=== PATIENT | female | born 1950 | race Caucasian/White ===

== ENCOUNTER → 2018-01-26 10:02 | Outpatient (CLI) | payer MEDICARE, SELFPAY ==
[2018-01-26 10:52] LABS: Add Manual Diff / Slide Review NO; Basophils Percent Auto 0.8 % (0-2); Eosinophils Percent Auto 4.3 % (2-4); Hematocrit 42.7 % (36-46); Hemoglobin 14.3 g/dL (12.0-16.0); Lymphocytes Percent Auto 53.9 % (25-40); Mean Corpuscular HGB Conc 33.5 % (30-36); Mean Corpuscular Hemoglobin 32.5 PG (26-34); Monocytes Percent Auto 6.5 % (3-14); Neutrophils Absolute Auto 1800 /uL (3000-5900); Neutrophils Percent Auto 34.5 % (50-75); Platelet Count 288 X10^3/uL (150-400); Red Cell Distribution Width 13.2 % (11.6-14.8); White Blood Cell Count 5.2 X10^3/uL (4.5-11.0)
[2018-01-26 11:15] LABS: Alanine Aminotransferase 38 IU/L (9-52); Albumin 4.8 g/dL (3.5-5.0); Alkaline Phosphatase 64 U/L (38-126); Aspartate Aminotransferase 23 IU/L (14-36); BUN Creatinine Ratio 23.3 (6-22); Bilirubin Total 0.7 mg/dL (0.2-1.3); Blood Urea Nitrogen 14 mg/dL (7-17); Calcium 9.9 mg/dL (8.4-10.2); Carbon Dioxide 28 mmol/L (22-32); Chloride 102 mmol/L (98-107); Cholesterol 264 mg/dL (140-199); Estimated Glomerular Filt Rate > 60.0 mL/min (>60); Globulin 2.4 g/dL (1.7-4.1); Glucose 97 mg/dL (80-110); HDL Cholesterol 95 mg/dL (40-60); HEMOLYSIS < 15 (0-50); LDL Cholesterol Calculated 146 mg/dL (<100); Potassium 4.9 mmol/L (3.4-5.1); Sodium 141 mmol/L (137-145); Total Protein 7.2 g/dL (6.3-8.2); Triglycerides 115 mg/dL (35-150)
[2018-01-26 11:46] LABS: Thyroid Stimulating Hormone 0.56 uIU/mL (0.47-4.68)
== END ==
PROVIDERS: PCP Internal Medicine; Visit Provider Internal Medicine
DX: E78.5 Hyperlipidemia, unspecified (principal); M81.0 Age-related osteoporosis without current pathological fracture; Z87.19 Personal history of other diseases of the digestive system
CPT/HCPCS: 36415; 80053; 80061; 84443; 85025

== ENCOUNTER → 2018-02-20 09:38 | Outpatient (CLI) | payer MEDICARE, SELFPAY | PROVIDERS: PCP Internal Medicine; Visit Provider Internal Medicine | DX: M81.0 Age-related osteoporosis without current pathological fracture (principal); Z78.0 Asymptomatic menopausal state; E78.5 Hyperlipidemia, unspecified; Z87.19 Personal history of other diseases of the digestive system; Z82.62 Family history of osteoporosis; Z87.891 Personal history of nicotine dependence | CPT/HCPCS: 77080 ==

== ENCOUNTER → 2019-10-14 13:35 | Outpatient (CLI) | payer MEDICARE, OTHER, SELFPAY | PROVIDERS: PCP Internal Medicine; Referring Provider Internal Medicine; Visit Provider Internal Medicine | DX: Z13.820 Encounter for screening for osteoporosis (principal); M85.851 Other specified disorders of bone density and structure, right thigh; Z78.0 Asymptomatic menopausal state; Z87.891 Personal history of nicotine dependence; Z82.62 Family history of osteoporosis | CPT/HCPCS: 77080 ==

== ENCOUNTER → 2019-10-18 16:38 | Outpatient (CLI) | payer MEDICARE, OTHER, SELFPAY ==
--- NOTE | 2019-10-18 16:42 | DI.MG.S_ITS ---
BILATERAL DIGITAL SCREENING MAMMOGRAM 3D/2D WITH CAD: 10/18/2019 CLINICAL: Routine screening. Comparison is made to exams dated: 06/02/2017 mammogram, 04/22/2016 mammogram, 09/28/2015 mammogram, and 03/30/2015 mammogram - [facility]. The tissue of both breasts is heterogeneously dense. This may lower the sensitivity of mammography. Current study was also evaluated with a Computer Aided Detection (CAD) system. No significant masses, calcifications, or other findings are seen in either breast. There has been no significant interval change. IMPRESSION: NEGATIVE There is no mammographic evidence of malignancy. A 1 year screening mammogram is recommended. This exam was interpreted at Station ID: [id number]. NOTE: For mammograms, a report in lay terms will be sent to the patient. Approximately 15% of breast malignancies will not be visualized mammographically. In the management of a palpable breast mass, a negative mammogram must not discourage biopsy of a clinically suspicious lesion. Electronically Signed By: Traci dumont/fan:10/19/2019 08:38:42 copy to: Deanne Romero letter sent: Normal Exam ACR BI-RADS Category 1: Negative 3341F
== END ==
PROVIDERS: PCP Internal Medicine; Referring Provider Family Medicine; Visit Provider Internal Medicine
DX: Z12.31 Encounter for screening mammogram for malignant neoplasm of breast (principal)
CPT/HCPCS: 77063; 77067

== ENCOUNTER → 2020-10-19 15:16 | Outpatient (CLI) | payer MEDICARE, OTHER, SELFPAY ==
--- NOTE | 2020-10-19 | DI.MG.S_ITS ---
BILATERAL DIGITAL SCREENING MAMMOGRAM 3D/2D WITH CAD: 10/19/2020 CLINICAL: Routine screening. Comparison is made to exams dated: 10/18/2019 mammogram - [facility], 06/02/2017 mammogram, and 04/22/2016 mammogram - [facility]. The tissue of both breasts is extremely dense, which lowers the sensitivity of mammography. Current study was also evaluated with a Computer Aided Detection (CAD) system. There is an irregular equal density asymmetry with an indistinct margin in the right breast at 11 o'clock posterior depth. No other significant masses, calcifications, or other findings are seen in either breast. IMPRESSION: INCOMPLETE: NEEDS ADDITIONAL IMAGING EVALUATION The irregular equal density asymmetry in the right breast is indeterminate. Mediolateral, spot magnification, and exaggerated CC views as well as additional views with possible ultrasound are recommended. This exam was interpreted at Station ID: [id number]. NOTE: For mammograms, a report in lay terms will be sent to the patient. Approximately 15% of breast malignancies will not be visualized mammographically. In the management of a palpable breast mass, a negative mammogram must not discourage biopsy of a clinically suspicious lesion. Electronically Signed By: Len martin/fan:10/19/2020 15:49:29 copy to: Deanne Romero letter sent: Additional Imaging Needed ACR BI-RADS Category 0: Incomplete 3340F
== END ==
PROVIDERS: PCP Internal Medicine; Referring Provider Internal Medicine; Visit Provider Internal Medicine
DX: Z12.31 Encounter for screening mammogram for malignant neoplasm of breast (principal)
CPT/HCPCS: 77063; 77067

== ENCOUNTER → 2020-11-10 08:39 | Outpatient (CLI) | payer MEDICARE, OTHER, SELFPAY ==
--- NOTE | 2020-11-10 | DI.MG.S_ITS ---
UNILATERAL RIGHT DIGITAL DIAGNOSTIC MAMMOGRAM 3D/2D WITH ADDITIONAL VIEWS: 11/10/2020 CLINICAL: Additional evaluation requested from prior study. Comparison is made to exams dated: 10/19/2020 mammogram, 10/18/2019 mammogram - [facility], and 06/02/2017 mammogram - [facility]. The tissue of right breast is extremely dense, which lowers the sensitivity of mammography. The irregular equal density asymmetry with an indistinct margin in the right axillary tail is no longer seen and most likely is fibroglandular tissue. No other significant masses or calcifications are seen in the breast. There has been no significant interval change. IMPRESSION: BENIGN There is no mammographic evidence of malignancy. Return to annual mammogram screening schedule is recommended. This exam was interpreted at Station ID: [id number]. NOTE: For mammograms, a report in lay terms will be sent to the patient. Approximately 15% of breast malignancies will not be visualized mammographically. In the management of a palpable breast mass, a negative mammogram must not discourage biopsy of a clinically suspicious lesion. Electronically Signed By: Blanco Hamm M.D., jr/fan:11/13/2020 14:46:38 copy to: Deanne Romero letter sent: Normal Exam ACR BI-RADS Category 2: Benign Finding(s) 3342F
== END ==
PROVIDERS: PCP Internal Medicine; Referring Provider Internal Medicine; Visit Provider Internal Medicine
DX: R92.8 Other abnormal and inconclusive findings on diagnostic imaging of breast (principal)
CPT/HCPCS: 77065; G0279

== ENCOUNTER → 2021-08-16 08:40 | Outpatient (CLI) | payer MEDICARE, OTHER, SELFPAY ==
--- NOTE | 2021-08-16 | DI.MRI.S_ITS ---
PROCEDURE: MR STROKE Pre- and post-contrast brain MRI, non-contrast brain MR angiogram, pre- and postcontrast neck MR angiogram INDICATIONS: Memory loss TECHNIQUE: Brain: Noncontrast axial T1 spin echo, axial T2 fast spin echo, sagittal and axial FLAIR, coronal T2 fast spin echo, axial gradient echo, axial diffusion and ADC through the brain. After the administration of contrast, axial 3D VIBE of the cranial vasculature and brain. Brain MRA: Non-contrast 3-D time of flight MR angiogram, with multiple qlqqgov-viughvhyw-wgvlqsucwp (MIP) reformats performed. Neck MRA: Axial and sagittal TruFISP through the neck. Coronal dynamic MR angiogram during administration of contrast in the arterial and venous phases, with 3-dimenstional muboviv-dyihewzbx-yiucncamcm (MIP) reformats constructed from subtraction images. COMPARISON: None. FINDINGS: Image quality: Excellent. BRAIN: CSF spaces: Ventricles are normal in size and shape. Basal cisterns are patent. No extra-axial fluid collections. Brain: No intracranial bleeds or mass effects. Castro-white matter interface is normal. Diffusion weighted images show no acute ischemic insults. Brainstem appears normal. Normal intravascular flow voids are present. No abnormal intracranial enhancement. Skull and face: Calvarial marrow signal is normal. Orbits appear normal. Sinuses: Sinuses and mastoids are clear. BRAIN MR ANGIOGRAM: Anterior circulation: Intracranial internal carotid arteries are normal in size and enhancement. The flow within the paired anterior cerebral arteries is normal and symmetric. The flow within the middle cerebral arteries is normal and symmetric. The anterior communicating artery is seen. No stenoses, occlusions, or aneurysms. Posterior circulation: Right vertebral artery dominance. Diminutive left vertebral artery predominantly terminates in the posterior inferior cerebellar artery with a small hypoplastic contribution to the normal basilar artery. 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 The P2 segment is supplied by a widely patent posterior communicating artery. Remainder of the distal vasculature unremarkable. No stenoses, occlusions, or aneurysms. NECK MR ANGIOGRAM: Carotids: Great vessels demonstrate a conventional anatomy as they arise from the aortic arch. The origins of the common carotid arteries appear patent. The calibers and courses of both common carotid arteries are normal. The bifurcation regions appear normal bilaterally. The internal carotid arteries demonstrate normal course and caliber. Posterior circulation: The origins of the vertebral arteries appear patent. More superior portions of both vertebral arteries demonstrate normal course and caliber, and join to form a normal appearing basilar artery. Right vertebral artery dominance Miscellaneous: Subclavian arteries appear patent. Pre-contrast images through the neck show no soft tissue abnormalities. IMPRESSION: 1. Unremarkable MRI brain without intracranial hemorrhage, infarct or mass lesion. 2. Normal MR angiogram of the brain without large vessel occlusion, aneurysm or vascular malformation 3. Unremarkable MR angiogram of the neck. No significant stenosis Approved by: Marco De La Torre M.D. on 08/16/2021 at 11:20
== END ==
PROVIDERS: Family Provider Family Medicine; PCP Internal Medicine; Referring Provider Internal Medicine; Visit Provider Internal Medicine
DX: R41.3 Other amnesia (principal)
CPT/HCPCS: 70548; 70553; A9579

== ENCOUNTER 2021-08-29 11:15 | Outpatient (RCR) | payer MEDICARE, OTHER, SELFPAY ==
--- NOTE | 2021-07-25 11:58 | PT.OIE ---
Current Diagnoses Other female genital prolapse (07/25/21) Unspecified urinary incontinence (07/25/21) Past Medical History (Last Updated 01/25/18 @ 22:09 by Janie Guerra) Chicken pox Foot fracture Measles Mumps Osteoarthritis (~1999) Osteopenia Osteoporosis Visit Care Team Role Provider Type EULALIO Viramontes Primary Care Provider Advanced Aerospace Project Manager Specialty: [facility] Practice Address: [address] [place] [address], [facility] Email: [email or web address] Chris Romero MD Family Provider Physician Specialty: [facility] Practice Address: [address] [place] [address], [id number] Email: [email or web address] Jenny Dominguez MD Attending Provider Physician Referring Provider Specialty: FIRE PREVENTION OFFICER Address: [address] [place] [address], [facility] Email: [email or web address] Physical Therapy Initial Evaluation PT-OP-A Visit Information Start: 07/17/21 14:02 Freq: Status: Active Protocol: Document 07/25/21 08:15 AMB (Rec: 07/25/21 09:09 AMB [id number]) Out-Patient Physical Therapy Visit Information Visit Information Visit Type Treatment Note Visit Start Time 08:15 Visit Stop Time 09:00 Total Visit Minutes 45 Visit Number 1 PT-OP-B Current Condition Start: 07/17/21 14:02 Freq: Status: Active Protocol: Document 07/25/21 08:15 AMB (Rec: 07/25/21 09:09 AMB [id number]) Current Condition History of Current Condition Onset Date 2 months ago Current Complaints Prolapse, urgency, L History of Current Condition Prolapse, urgency worst over the past 2 months. L hip injury 6 years ago skiing. Groin continues to feel weak. 1 vaginal delivery denies extended pushing. Numbness in anterior left thigh. Denies regular contipation, coughing, more aware of lifting now. Personal Factors Other Personal Factors That May Effect L hip/groin injury- chronic Therapy/Recovery PT-OP-C Subjective Start: 07/17/21 14:02 Freq: Status: Active Protocol: Document 07/25/21 08:15 AMB (Rec: 07/25/21 11:58 AMB [id number]) Patient Questionnaires Pelvic Pain and Urgency/Frequency Patient Symptom Scale Pelvic Pain Score 1 PT-OP-I Pelvic Floor Start: 07/17/21 14:02 Freq: Status: Active Protocol: Document 07/25/21 08:15 AMB (Rec: 07/25/21 11:35 AMB [id number]) Pelvic Floor Assessment Urine Pelvic Floor Surgery No Urinary Symptoms Prolapse Leakage Cause Urge Voiding Frequency 8/day Nocturia 0 Urine Pad Type Panty Liner Pelvic Clock Pelvic Clock 12-3 Atrophy,Tightness Pelvic Clock 3-6 Atrophy,Tightness Pelvic Clock 6-9 Atrophy,Tightness Pelvic Clock 9-12 Atrophy,Tightness Prolapse Cystocele Grade 2 Perineal Descent Resting Absent Bearing Present Contraction Ability Voluntary Contraction Moderate Voluntary Relaxation Moderate Manual Muscle Testing Left 3 Manual Muscle Testing Right 3 Manual Muscle Testing Anterior 3 Manual Muscle Testing Posterior 3 Muscle Endurance (Seconds) 7 Number of Quick Contractions In 10 5 Seconds Comments Pelvic Floor Comments Tightness throughout pelvic floor, did not observe more weakness or tightness on the left. PT-OP-Q Treatments Start: 07/17/21 14:02 Freq: Status: Active Protocol: Document 07/25/21 08:15 AMB (Rec: 07/25/21 11:35 AMB [id number]) Therapeutic Exercises Supine Exercises 1 Supine Exercise Name quick flicks and long holds Self-Care/Home Management Treatment Education Other Education urge suppression PT-OP-T Assessment and Plan Start: 07/17/21 14:02 Freq: Status: Active Protocol: Document 07/25/21 08:15 AMB (Rec: 07/25/21 11:58 AMB [id number]) Physical Therapy Assessment Rehab Potential Rehabilitation Potential Good Evaluation Complexity Number of Personal Factors/Comorbidities 1-2 Number of Body Systems Impaired 1-2 Clinical Presentation at Evaluation Stable Impairments Impairments Activity Tolerance,Functional Activities,Strength Goals Prolapse Short Term Goal (STG) Radha will lift 10 pounds from to floor to chest height without a feeling of prolapse. STG Duration 4 weeks Two Impairment Incontinence Fpc Goal (LTG) Radha will use urge reduction techniques to avoid urge incontinence when walking in her backdoor. LTG Duration 8 weeks One Impairment Pelvic floor strength Short Term Goal (STG) Radha will contract her pelvic floor for 10 seconds. STG Duration 4 weeks Supervisor Vegetable Farming Goal (LTG) Radha will contract her pelvic floor while moving from sit to stand. LTG Duration 8 weeks Assessment Summary Assessment Radha attends physical therapy with new onset prolapse symptoms. She is aware of the symptoms with lifting and also after bowel movement, but denies straining . She does also endorse urge urinary incontinence. Pt evaluation did show moderate pelvic floor strength, but Radha would benefit from strengthening to improve the length of her hold. She will also need to improve her strength against gravity so that she can contract her pelvic floor while moving from sit to stand and lifting. She will also benefit from PT for instruction in urge incontinence symptoms. Physical Therapy Plan Frequency and Duration Frequency of Treatment 1x/Week Duration of Treatment 8 weeks Plan of Care Start Date 07/25/21 Plan of Care End Date 09/23/21 Therapeutic Interventions Therapeutic Interventions Home Exercise Program,Manual Therapy,Neuromuscular Re- education,Self-Care/Home Management,Therapeutic Activities,Therapeutic Exercises Modalities Biofeedback,Cold Pack/Ice Massage,Electric Stimulation Next Visit Focus/Plan Next Note Type Treatment Note Next Visit Plan biofeedback, work into sitting /standing, check scheduling
--- NOTE | 2021-07-25 11:59 | PT.OPPOC ---
Physical, Occupational & Speech Therapy At [facility] Current Diagnoses Other female genital prolapse (07/25/21) Unspecified urinary incontinence (07/25/21) Visit Care Team Role Provider Type EULALIO Viramontes Primary Care Provider Advanced Retail Operations Manager Specialty: [facility] Practice Address: [address] [place] [address], [address] Email: [email or web address] Chris Romero MD Family Provider Physician Specialty: [facility] Practice Address: [address] [place] [address], [id number] Email: [email or web address] Jenny Dominguez MD Attending Provider Physician Referring Provider Specialty: FINANCIAL RESERVE CLERK Address: [address] [place] [address], [facility] Email: [email or web address] Plan Of Care PT-OP-T Assessment and Plan Start: 07/17/21 14:02 Freq: Status: Active Protocol: Document 07/25/21 08:15 AMB (Rec: 07/25/21 11:58 AMB [id number]) Physical Therapy Assessment Rehab Potential Rehabilitation Potential Good Evaluation Complexity Number of Personal Factors/Comorbidities 1-2 Number of Body Systems Impaired 1-2 Clinical Presentation at Evaluation Stable Impairments Impairments Activity Tolerance,Functional Activities,Strength Goals Prolapse Short Term Goal (STG) Radha will lift 10 pounds from to floor to chest height without a feeling of prolapse. STG Duration 4 weeks Two Impairment Incontinence Head Wrestling Coach Goal (LTG) Radha will use urge reduction techniques to avoid urge incontinence when walking in her backdoor. LTG Duration 8 weeks One Impairment Pelvic floor strength Short Term Goal (STG) Radha will contract her pelvic floor for 10 seconds. STG Duration 4 weeks Head Wrestling Coach Goal (LTG) Radha will contract her pelvic floor while moving from sit to stand. LTG Duration 8 weeks Assessment Summary Assessment Radha attends physical therapy with new onset prolapse symptoms. She is aware of the symptoms with lifting and also after bowel movement, but denies straining . She does also endorse urge urinary incontinence. Pt evaluation did show moderate pelvic floor strength, but Radha would benefit from strengthening to improve the length of her hold. She will also need to improve her strength against gravity so that she can contract her pelvic floor while moving from sit to stand and lifting. She will also benefit from PT for instruction in urge incontinence symptoms. Physical Therapy Plan Frequency and Duration Frequency of Treatment 1x/Week Duration of Treatment 8 weeks Plan of Care Start Date 07/25/21 Plan of Care End Date 09/23/21 Therapeutic Interventions Therapeutic Interventions Home Exercise Program,Manual Therapy,Neuromuscular Re- education,Self-Care/Home Management,Therapeutic Activities,Therapeutic Exercises Modalities Biofeedback,Cold Pack/Ice Massage,Electric Stimulation Next Visit Focus/Plan Next Note Type Treatment Note Next Visit Plan biofeedback, work into sitting /standing, check scheduling Plan of Care Dates Plan of Care Start Date 07/25/21 Plan of Care End Date 09/23/21 Electronically Signed by: Beverley Santillan, PT 07/25/21 [id number] If you are in agreement with this Plan of Care, please return a signed and dated copy. I have reviewed this Plan of Care and certify that the skilled therapy services above are required to meet the patient?s needs. Physician Signature Date Printed Name and Credentials Clinical Instructor Signature Printed Name and Credentials
--- NOTE | 2021-07-31 09:41 | PT.OTN ---
Current Diagnoses Other female genital prolapse (07/31/21) Unspecified urinary incontinence (07/31/21) Physical Therapy Treatment Note PT-OP-A Visit Information Start: 07/17/21 14:02 Freq: Status: Active Protocol: Document 07/31/21 08:26 AMB (Rec: 07/31/21 09:12 AMB [id number]) Out-Patient Physical Therapy Visit Information Visit Information Visit Type Treatment Note Visit Start Time 08:15 Visit Stop Time 09:00 Total Visit Minutes 45 Visit Number 2 PT-OP-B Current Condition Start: 07/17/21 14:02 Freq: Status: Active Protocol: Document 07/25/21 08:15 AMB (Rec: 07/25/21 09:09 AMB [id number]) Current Condition History of Current Condition Onset Date 2 months ago Current Complaints Prolapse, urgency, L History of Current Condition Prolapse, urgency worst over the past 2 months. L hip injury 6 years ago skiing. Groin continues to feel weak. 1 vaginal delivery denies extended pushing. Numbness in anterior left thigh. Denies regular contipation, coughing, more aware of lifting now. Personal Factors Other Personal Factors That May Effect L hip/groin injury- chronic Therapy/Recovery PT-OP-C Subjective Start: 07/17/21 14:02 Freq: Status: Active Protocol: Document 07/31/21 08:26 AMB (Rec: 07/31/21 09:12 AMB [id number]) OP-PT Subjective Patient Comments Patient Comments Has been working on voiding less frequently. This is going well. Can continue to feel prolapse with gardening. PT-OP-I Pelvic Floor Start: 07/17/21 14:02 Freq: Status: Active Protocol: Document 07/25/21 08:15 AMB (Rec: 07/25/21 11:35 AMB [id number]) Pelvic Floor Assessment Urine Pelvic Floor Surgery No Urinary Symptoms Prolapse Leakage Cause Urge Voiding Frequency 8/day Nocturia 0 Urine Pad Type Panty Liner Pelvic Clock Pelvic Clock 12-3 Atrophy,Tightness Pelvic Clock 3-6 Atrophy,Tightness Pelvic Clock 6-9 Atrophy,Tightness Pelvic Clock 9-12 Atrophy,Tightness Prolapse Cystocele Grade 2 Perineal Descent Resting Absent Bearing Present Contraction Ability Voluntary Contraction Moderate Voluntary Relaxation Moderate Manual Muscle Testing Left 3 Manual Muscle Testing Right 3 Manual Muscle Testing Anterior 3 Manual Muscle Testing Posterior 3 Muscle Endurance (Seconds) 7 Number of Quick Contractions In 10 5 Seconds Comments Pelvic Floor Comments Tightness throughout pelvic floor, did not observe more weakness or tightness on the left. PT-OP-Q Treatments Start: 07/17/21 14:02 Freq: Status: Active Protocol: Document 07/31/21 08:15 AMB (Rec: 07/31/21 09:31 AMB [id number]) Therapeutic Exercises Supine Exercises 1 Supine Exercise Name quick flicks and long holds Comments wiht legs elevated Sitting Exercises roll in roll out Reps/Minutes 10x2 Comments #3 band Standing Exercises quick flicks/long holds Comments with WBOS vs NBOS vs stride stance PT-OP-T Assessment and Plan Start: 07/17/21 14:02 Freq: Status: Active Protocol: Document 07/31/21 08:26 AMB (Rec: 07/31/21 09:12 AMB [id number]) Physical Therapy Assessment Assessment Summary Assessment Radha tolerated pelvic floor exercises well. Started instruction in lifting mechanics to avoid over pressure on pelvic floor, a lot of cueing for breath. Also instructed in posterior pelvic tilt/legs up posture. Physical Therapy Plan Next Visit Focus/Plan Next Note Type Treatment Note Next Visit Plan biofeedback, work into standing,
--- NOTE | 2021-08-07 09:18 | PT.OTN ---
Current Diagnoses Other female genital prolapse (08/07/21) Unspecified urinary incontinence (08/07/21) Physical Therapy Treatment Note PT-OP-A Visit Information Start: 07/17/21 14:02 Freq: Status: Active Protocol: Document 08/07/21 08:19 AMB (Rec: 08/07/21 09:18 AMB [id number]) Out-Patient Physical Therapy Visit Information Visit Information Visit Type Treatment Note Visit Start Time 08:15 Visit Stop Time 09:00 Total Visit Minutes 45 Visit Number 3 PT-OP-B Current Condition Start: 07/17/21 14:02 Freq: Status: Active Protocol: Document 07/25/21 08:15 AMB (Rec: 07/25/21 09:09 AMB [id number]) Current Condition History of Current Condition Onset Date 2 months ago Current Complaints Prolapse, urgency, L History of Current Condition Prolapse, urgency worst over the past 2 months. L hip injury 6 years ago skiing. Groin continues to feel weak. 1 vaginal delivery denies extended pushing. Numbness in anterior left thigh. Denies regular contipation, coughing, more aware of lifting now. Personal Factors Other Personal Factors That May Effect L hip/groin injury- chronic Therapy/Recovery PT-OP-C Subjective Start: 07/17/21 14:02 Freq: Status: Active Protocol: Document 08/07/21 08:19 AMB (Rec: 08/07/21 09:18 AMB [id number]) OP-PT Subjective Patient Comments Patient Comments Pt reports she is continuing to go less frequently, she can still feel prolapse with lifting. PT-OP-I Pelvic Floor Start: 07/17/21 14:02 Freq: Status: Active Protocol: Document 07/25/21 08:15 AMB (Rec: 07/25/21 11:35 AMB [id number]) Pelvic Floor Assessment Urine Pelvic Floor Surgery No Urinary Symptoms Prolapse Leakage Cause Urge Voiding Frequency 8/day Nocturia 0 Urine Pad Type Panty Liner Pelvic Clock Pelvic Clock 12-3 Atrophy,Tightness Pelvic Clock 3-6 Atrophy,Tightness Pelvic Clock 6-9 Atrophy,Tightness Pelvic Clock 9-12 Atrophy,Tightness Prolapse Cystocele Grade 2 Perineal Descent Resting Absent Bearing Present Contraction Ability Voluntary Contraction Moderate Voluntary Relaxation Moderate Manual Muscle Testing Left 3 Manual Muscle Testing Right 3 Manual Muscle Testing Anterior 3 Manual Muscle Testing Posterior 3 Muscle Endurance (Seconds) 7 Number of Quick Contractions In 10 5 Seconds Comments Pelvic Floor Comments Tightness throughout pelvic floor, did not observe more weakness or tightness on the left. PT-OP-Q Treatments Start: 07/17/21 14:02 Freq: Status: Active Protocol: Document 08/07/21 08:19 AMB (Rec: 08/07/21 09:18 AMB [id number]) Therapeutic Exercises Supine Exercises hip flexor stretch Reps/Minutes 30x2 butterfly Reps/Minutes 30x2 1 Supine Exercise Name quick flicks and long holds Comments wiht legs elevated Sitting Exercises roll in roll out Reps/Minutes 10x2 Comments #3 band Standing Exercises quick flicks/long holds Comments with WBOS vs NBOS vs stride stance PT-OP-T Assessment and Plan Start: 07/17/21 14:02 Freq: Status: Active Protocol: Document 08/07/21 08:19 AMB (Rec: 08/07/21 09:18 AMB [id number]) Physical Therapy Assessment Goals Prolapse Short Term Goal (STG) Radha will lift 10 pounds from to floor to chest height without a feeling of prolapse. STG Duration 4 weeks Two Impairment Incontinence Usp Goal (LTG) Radha will use urge reduction techniques to avoid urge incontinence when walking in her backdoor. LTG Duration 8 weeks One Impairment Pelvic floor strength Short Term Goal (STG) Radha will contract her pelvic floor for 10 seconds. STG Duration 4 weeks Usp Goal (LTG) Radha will contract her pelvic floor while moving from sit to stand. LTG Duration 8 weeks Assessment Summary Assessment Radha is concerned about the tightness in her left pelvis Gave butterfly and hip flexor stretch as HEP. Reviewed lifting mechanics/body mechanics to reduce strain on pelvic floor with lifting. Physical Therapy Plan Next Visit Focus/Plan Next Note Type Treatment Note Next Visit Plan biofeedback, work into standing,
--- NOTE | 2021-08-23 12:09 | PT.OTN ---
Current Diagnoses Other female genital prolapse (08/23/21) Unspecified urinary incontinence (08/23/21) Physical Therapy Treatment Note PT-OP-A Visit Information Start: 07/17/21 14:02 Freq: Status: Active Protocol: Document 08/23/21 08:18 AMB (Rec: 08/23/21 09:05 AMB [id number]) Out-Patient Physical Therapy Visit Information Visit Information Visit Type Treatment Note Visit Start Time 08:15 Visit Stop Time 09:00 Total Visit Minutes 45 Visit Number 4 PT-OP-B Current Condition Start: 07/17/21 14:02 Freq: Status: Active Protocol: Document 07/25/21 08:15 AMB (Rec: 07/25/21 09:09 AMB [id number]) Current Condition History of Current Condition Onset Date 2 months ago Current Complaints Prolapse, urgency, L History of Current Condition Prolapse, urgency worst over the past 2 months. L hip injury 6 years ago skiing. Groin continues to feel weak. 1 vaginal delivery denies extended pushing. Numbness in anterior left thigh. Denies regular contipation, coughing, more aware of lifting now. Personal Factors Other Personal Factors That May Effect L hip/groin injury- chronic Therapy/Recovery PT-OP-C Subjective Start: 07/17/21 14:02 Freq: Status: Active Protocol: Document 08/23/21 08:18 AMB (Rec: 08/23/21 09:05 AMB [id number]) OP-PT Subjective Patient Comments Patient Comments Pt is more aware of the prolapse and trying to avoid it. PT-OP-I Pelvic Floor Start: 07/17/21 14:02 Freq: Status: Active Protocol: Document 07/25/21 08:15 AMB (Rec: 07/25/21 11:35 AMB [id number]) Pelvic Floor Assessment Urine Pelvic Floor Surgery No Urinary Symptoms Prolapse Leakage Cause Urge Voiding Frequency 8/day Nocturia 0 Urine Pad Type Panty Liner Pelvic Clock Pelvic Clock 12-3 Atrophy,Tightness Pelvic Clock 3-6 Atrophy,Tightness Pelvic Clock 6-9 Atrophy,Tightness Pelvic Clock 9-12 Atrophy,Tightness Prolapse Cystocele Grade 2 Perineal Descent Resting Absent Bearing Present Contraction Ability Voluntary Contraction Moderate Voluntary Relaxation Moderate Manual Muscle Testing Left 3 Manual Muscle Testing Right 3 Manual Muscle Testing Anterior 3 Manual Muscle Testing Posterior 3 Muscle Endurance (Seconds) 7 Number of Quick Contractions In 10 5 Seconds Comments Pelvic Floor Comments Tightness throughout pelvic floor, did not observe more weakness or tightness on the left. PT-OP-Q Treatments Start: 07/17/21 14:02 Freq: Status: Active Protocol: Document 08/23/21 08:18 AMB (Rec: 08/23/21 09:05 AMB [id number]) Therapeutic Exercises Supine Exercises 2 Supine Exercise Name supine march Reps/Minutes 2x10 Comments with PF 1 Supine Exercise Name quick flicks and long holds Comments wiht legs elevated Standing Exercises 1 Standing Exercise Name sit to stand Reps/Minutes 10 Comments long holds PT-OP-T Assessment and Plan Start: 07/17/21 14:02 Freq: Status: Active Protocol: Document 08/23/21 08:18 AMB (Rec: 08/23/21 09:05 AMB [id number]) Physical Therapy Assessment Goals Prolapse Short Term Goal (STG) Radha will lift 10 pounds from to floor to chest height without a feeling of prolapse. STG Duration 4 weeks Two Impairment Incontinence Section Leader And Machine Setter Goal (LTG) Radha will use urge reduction techniques to avoid urge incontinence when walking in her backdoor. LTG Duration 8 weeks One Impairment Pelvic floor strength Short Term Goal (STG) Radha will contract her pelvic floor for 10 seconds. STG Duration 4 weeks Halfway Goal (LTG) Radha will contract her pelvic floor while moving from sit to stand. LTG Duration 8 weeks Assessment Summary Assessment Radha needed cues today to avoid breath holding. She has been having a difficult time finding time to do her exercises, so time was spent today with finding ways to contract pelvic floor with every day activities (washing hands, brushing teeth, sit to stand). Justa did express concern about return to intercourse, but encouraged he rthat prolapse should not contraindicate that, would want to lubricate extensively. Physical Therapy Plan Next Visit Focus/Plan Next Note Type Treatment Note Next Visit Plan biofeedback, work into standing,
--- NOTE | 2021-08-29 15:46 | PT.OTN ---
Current Diagnoses Other female genital prolapse (08/29/21) Unspecified urinary incontinence (08/29/21) Physical Therapy Treatment Note PT-OP-A Visit Information Start: 07/17/21 14:02 Freq: Status: Active Protocol: Document 08/29/21 11:18 AMB (Rec: 08/29/21 12:02 AMB [id number]) Out-Patient Physical Therapy Visit Information Visit Information Visit Type Treatment Note Visit Start Time 11:15 Visit Stop Time 12:00 Total Visit Minutes 45 Visit Number 5 PT-OP-B Current Condition Start: 07/17/21 14:02 Freq: Status: Active Protocol: Document 07/25/21 08:15 AMB (Rec: 07/25/21 09:09 AMB [id number]) Current Condition History of Current Condition Onset Date 2 months ago Current Complaints Prolapse, urgency, L History of Current Condition Prolapse, urgency worst over the past 2 months. L hip injury 6 years ago skiing. Groin continues to feel weak. 1 vaginal delivery denies extended pushing. Numbness in anterior left thigh. Denies regular contipation, coughing, more aware of lifting now. Personal Factors Other Personal Factors That May Effect L hip/groin injury- chronic Therapy/Recovery PT-OP-C Subjective Start: 07/17/21 14:02 Freq: Status: Active Protocol: Document 08/29/21 11:18 AMB (Rec: 08/29/21 12:02 AMB [id number]) OP-PT Subjective Patient Comments Patient Comments Pt has been able to get into a pattern of doing her exercises, hasn't felt any situation where she has been feeling any prolapse PT-OP-I Pelvic Floor Start: 07/17/21 14:02 Freq: Status: Active Protocol: Document 07/25/21 08:15 AMB (Rec: 07/25/21 11:35 AMB [id number]) Pelvic Floor Assessment Urine Pelvic Floor Surgery No Urinary Symptoms Prolapse Leakage Cause Urge Voiding Frequency 8/day Nocturia 0 Urine Pad Type Panty Liner Pelvic Clock Pelvic Clock 12-3 Atrophy,Tightness Pelvic Clock 3-6 Atrophy,Tightness Pelvic Clock 6-9 Atrophy,Tightness Pelvic Clock 9-12 Atrophy,Tightness Prolapse Cystocele Grade 2 Perineal Descent Resting Absent Bearing Present Contraction Ability Voluntary Contraction Moderate Voluntary Relaxation Moderate Manual Muscle Testing Left 3 Manual Muscle Testing Right 3 Manual Muscle Testing Anterior 3 Manual Muscle Testing Posterior 3 Muscle Endurance (Seconds) 7 Number of Quick Contractions In 10 5 Seconds Comments Pelvic Floor Comments Tightness throughout pelvic floor, did not observe more weakness or tightness on the left. PT-OP-Q Treatments Start: 07/17/21 14:02 Freq: Status: Active Protocol: Document 08/29/21 12:56 AMB (Rec: 08/29/21 12:57 AMB [id number]) Therapeutic Exercises Standing Exercises lateral lunges Reps/Minutes 10 Comments with pelvic floor contract fwd lunges Reps/Minutes 10 Comments with pelvic floor contract 1 Standing Exercise Name sit to stand Reps/Minutes 10 Comments long holds quick flicks/long holds Comments with WBOS vs NBOS vs stride stance PT-OP-T Assessment and Plan Start: 07/17/21 14:02 Freq: Status: Active Protocol: Document 08/29/21 11:18 AMB (Rec: 08/29/21 12:02 AMB [id number]) Physical Therapy Assessment Goals Prolapse Short Term Goal (STG) Radha will lift 10 pounds from to floor to chest height without a feeling of prolapse. STG Duration MET Two Impairment Incontinence Repairer Veneer Sheet Goal (LTG) Radha will use urge reduction techniques to avoid urge incontinence when walking in her backdoor. LTG Duration 8 weeks One Impairment Pelvic floor strength Short Term Goal (STG) Radha will contract her pelvic floor for 10 seconds. STG Duration MET Assisted Goal (LTG) Radha will contract her pelvic floor while moving from sit to stand. LTG Duration MET Assessment Summary Assessment Yancy is doing well. She has been careful with her lifting. She is wondering if she needs more PT, as she hasn 't been having sx the last week. Will reassess over the next month, and ok to cancel if feeling well in a month at next scheduled appointmnet. If still having prolapse sx at that time, would recommend continued PT. Physical Therapy Plan Next Visit Focus/Plan Next Note Type Treatment Note Next Visit Plan progress standing with movement
--- NOTE | 2021-10-11 16:02 | PT.OPDS ---
Current Diagnoses Other female genital prolapse (08/29/21) Unspecified urinary incontinence (08/29/21) Visit Care Team Role Provider Type EULALIO Viramontes Primary Care Provider Advanced Agricultural Sciences Professor Specialty: Family Practice Address: [address] [place] [address], [id number] Email: [email or web address] Chris Romero MD Family Provider Physician Specialty: Family Practice Address: [address] [place] [address], [facility] Email: [email or web address] Jenny Dominguez MD Attending Provider Physician Referring Provider Specialty: COLLECTION ADMINISTRATOR Address: [address] [place] [address], [id number] Email: [email or web address] Visit Number Visit Number 5 Discharge Summary PT-OP-B Current Condition Start: 07/17/21 14:02 Freq: Status: Active Protocol: Document 07/25/21 08:15 AMB (Rec: 07/25/21 09:09 AMB [id number]) Current Condition History of Current Condition Onset Date 2 months ago Current Complaints Prolapse, urgency, L History of Current Condition Prolapse, urgency worst over the past 2 months. L hip injury 6 years ago skiing. Groin continues to feel weak. 1 vaginal delivery denies extended pushing. Numbness in anterior left thigh. Denies regular contipation, coughing, more aware of lifting now. Personal Factors Other Personal Factors That May Effect L hip/groin injury- chronic Therapy/Recovery PT-OP-C Subjective Start: 07/17/21 14:02 Freq: Status: Active Protocol: Document 08/29/21 11:18 AMB (Rec: 08/29/21 12:02 AMB [id number]) OP-PT Subjective Patient Comments Patient Comments Pt has been able to get into a pattern of doing her exercises, hasn't felt any situation where she has been feeling any prolapse PT-OP-I Pelvic Floor Start: 07/17/21 14:02 Freq: Status: Active Protocol: Document 07/25/21 08:15 AMB (Rec: 07/25/21 11:35 AMB [id number]) Pelvic Floor Assessment Urine Pelvic Floor Surgery No Urinary Symptoms Prolapse Leakage Cause Urge Voiding Frequency 8/day Nocturia 0 Urine Pad Type Panty Liner Pelvic Clock Pelvic Clock 12-3 Atrophy,Tightness Pelvic Clock 3-6 Atrophy,Tightness Pelvic Clock 6-9 Atrophy,Tightness Pelvic Clock 9-12 Atrophy,Tightness Prolapse Cystocele Grade 2 Perineal Descent Resting Absent Bearing Present Contraction Ability Voluntary Contraction Moderate Voluntary Relaxation Moderate Manual Muscle Testing Left 3 Manual Muscle Testing Right 3 Manual Muscle Testing Anterior 3 Manual Muscle Testing Posterior 3 Muscle Endurance (Seconds) 7 Number of Quick Contractions In 10 5 Seconds Comments Pelvic Floor Comments Tightness throughout pelvic floor, did not observe more weakness or tightness on the left. PT-OP-T Assessment and Plan Start: 07/17/21 14:02 Freq: Status: Active Protocol: Document 10/11/21 15:57 AMB (Rec: 10/11/21 16:02 AMB [id number]) Physical Therapy Assessment Goals Prolapse Short Term Goal (STG) Radha will lift 10 pounds from to floor to chest height without a feeling of prolapse. STG Duration MET Two Impairment Incontinence Fci Goal (LTG) Radha will use urge reduction techniques to avoid urge incontinence when walking in her backdoor. LTG Duration 8 weeks One Impairment Pelvic floor strength Short Term Goal (STG) Radha will contract her pelvic floor for 10 seconds. STG Duration MET Fci Goal (LTG) Radha will contract her pelvic floor while moving from sit to stand. LTG Duration MET Assessment Summary Assessment At her last visit Yancy was doing well. She has been careful with her lifting. She had not been having symptoms for hte past week, we put her on hold for a month, but she has not contacted the clinic in that time, so she is discharged at this time. Physical Therapy Plan Discharge Physical Therapy Discharge Reasons Goals Met
== END 2021-10-15 14:38 ==
LOC: PHYS 11:15
PROVIDERS: Family Provider Family Medicine; PCP Internal Medicine; Referring Provider Specialist; Visit Provider Specialist
DX: R32 Unspecified urinary incontinence (principal); N81.89 Other female genital prolapse
CPT/HCPCS: 97110; 97161

== ENCOUNTER → 2021-10-22 14:31 | Outpatient (CLI) | payer MEDICARE, OTHER, SELFPAY ==
--- NOTE | 2021-10-22 14:33 | DI.MG.S_ITS ---
BILATERAL DIGITAL SCREENING MAMMOGRAM 3D/2D WITH CAD: 10/22/2021 CLINICAL: Routine screening. Comparison is made to exams dated: 10/19/2020 mammogram, 10/18/2019 mammogram - [facility], and 06/02/2017 mammogram - [facility]. The tissue of both breasts is extremely dense, which lowers the sensitivity of mammography. Current study was also evaluated with a Computer Aided Detection (CAD) system. No significant masses, calcifications, or other findings are seen in either breast. There has been no significant interval change. IMPRESSION: NEGATIVE There is no mammographic evidence of malignancy. A 1 year screening mammogram is recommended. Based on the Tyrer Cuzick model (a risk assessment model) the patient's lifetime risk is 8.7% and her 10 year risk is 6.5%. According to the ACR, ACS, and NCCN guidelines, an annual breast MRI exam along with mammogram is recommended if the patient's lifetime risk is 20% or greater. This exam was interpreted at Station ID: [id number]. NOTE: For mammograms, a report in lay terms will be sent to the patient. Approximately 15% of breast malignancies will not be visualized mammographically. In the management of a palpable breast mass, a negative mammogram must not discourage biopsy of a clinically suspicious lesion. Electronically Signed By: Blanco Hamm M.D., jr/fan:10/22/2021 16:03:29 copy to: Deanne Romero letter sent: Normal Exam ACR BI-RADS Category 1: Negative [id number]
== END ==
PROVIDERS: Family Provider Family Medicine; PCP Internal Medicine; Referring Provider Internal Medicine; Visit Provider Internal Medicine
DX: Z12.31 Encounter for screening mammogram for malignant neoplasm of breast (principal); Z13.820 Encounter for screening for osteoporosis; Z78.0 Asymptomatic menopausal state; M85.851 Other specified disorders of bone density and structure, right thigh; M85.852 Other specified disorders of bone density and structure, left thigh; Z92.23 Personal history of estrogen therapy
CPT/HCPCS: 77063; 77067; 77080

== ENCOUNTER → 2022-03-06 07:20 | Outpatient (CLI) | payer MEDICARE, OTHER, SELFPAY ==
--- NOTE | 2022-03-06 | DI.US.S_ITS ---
PROCEDURE: US EXTREMITY NONVASC LOWER LT INDICATIONS: MASS ON LEFT BUTTOCKS TECHNIQUE: Real-time scanning was performed of the left buttocks region , with image documentation. COMPARISON: None. FINDINGS: Grayscale and color Doppler images of the left buttocks region were acquired at the palpable area of concern. There is a heterogeneously hypoechoic shadowing mass measuring 1.3 x 0.9 x 1.4 cm. It is noted in the deep subcutaneous soft tissues, just superficial to the underlying musculature. No definite extension into the muscle identified. There is internal vascularity. Thin echogenic rim may represent peripheral calcifications. IMPRESSION: There is a 1.3 x 0.9 x 1.4 cm heterogeneously hypoechoic vascular mass correlating with palpable mass in the left buttocks region. Findings are nonspecific and may include both benign and malignant etiologies. Consider further evaluation with excisional biopsy versus percutaneous biopsy. Dictated by: Edgard Russell M.D. on 03/06/2022 at 10:21 Approved by: Edgard Russell M.D. on 03/06/2022 at 10:24
== END ==
PROVIDERS: Family Provider Internal Medicine; PCP Internal Medicine; Referring Provider Internal Medicine; Visit Provider Internal Medicine
DX: R22.2 Localized swelling, mass and lump, trunk
CPT/HCPCS: 76882

== ENCOUNTER → 2022-05-13 12:52 | Outpatient (CLI) | payer OTHER, SELFPAY ==
--- NOTE | 2022-05-13 | DI.RAD.S_ITS ---
PROCEDURE: XR HIP W PEL IF DONE LT 2V INDICATIONS: LEFT HIP PAIN TECHNIQUE: AP pelvis with lateral view(s) of the left hip(s). COMPARISON: [facility], CT, ABDOMEN/PELVIS WITH CONTRAST, 05/20/2015, 19:38. FINDINGS: Bones: No acute fractures or dislocations. Pelvic ring appears intact. Severe joint space narrowing of the left hip with articular surface deformity and spurring and subchondral sclerosis and cystic change. Findings are significantly worsened compared to the 2016 CT. Soft tissues: The visualized bowel gas pattern is normal. No suspicious soft tissue calcifications. IMPRESSION: Severe degenerative changes of the left hip. Dictated by: Alex Stoddard M.D. on 05/13/2022 at 14:21 Approved by: Alex Stoddard M.D. on 05/13/2022 at 14:24
== END ==
PROVIDERS: Family Provider Internal Medicine; PCP Internal Medicine; Referring Provider Internal Medicine; Visit Provider Internal Medicine
DX: M25.552 Pain in left hip
CPT/HCPCS: 73502

== ENCOUNTER → 2022-06-10 13:37 | Outpatient (CLI) | payer OTHER, SELFPAY | PROVIDERS: Family Provider Internal Medicine; PCP Internal Medicine; Referring Provider Orthopaedic Surgery; Visit Provider Orthopaedic Surgery | DX: Z01.818 Encounter for other preprocedural examination (principal) | CPT/HCPCS: 93005; 93010 ==

== ENCOUNTER 2022-07-08 09:45 | Outpatient (RCR) | payer OTHER, SELFPAY ==
--- NOTE | 2022-04-19 17:11 | PT.OIE ---
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) Pain in right hip (04/19/22) Weakness (04/19/22) Past Medical History (Last Updated 04/09/22 @ 14:12 by Natalie Harvey MD) Chicken pox Foot fracture Measles Mumps Osteoarthritis (~1999) Osteopenia Osteoporosis Subcutaneous mass of left lower extremity Visit Care Team Role Provider Type EULALIO Viramontes Attending Provider Advanced Baseball Club Manager Family Provider Primary Care Provider Referring Provider Specialty: Family Practice Address: [address] [place] [address], [facility] Email: [email or web address] Physical Therapy Initial Evaluation PT-OP-A Visit Information Start: 04/19/22 16:44 Freq: Status: Active Protocol: Document 04/19/22 09:00 DCW (Rec: 04/19/22 17:09 DCW [id number]) Out-Patient Physical Therapy Visit Information Visit Information Visit Type Treatment Note Visit Start Time 09:00 Visit Stop Time 10:30 Total Visit Minutes 45 Visit Number 1 Number of TIRE FABRIC IMPREGNATING RANGE TENDER Visits 0 Evaluation Information Evaluation Date 04/19/22 PT-OP-B Current Condition Start: 04/19/22 16:44 Freq: Status: Active Protocol: Document 04/19/22 09:00 DCW (Rec: 04/19/22 17:09 DCW [id number]) Current Condition History of Current Condition Onset Date One year history Current Complaints Left hip weakness, numbness History of Current Condition Pt is a 71 year old female presenting with a one year history of insidious onset of left hip weakness and numbness . Pt reports she just work up , and it felt really weird. Numbness largely in anterior thigh. Describes weakness with adduction and flexion activities. Was receiving acupuncture to help with these complaints, when male impersonator noticed a small mass on her posterior left hip . 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 Approximately two weeks ago, pt had mass removed. Pt reports she has received pathology report, unable to remember what it says, and report does not appear to be present in the [facility] system. Unclear at this time if mass was causing her subjective complaints, but pt does feel there has been some slight improvement with her numbness over the past two weeks. Continues to feel weakness with ascending/ descending stairs, as well as trying to get up and start moving quickly. Left thigh appears to have some mild, yet visible, atrophy vs right thigh. Does note that at one point, maybe about a year ago, she was skiing, and her left leg got away from her, and ended up in a pretty severe hip abduction stretch, pt unsure if this had any effect on her current symptoms. Treatment Goals Patient/Caregiver Goals Improve weakness and sensory disturbances PT-OP-C Subjective Start: 04/19/22 16:44 Freq: Status: Active Protocol: Document 04/19/22 09:00 DCW (Rec: 04/19/22 17:09 DCW [id number]) OP-PT Subjective Patient Comments Patient Comments They removed that lump, I don 't know if it made a difference, I think it might be a little better. PT-OP-F Manual Assessment Start: 04/19/22 16:44 Freq: Status: Active Protocol: Document 04/19/22 09:00 DCW (Rec: 04/19/22 17:09 DCW [id number]) Manual Assessments Joint Mobility Assessment Joint Mobility Assessment Pt reports sensation of sharp pinching in anterior hip with passive hip flexion and horizontal adduction with therapist providing over- pressure. PT-OP-J Posture/Palpation/Skin Start: 04/19/22 17:09 Freq: Status: Active Protocol: Document 04/19/22 09:00 DCW (Rec: 04/19/22 17:11 DCW [id number]) Skin Assessment Circumference Measurement Left thigh Location 15 cm superior to patella Measurement (Centimeters) 39.1 Comments R=40.8 cm PT-OP-L Special Tests Start: 04/19/22 16:44 Freq: Status: Active Protocol: Document 04/19/22 09:00 DCW (Rec: 04/19/22 17:09 DCW [id number]) Special Tests Hip Special Tests Scour Test Test Results Negative Piriformis Test Results Pinching in anterior left hip JOAN Test Results Pt very resistant, unable to allow therapist to position PT-OP-M Strength Start: 04/19/22 16:44 Freq: Status: Active Protocol: Document 04/19/22 09:00 DCW (Rec: 04/19/22 17:09 DCW [id number]) Hip Strength Hip Manual Muscle Testing Right Flexion (L2) 4+ Good+ Extension (S1) 4+ Good+ Abduction 4+ Good+ Adduction 4+ Good+ External Rotation 4+ Good+ Internal Rotation 4+ Good+ Left Flexion (L2) 4- Good- Extension (S1) 4+ Good+ Abduction 4+ Good+ Adduction 4- Good- External Rotation 4+ Good+ Internal Rotation 4+ Good+ PT-OP-Q Treatments Start: 04/19/22 16:44 Freq: Status: Active Protocol: Document 04/19/22 09:00 DCW (Rec: 04/19/22 17:09 [facility] [id number]) Therapeutic Exercises Supine Exercises Hip flexor stretch Supine Exercise Name Leg off table Side left Bridging Supine Exercise Name Bridging /c Adductor squeeze Standing Exercises Hip flexor stretch Standing Exercise Name Half-lunge hip flexor stretch Other Exercises Step-ups Other Exercise Name Step-ups Side left Equipment Used 6 step Manual Therapy Treatment Joint Mobilizations Acetabular Joint L hip /c strap - short axis Direction Lateral Grade III Body Position Hooklying PT-OP-T Assessment and Plan Start: 04/19/22 16:44 Freq: Status: Active Protocol: Document 04/19/22 09:00 DCW (Rec: 04/19/22 17:09 [facility] [id number]) Physical Therapy Assessment Rehab Potential Rehabilitation Potential Good Evaluation Complexity Number of Personal Factors/Comorbidities 1-2 Number of Body Systems Impaired 1-2 Clinical Presentation at Evaluation Stable Impairments Impairments Activity Tolerance,Functional Activities,Functional Mobility ,Pain,ROM,Strength Goals Two Impairment Anterior hip pinching with hip horizontal adduction Board Design Engineer Goal (LTG) Pt to demonstrate proper left piriformis stretch without any anterior hip pinching or sharp pain LTG Duration 06/17/22 One Impairment Pt does not have an appropriate home exercise program Short Term Goal (STG) Pt to be independent and compliant with an appropriate HEP STG Duration 05/20/22 Assessment Summary Assessment Pt presents with noticeable weakness and muscle atrophy along left thigh, as well as reports of decreased sensation . Unclear if there has been much exchange trouble shooter last two weeks following removal of mass from posterior left hip. Pt displaying signs/symptoms of capsular tightness in left hip, and responded almost immediately to capsular stretching with improved hip mobility and completely resolved pain/pinching during hip horizontal adduction. Pt very motivated for compliance with HEP, especially with results of capsular stretching . Pt will likely benefit from skilled therapy focusing on left hip mobility, joint mobilizations, LE strengthening, and flexibility training. Physical Therapy Plan Frequency and Duration Frequency of Treatment 1-2x/week Plan of Care Start Date 04/19/22 Plan of Care End Date 06/17/22 Therapeutic Interventions Therapeutic Interventions Gait Training,Joint Mobilizations,Manual Therapy, Neuromuscular Re-education, Patient/Caregiver Education, Self-Care/Home Management,Soft Tissue Mobilization, Therapeutic Activities, Therapeutic Exercises Modalities Cold Pack/Ice Massage,Hot Packs Next Visit Focus/Plan Next Note Type Treatment Note Next Visit Plan Joint mobilizations, capsular stretching, LE strengthening
--- NOTE | 2022-04-19 17:12 | PT.OPPOC ---
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) Pain in right hip (04/19/22) Weakness (04/19/22) Visit Care Team Role Provider Type EULALIO Viramontes Attending Provider Advanced Mailroom Personnel Family Provider Primary Care Provider Referring Provider Specialty: Family Practice Address: [address] [place] [address], [facility] [place] Email: Plan Of Care PT-OP-T Assessment and Plan Start: 04/19/22 16:44 Freq: Status: Active Protocol: Document 04/19/22 09:00 DCW (Rec: 04/19/22 17:09 DCW [id number]) Physical Therapy Assessment Rehab Potential Rehabilitation Potential Good Evaluation Complexity Number of Personal Factors/Comorbidities 1-2 Number of Body Systems Impaired 1-2 Clinical Presentation at Evaluation Stable Impairments Impairments Activity Tolerance,Functional Activities,Functional Mobility ,Pain,ROM,Strength Goals Two Impairment Anterior hip pinching with hip horizontal adduction Senior Living Goal (LTG) Pt to demonstrate proper left piriformis stretch without any anterior hip pinching or sharp pain LTG Duration 06/17/22 One Impairment Pt does not have an appropriate home exercise program Short Term Goal (STG) Pt to be independent and compliant with an appropriate HEP STG Duration 05/20/22 Assessment Summary Assessment Pt presents with noticeable weakness and muscle atrophy along left thigh, as well as reports of decreased sensation . 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 Pt displaying signs/symptoms of capsular tightness in left hip, and responded almost immediately to capsular stretching with improved hip mobility and completely resolved pain/pinching during hip horizontal adduction. Pt very motivated for compliance with HEP, especially with results of capsular stretching . Pt will likely benefit from skilled therapy focusing on left hip mobility, joint mobilizations, LE strengthening, and flexibility training. Physical Therapy Plan Frequency and Duration Frequency of Treatment 1-2x/week Plan of Care Start Date 04/19/22 Plan of Care End Date 06/17/22 Therapeutic Interventions Therapeutic Interventions Gait Training,Joint Mobilizations,Manual Therapy, Neuromuscular Re-education, Patient/Caregiver Education, Self-Care/Home Management,Soft Tissue Mobilization, Therapeutic Activities, Therapeutic Exercises Modalities Cold Pack/Ice Massage,Hot Packs Next Visit Focus/Plan Next Note Type Treatment Note Next Visit Plan Joint mobilizations, capsular stretching, LE strengthening Plan of Care Dates Plan of Care Start Date 04/19/22 Plan of Care End Date 06/17/22 Electronically Signed by: Feliz Barlow, PT 04/19/22 8801 If you are in agreement with this Plan of Care, please return a signed and dated copy. I have reviewed this Plan of Care and certify that the skilled therapy services above are required to meet the patient?s needs. Physician Signature Date Printed Name and Credentials Clinical Instructor Signature Printed Name and Credentials
--- NOTE | 2022-04-23 11:18 | PT.OTN ---
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 (04/23/22) Pain in right hip (04/23/22) Weakness (04/23/22) Physical Therapy Treatment Note PT-OP-A Visit Information Start: 04/19/22 16:44 Freq: Status: Active Protocol: Document 04/23/22 10:30 DCW (Rec: 04/23/22 11:18 DCW [id number]) Out-Patient Physical Therapy Visit Information Visit Information Visit Type Treatment Note Visit Start Time 10:30 Visit Stop Time 11:15 Total Visit Minutes 45 Visit Number 2 Number of MARKETING CONSULTANT Visits 0 Evaluation Information Evaluation Date 04/19/22 PT-OP-B Current Condition Start: 04/19/22 16:44 Freq: Status: Active Protocol: Document 04/19/22 09:00 DCW (Rec: 04/19/22 17:09 DCW [id number]) Current Condition History of Current Condition Onset Date One year history Current Complaints Left hip weakness, numbness History of Current Condition Pt is a 71 year old female presenting with a one year history of insidious onset of left hip weakness and numbness . Pt reports she just work up , and it felt really weird. Numbness largely in anterior thigh. Describes weakness with adduction and flexion activities. Was receiving acupuncture to help with these complaints, when manufacturing production technician noticed a small mass on her posterior left hip . 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 Approximately two weeks ago, pt had mass removed. Pt reports she has received pathology report, unable to remember what it says, and report does not appear to be present in the IH system. Unclear at this time if mass was causing her subjective complaints, but pt does feel there has been some slight improvement with her numbness over the past two weeks. Continues to feel weakness with ascending/ descending stairs, as well as trying to get up and start moving quickly. Left thigh appears to have some mild, yet visible, atrophy vs right thigh. Does note that at one point, maybe about a year ago, she was skiing, and her left leg got away from her, and ended up in a pretty severe hip abduction stretch, pt unsure if this had any effect on her current symptoms. Treatment Goals Patient/Caregiver Goals Improve weakness and sensory disturbances PT-OP-C Subjective Start: 04/19/22 16:44 Freq: Status: Active Protocol: Document 04/23/22 10:30 DCW (Rec: 04/23/22 11:18 DCW [id number]) OP-PT Subjective Patient Comments Patient Comments Sometimes I think it's better . It felt good after I was here last week. But I'll be walking along think it feels good, and then all of a sudden , it will just hurt. PT-OP-F Manual Assessment Start: 04/19/22 16:44 Freq: Status: Active Protocol: Document 04/19/22 09:00 DCW (Rec: 04/19/22 17:09 DCW [id number]) Manual Assessments Joint Mobility Assessment Joint Mobility Assessment Pt reports sensation of sharp pinching in anterior hip with passive hip flexion and horizontal adduction with therapist providing over- pressure. PT-OP-J Posture/Palpation/Skin Start: 04/19/22 17:09 Freq: Status: Active Protocol: Document 04/19/22 09:00 DCW (Rec: 04/19/22 17:11 DCW [id number]) Skin Assessment Circumference Measurement Left thigh Location 15 cm superior to patella Measurement (Centimeters) 39.1 Comments R=40.8 cm PT-OP-L Special Tests Start: 04/19/22 16:44 Freq: Status: Active Protocol: Document 04/19/22 09:00 DCW (Rec: 04/19/22 17:09 DCW [id number]) Special Tests Hip Special Tests Scour Test Test Results Negative Piriformis Test Results Pinching in anterior left hip JOAN Test Results Pt very resistant, unable to allow therapist to position PT-OP-M Strength Start: 04/19/22 16:44 Freq: Status: Active Protocol: Document 04/19/22 09:00 DCW (Rec: 04/19/22 17:09 DCW [id number]) Hip Strength Hip Manual Muscle Testing Right Flexion (L2) 4+ Good+ Extension (S1) 4+ Good+ Abduction 4+ Good+ Adduction 4+ Good+ External Rotation 4+ Good+ Internal Rotation 4+ Good+ Left Flexion (L2) 4- Good- Extension (S1) 4+ Good+ Abduction 4+ Good+ Adduction 4- Good- External Rotation 4+ Good+ Internal Rotation 4+ Good+ PT-OP-Q Treatments Start: 04/19/22 16:44 Freq: Status: Active Protocol: Document 04/23/22 10:30 DCW (Rec: 04/23/22 11:18 DCW [id number]) Gym Equipment Shuttle Recovery Unilateral Squats Resistance 37# Shuttle Recovery Platform Stable Bilateral Squats Resistance 62# Shuttle Recovery Platform Stable Therapeutic Exercises Sidelying Exercises Reverse Clamshell Sidelying Exercise Name Reverse Clamshell Side left Clamshell Sidelying Exercise Name Clamshell Side left Psoas Stretch Sidelying Exercise Name Maunal hip flexor stretch - hip into extension Standing Exercises Extension Standing Exercise Name Hip Extension Side bilateral Resistance Red Abduction Standing Exercise Name Hip Abduction Side bilateral Resistance Red Other Exercises Step-ups Other Exercise Name Step-ups/downs Side left Equipment Used 6 step Manual Therapy Treatment Joint Mobilizations Acetabular Joint L hip /c strap - short axis Direction Lateral Grade III Body Position Hooklying PT-OP-T Assessment and Plan Start: 04/19/22 16:44 Freq: Status: Active Protocol: Document 04/23/22 10:30 DCW (Rec: 04/23/22 11:18 DCW [id number]) Physical Therapy Assessment Impairments Impairments Activity Tolerance,Functional Activities,Functional Mobility ,Pain,ROM,Strength Goals Two Impairment Anterior hip pinching with hip horizontal adduction Senior Care Goal (LTG) Pt to demonstrate proper left piriformis stretch without any anterior hip pinching or sharp pain LTG Duration 06/17/22 One Impairment Pt does not have an appropriate home exercise program Short Term Goal (STG) Pt to be independent and compliant with an appropriate HEP STG Duration 05/20/22 Assessment Summary Assessment Pt tolerated treatment very well, happy to discover that she was able to perform all the strengthening exercises today without increased hip pain. Pt to continue HEP to work on strengthening and stretching. Physical Therapy Plan Frequency and Duration Frequency of Treatment 1-2x/week Plan of Care Start Date 04/19/22 Plan of Care End Date 06/17/22 Therapeutic Interventions Therapeutic Interventions Gait Training,Joint Mobilizations,Manual Therapy, Neuromuscular Re-education, Patient/Caregiver Education, Self-Care/Home Management,Soft Tissue Mobilization, Therapeutic Activities, Therapeutic Exercises Modalities Cold Pack/Ice Massage,Hot Packs Next Visit Focus/Plan Next Note Type Treatment Note Next Visit Plan Joint mobilizations, capsular stretching, LE strengthening
--- NOTE | 2022-04-26 11:18 | PT.OTN ---
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 (04/26/22) Pain in right hip (04/26/22) Weakness (04/26/22) Physical Therapy Treatment Note PT-OP-A Visit Information Start: 04/19/22 16:44 Freq: Status: Active Protocol: Document 04/26/22 10:30 DCW (Rec: 04/26/22 11:18 DCW [id number]) Out-Patient Physical Therapy Visit Information Visit Information Visit Type Treatment Note Visit Start Time 10:30 Visit Stop Time 11:15 Total Visit Minutes 45 Visit Number 3 Number of CORPORATE STAFF ACCOUNTANT Visits 0 Evaluation Information Evaluation Date 04/19/22 PT-OP-B Current Condition Start: 04/19/22 16:44 Freq: Status: Active Protocol: Document 04/19/22 09:00 DCW (Rec: 04/19/22 17:09 DCW [id number]) Current Condition History of Current Condition Onset Date One year history Current Complaints Left hip weakness, numbness History of Current Condition Pt is a 71 year old female presenting with a one year history of insidious onset of left hip weakness and numbness . Pt reports she just work up , and it felt really weird. Numbness largely in anterior thigh. Describes weakness with adduction and flexion activities. Was receiving acupuncture to help with these complaints, when cell attendant helper noticed a small mass on her posterior left hip . 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 Approximately two weeks ago, pt had mass removed. Pt reports she has received pathology report, unable to remember what it says, and report does not appear to be present in the IH system. Unclear at this time if mass was causing her subjective complaints, but pt does feel there has been some slight improvement with her numbness over the past two weeks. Continues to feel weakness with ascending/ descending stairs, as well as trying to get up and start moving quickly. Left thigh appears to have some mild, yet visible, atrophy vs right thigh. Does note that at one point, maybe about a year ago, she was skiing, and her left leg got away from her, and ended up in a pretty severe hip abduction stretch, pt unsure if this had any effect on her current symptoms. Treatment Goals Patient/Caregiver Goals Improve weakness and sensory disturbances PT-OP-C Subjective Start: 04/19/22 16:44 Freq: Status: Active Protocol: Document 04/26/22 10:30 DCW (Rec: 04/26/22 11:18 DCW [id number]) OP-PT Subjective Patient Comments Patient Comments I think this is working, I'm feeling better. PT-OP-F Manual Assessment Start: 04/19/22 16:44 Freq: Status: Active Protocol: Document 04/19/22 09:00 DCW (Rec: 04/19/22 17:09 DCW [id number]) Manual Assessments Joint Mobility Assessment Joint Mobility Assessment Pt reports sensation of sharp pinching in anterior hip with passive hip flexion and horizontal adduction with therapist providing over- pressure. PT-OP-J Posture/Palpation/Skin Start: 04/19/22 17:09 Freq: Status: Active Protocol: Document 04/19/22 09:00 DCW (Rec: 04/19/22 17:11 DCW [id number]) Skin Assessment Circumference Measurement Left thigh Location 15 cm superior to patella Measurement (Centimeters) 39.1 Comments R=40.8 cm PT-OP-L Special Tests Start: 04/19/22 16:44 Freq: Status: Active Protocol: Document 04/19/22 09:00 DCW (Rec: 04/19/22 17:09 DCW [id number]) Special Tests Hip Special Tests Scour Test Test Results Negative Piriformis Test Results Pinching in anterior left hip JOAN Test Results Pt very resistant, unable to allow therapist to position PT-OP-M Strength Start: 04/19/22 16:44 Freq: Status: Active Protocol: Document 04/19/22 09:00 DCW (Rec: 04/19/22 17:09 DCW [id number]) Hip Strength Hip Manual Muscle Testing Right Flexion (L2) 4+ Good+ Extension (S1) 4+ Good+ Abduction 4+ Good+ Adduction 4+ Good+ External Rotation 4+ Good+ Internal Rotation 4+ Good+ Left Flexion (L2) 4- Good- Extension (S1) 4+ Good+ Abduction 4+ Good+ Adduction 4- Good- External Rotation 4+ Good+ Internal Rotation 4+ Good+ PT-OP-Q Treatments Start: 04/19/22 16:44 Freq: Status: Active Protocol: Document 04/26/22 10:30 DCW (Rec: 04/26/22 11:18 DCW [id number]) Gym Equipment Shuttle Recovery Unilateral Squats Resistance 37# (1 new band) Shuttle Recovery Platform Stable Bilateral Squats Resistance 62# (2 new bands) Shuttle Recovery Platform Stable Therapeutic Exercises Supine Exercises Hip flexor stretch Supine Exercise Name Leg off table Side left Standing Exercises Extension Standing Exercise Name Hip Extension Side bilateral Resistance Red Abduction Standing Exercise Name Hip Abduction Side bilateral Resistance Red Other Exercises BOSU Lunge Other Exercise Name BOSU Lunge Side bilateral Step-ups Other Exercise Name Step-ups/downs Side left Equipment Used 6 step Manual Therapy Treatment Joint Mobilizations Acetabular Joint L hip /c strap - short axis Direction Lateral Grade III Body Position Hooklying PT-OP-T Assessment and Plan Start: 04/19/22 16:44 Freq: Status: Active Protocol: Document 04/26/22 10:30 DCW (Rec: 04/26/22 11:18 DCW [id number]) Physical Therapy Assessment Impairments Impairments Activity Tolerance,Functional Activities,Functional Mobility ,Pain,ROM,Strength Goals Two Impairment Anterior hip pinching with hip horizontal adduction Advisor Advocate Angel Co Founder Goal (LTG) Pt to demonstrate proper left piriformis stretch without any anterior hip pinching or sharp pain LTG Duration 06/17/22 One Impairment Pt does not have an appropriate home exercise program Short Term Goal (STG) Pt to be independent and compliant with an appropriate HEP STG Duration 05/20/22 Assessment Summary Assessment Pt progressing well, reports improvement of decreased sensation in thigh, no longer experiencing pinching sensation in area of anterior hip capsule. Physical Therapy Plan Frequency and Duration Frequency of Treatment 1-2x/week Plan of Care Start Date 04/19/22 Plan of Care End Date 06/17/22 Therapeutic Interventions Therapeutic Interventions Gait Training,Joint Mobilizations,Manual Therapy, Neuromuscular Re-education, Patient/Caregiver Education, Self-Care/Home Management,Soft Tissue Mobilization, Therapeutic Activities, Therapeutic Exercises Modalities Cold Pack/Ice Massage,Hot Packs Next Visit Focus/Plan Next Note Type Treatment Note Next Visit Plan Joint mobilizations, capsular stretching, LE strengthening
--- NOTE | 2022-04-30 10:33 | PT.OTN ---
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 (04/30/22) Pain in right hip (04/30/22) Weakness (04/30/22) Physical Therapy Treatment Note PT-OP-A Visit Information Start: 04/19/22 16:44 Freq: Status: Active Protocol: Document 04/30/22 09:45 DCW (Rec: 04/30/22 10:33 DCW [id number]) Out-Patient Physical Therapy Visit Information Visit Information Visit Type Treatment Note Visit Start Time 09:45 Visit Stop Time 10:30 Total Visit Minutes 45 Visit Number 4 Number of AND TAXI INSTRUCTOR BUS TROLLEY Visits 0 Evaluation Information Evaluation Date 04/19/22 PT-OP-B Current Condition Start: 04/19/22 16:44 Freq: Status: Active Protocol: Document 04/19/22 09:00 DCW (Rec: 04/19/22 17:09 DCW [id number]) Current Condition History of Current Condition Onset Date One year history Current Complaints Left hip weakness, numbness History of Current Condition Pt is a 71 year old female presenting with a one year history of insidious onset of left hip weakness and numbness . Pt reports she just work up , and it felt really weird. Numbness largely in anterior thigh. Describes weakness with adduction and flexion activities. Was receiving acupuncture to help with these complaints, when security delivery specialist noticed a small mass on her posterior left hip . 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 Approximately two weeks ago, pt had mass removed. Pt reports she has received pathology report, unable to remember what it says, and report does not appear to be present in the IH system. Unclear at this time if mass was causing her subjective complaints, but pt does feel there has been some slight improvement with her numbness over the past two weeks. Continues to feel weakness with ascending/ descending stairs, as well as trying to get up and start moving quickly. Left thigh appears to have some mild, yet visible, atrophy vs right thigh. Does note that at one point, maybe about a year ago, she was skiing, and her left leg got away from her, and ended up in a pretty severe hip abduction stretch, pt unsure if this had any effect on her current symptoms. Treatment Goals Patient/Caregiver Goals Improve weakness and sensory disturbances PT-OP-C Subjective Start: 04/19/22 16:44 Freq: Status: Active Protocol: Document 04/30/22 09:45 DCW (Rec: 04/30/22 10:33 DCW [id number]) OP-PT Subjective Patient Comments Patient Comments It's feeling pretty good this morning. PT-OP-F Manual Assessment Start: 04/19/22 16:44 Freq: Status: Active Protocol: Document 04/19/22 09:00 DCW (Rec: 04/19/22 17:09 DCW [id number]) Manual Assessments Joint Mobility Assessment Joint Mobility Assessment Pt reports sensation of sharp pinching in anterior hip with passive hip flexion and horizontal adduction with therapist providing over- pressure. PT-OP-J Posture/Palpation/Skin Start: 04/19/22 17:09 Freq: Status: Active Protocol: Document 04/19/22 09:00 DCW (Rec: 04/19/22 17:11 DCW [id number]) Skin Assessment Circumference Measurement Left thigh Location 15 cm superior to patella Measurement (Centimeters) 39.1 Comments R=40.8 cm PT-OP-L Special Tests Start: 04/19/22 16:44 Freq: Status: Active Protocol: Document 04/19/22 09:00 DCW (Rec: 04/19/22 17:09 DCW [id number]) Special Tests Hip Special Tests Scour Test Test Results Negative Piriformis Test Results Pinching in anterior left hip JOAN Test Results Pt very resistant, unable to allow therapist to position PT-OP-M Strength Start: 04/19/22 16:44 Freq: Status: Active Protocol: Document 04/19/22 09:00 DCW (Rec: 04/19/22 17:09 DCW [id number]) Hip Strength Hip Manual Muscle Testing Right Flexion (L2) 4+ Good+ Extension (S1) 4+ Good+ Abduction 4+ Good+ Adduction 4+ Good+ External Rotation 4+ Good+ Internal Rotation 4+ Good+ Left Flexion (L2) 4- Good- Extension (S1) 4+ Good+ Abduction 4+ Good+ Adduction 4- Good- External Rotation 4+ Good+ Internal Rotation 4+ Good+ PT-OP-Q Treatments Start: 04/19/22 16:44 Freq: Status: Active Protocol: Document 04/30/22 09:45 DCW (Rec: 04/30/22 10:33 DCW [id number]) Gym Equipment Shuttle Recovery Unilateral Squats Resistance 37# (1 new band) Shuttle Recovery Platform Stable Bilateral Squats Resistance 75# (2 new bands) Shuttle Recovery Platform Stable Therapeutic Exercises Sidelying Exercises Psoas Stretch Sidelying Exercise Name Maunal hip flexor stretch - hip into extension Standing Exercises Extension Standing Exercise Name Hip Extension Side bilateral Resistance Red Abduction Standing Exercise Name Hip Abduction Side bilateral Resistance Red Other Exercises BOSU Lunge Other Exercise Name BOSU Lunge Side bilateral Step-ups Other Exercise Name Step-ups/downs Side left Equipment Used 6 step Manual Therapy Treatment Joint Mobilizations Acetabular Joint L hip /c strap - short axis Direction Lateral Grade III Body Position Hooklying PT-OP-T Assessment and Plan Start: 04/19/22 16:44 Freq: Status: Active Protocol: Document 04/30/22 09:45 DCW (Rec: 04/30/22 10:33 DCW [id number]) Physical Therapy Assessment Impairments Impairments Activity Tolerance,Functional Activities,Functional Mobility ,Pain,ROM,Strength Goals Two Impairment Anterior hip pinching with hip horizontal adduction Surveyor Mine Goal (LTG) Pt to demonstrate proper left piriformis stretch without any anterior hip pinching or sharp pain LTG Duration 06/17/22 One Impairment Pt does not have an appropriate home exercise program Short Term Goal (STG) Pt to be independent and compliant with an appropriate HEP STG Duration 05/20/22 Assessment Summary Assessment Pt continues to make good progress, responding well to capsular and hip flexor stretching. Still showing increased weakness and fatigability in left hip vs right, but lessened intensity and frequency of pain overall. Physical Therapy Plan Frequency and Duration Frequency of Treatment 1-2x/week Plan of Care Start Date 04/19/22 Plan of Care End Date 06/17/22 Therapeutic Interventions Therapeutic Interventions Gait Training,Joint Mobilizations,Manual Therapy, Neuromuscular Re-education, Patient/Caregiver Education, Self-Care/Home Management,Soft Tissue Mobilization, Therapeutic Activities, Therapeutic Exercises Modalities Cold Pack/Ice Massage,Hot Packs Next Visit Focus/Plan Next Note Type Treatment Note Next Visit Plan Joint mobilizations, capsular stretching, LE strengthening
--- NOTE | 2022-05-03 09:46 | PT.OTN ---
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 (05/03/22) Pain in right hip (05/03/22) Weakness (05/03/22) Physical Therapy Treatment Note PT-OP-A Visit Information Start: 04/19/22 16:44 Freq: Status: Active Protocol: Document 05/03/22 09:00 DCW (Rec: 05/03/22 09:46 DCW [id number]) Out-Patient Physical Therapy Visit Information Visit Information Visit Type Treatment Note Visit Start Time 09:00 Visit Stop Time 09:45 Total Visit Minutes 45 Visit Number 5 Number of SUPPLY CHAIN DIRECTOR Visits 0 Evaluation Information Evaluation Date 04/19/22 PT-OP-B Current Condition Start: 04/19/22 16:44 Freq: Status: Active Protocol: Document 04/19/22 09:00 DCW (Rec: 04/19/22 17:09 DCW [id number]) Current Condition History of Current Condition Onset Date One year history Current Complaints Left hip weakness, numbness History of Current Condition Pt is a 71 year old female presenting with a one year history of insidious onset of left hip weakness and numbness . Pt reports she just work up , and it felt really weird. Numbness largely in anterior thigh. Describes weakness with adduction and flexion activities. Was receiving acupuncture to help with these complaints, when employee relations specialist noticed a small mass on her posterior left hip . 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 Approximately two weeks ago, pt had mass removed. Pt reports she has received pathology report, unable to remember what it says, and report does not appear to be present in the IH system. Unclear at this time if mass was causing her subjective complaints, but pt does feel there has been some slight improvement with her numbness over the past two weeks. Continues to feel weakness with ascending/ descending stairs, as well as trying to get up and start moving quickly. Left thigh appears to have some mild, yet visible, atrophy vs right thigh. Does note that at one point, maybe about a year ago, she was skiing, and her left leg got away from her, and ended up in a pretty severe hip abduction stretch, pt unsure if this had any effect on her current symptoms. Treatment Goals Patient/Caregiver Goals Improve weakness and sensory disturbances PT-OP-C Subjective Start: 04/19/22 16:44 Freq: Status: Active Protocol: Document 05/03/22 09:00 DCW (Rec: 05/03/22 09:46 DCW [id number]) OP-PT Subjective Patient Comments Patient Comments I feel like it's improving. It will feel great, and then every now and then it bothers me a bit. PT-OP-F Manual Assessment Start: 04/19/22 16:44 Freq: Status: Active Protocol: Document 04/19/22 09:00 DCW (Rec: 04/19/22 17:09 DCW [id number]) Manual Assessments Joint Mobility Assessment Joint Mobility Assessment Pt reports sensation of sharp pinching in anterior hip with passive hip flexion and horizontal adduction with therapist providing over- pressure. PT-OP-J Posture/Palpation/Skin Start: 04/19/22 17:09 Freq: Status: Active Protocol: Document 04/19/22 09:00 DCW (Rec: 04/19/22 17:11 DCW [id number]) Skin Assessment Circumference Measurement Left thigh Location 15 cm superior to patella Measurement (Centimeters) 39.1 Comments R=40.8 cm PT-OP-L Special Tests Start: 04/19/22 16:44 Freq: Status: Active Protocol: Document 04/19/22 09:00 DCW (Rec: 04/19/22 17:09 DCW [id number]) Special Tests Hip Special Tests Scour Test Test Results Negative Piriformis Test Results Pinching in anterior left hip JOAN Test Results Pt very resistant, unable to allow therapist to position PT-OP-M Strength Start: 04/19/22 16:44 Freq: Status: Active Protocol: Document 04/19/22 09:00 DCW (Rec: 04/19/22 17:09 DCW [id number]) Hip Strength Hip Manual Muscle Testing Right Flexion (L2) 4+ Good+ Extension (S1) 4+ Good+ Abduction 4+ Good+ Adduction 4+ Good+ External Rotation 4+ Good+ Internal Rotation 4+ Good+ Left Flexion (L2) 4- Good- Extension (S1) 4+ Good+ Abduction 4+ Good+ Adduction 4- Good- External Rotation 4+ Good+ Internal Rotation 4+ Good+ PT-OP-Q Treatments Start: 04/19/22 16:44 Freq: Status: Active Protocol: Document 05/03/22 09:00 DCW (Rec: 05/03/22 09:46 DCW [id number]) Therapeutic Exercises Supine Exercises Piriformis Stretch Supine Exercise Name Knee to opposite shoulder Side left Hamstring Stretch Supine Exercise Name HS stretch Side left Sidelying Exercises Psoas Stretch Sidelying Exercise Name Maunal hip flexor stretch - hip into extension Standing Exercises Extension Standing Exercise Name Hip Extension Side bilateral Resistance Red Abduction Standing Exercise Name Hip Abduction Side bilateral Resistance Red Other Exercises BOSU Lunge Other Exercise Name BOSU Lunge Side bilateral Manual Therapy Treatment Joint Mobilizations Acetabular Joint L hip /c strap - short axis Direction Lateral Grade III Body Position Hooklying Neuro Re-Education Treatment Balance Activities Tandem Stance Details Tandem Stance SLS Details SLS Surface Blue Foam PT-OP-T Assessment and Plan Start: 04/19/22 16:44 Freq: Status: Active Protocol: Document 05/03/22 09:00 DCW (Rec: 05/03/22 09:46 DCW [id number]) Physical Therapy Assessment Impairments Impairments Activity Tolerance,Functional Activities,Functional Mobility ,Pain,ROM,Strength Goals Two Impairment Anterior hip pinching with hip horizontal adduction Gasoline Locomotive Crane Operator Goal (LTG) Pt to demonstrate proper left piriformis stretch without any anterior hip pinching or sharp pain LTG Duration 06/17/22 One Impairment Pt does not have an appropriate home exercise program Short Term Goal (STG) Pt to be independent and compliant with an appropriate HEP STG Duration 05/20/22 Assessment Summary Assessment Pt showing good progress so far, significant improvement in both frequency and severity of pain in left hip/leg. Struggled some with stability on new balance challenges. Physical Therapy Plan Frequency and Duration Frequency of Treatment 1-2x/week Plan of Care Start Date 04/19/22 Plan of Care End Date 06/17/22 Therapeutic Interventions Therapeutic Interventions Gait Training,Joint Mobilizations,Manual Therapy, Neuromuscular Re-education, Patient/Caregiver Education, Self-Care/Home Management,Soft Tissue Mobilization, Therapeutic Activities, Therapeutic Exercises Modalities Cold Pack/Ice Massage,Hot Packs Next Visit Focus/Plan Next Note Type Treatment Note Next Visit Plan Joint mobilizations, capsular stretching, LE strengthening
--- NOTE | 2022-05-07 10:30 | PT.OTN ---
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 (05/07/22) Pain in right hip (05/07/22) Weakness (05/07/22) Physical Therapy Treatment Note PT-OP-A Visit Information Start: 04/19/22 16:44 Freq: Status: Active Protocol: Document 05/07/22 09:48 DCW (Rec: 05/07/22 10:30 DCW [id number]) Out-Patient Physical Therapy Visit Information Visit Information Visit Type Treatment Note Visit Start Time 09:48 Visit Stop Time 10:30 Total Visit Minutes 43 Visit Number 6 Number of HEEL BREASTER Visits 0 Evaluation Information Evaluation Date 04/19/22 PT-OP-B Current Condition Start: 04/19/22 16:44 Freq: Status: Active Protocol: Document 04/19/22 09:00 DCW (Rec: 04/19/22 17:09 DCW [id number]) Current Condition History of Current Condition Onset Date One year history Current Complaints Left hip weakness, numbness History of Current Condition Pt is a 71 year old female presenting with a one year history of insidious onset of left hip weakness and numbness . Pt reports she just work up , and it felt really weird. Numbness largely in anterior thigh. Describes weakness with adduction and flexion activities. Was receiving acupuncture to help with these complaints, when correctional facility psychiatrist noticed a small mass on her posterior left hip . 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 Approximately two weeks ago, pt had mass removed. Pt reports she has received pathology report, unable to remember what it says, and report does not appear to be present in the IH system. Unclear at this time if mass was causing her subjective complaints, but pt does feel there has been some slight improvement with her numbness over the past two weeks. Continues to feel weakness with ascending/ descending stairs, as well as trying to get up and start moving quickly. Left thigh appears to have some mild, yet visible, atrophy vs right thigh. Does note that at one point, maybe about a year ago, she was skiing, and her left leg got away from her, and ended up in a pretty severe hip abduction stretch, pt unsure if this had any effect on her current symptoms. Treatment Goals Patient/Caregiver Goals Improve weakness and sensory disturbances PT-OP-C Subjective Start: 04/19/22 16:44 Freq: Status: Active Protocol: Document 05/07/22 09:48 DCW (Rec: 05/07/22 10:30 DCW [id number]) OP-PT Subjective Patient Comments Patient Comments It is feeling great today, but last night it was killing me. PT-OP-F Manual Assessment Start: 04/19/22 16:44 Freq: Status: Active Protocol: Document 04/19/22 09:00 DCW (Rec: 04/19/22 17:09 DCW [id number]) Manual Assessments Joint Mobility Assessment Joint Mobility Assessment Pt reports sensation of sharp pinching in anterior hip with passive hip flexion and horizontal adduction with therapist providing over- pressure. PT-OP-J Posture/Palpation/Skin Start: 04/19/22 17:09 Freq: Status: Active Protocol: Document 04/19/22 09:00 DCW (Rec: 04/19/22 17:11 DCW [id number]) Skin Assessment Circumference Measurement Left thigh Location 15 cm superior to patella Measurement (Centimeters) 39.1 Comments R=40.8 cm PT-OP-L Special Tests Start: 04/19/22 16:44 Freq: Status: Active Protocol: Document 04/19/22 09:00 DCW (Rec: 04/19/22 17:09 DCW [id number]) Special Tests Hip Special Tests Scour Test Test Results Negative Piriformis Test Results Pinching in anterior left hip JOAN Test Results Pt very resistant, unable to allow therapist to position PT-OP-M Strength Start: 04/19/22 16:44 Freq: Status: Active Protocol: Document 04/19/22 09:00 DCW (Rec: 04/19/22 17:09 DCW [id number]) Hip Strength Hip Manual Muscle Testing Right Flexion (L2) 4+ Good+ Extension (S1) 4+ Good+ Abduction 4+ Good+ Adduction 4+ Good+ External Rotation 4+ Good+ Internal Rotation 4+ Good+ Left Flexion (L2) 4- Good- Extension (S1) 4+ Good+ Abduction 4+ Good+ Adduction 4- Good- External Rotation 4+ Good+ Internal Rotation 4+ Good+ PT-OP-Q Treatments Start: 04/19/22 16:44 Freq: Status: Active Protocol: Document 05/07/22 09:48 DCW (Rec: 02/14/23 10:30 DCW [id number]) Gym Equipment Shuttle Recovery Unilateral Squats Resistance 37# (1 new band) Shuttle Recovery Platform Stable Therapeutic Exercises Supine Exercises Piriformis Stretch Supine Exercise Name Knee to opposite shoulder Side left Hamstring Stretch Supine Exercise Name HS stretch Side left Sidelying Exercises Psoas Stretch Sidelying Exercise Name Maunal hip flexor stretch - hip into extension Standing Exercises Extension Standing Exercise Name Hip Extension Side bilateral Resistance Red Abduction Standing Exercise Name Hip Abduction Side bilateral Resistance Red Other Exercises BOSU Lunge Other Exercise Name BOSU Lunge Side bilateral Manual Therapy Treatment Joint Mobilizations Acetabular Joint L hip /c strap - short axis Direction Lateral Grade III Body Position Hooklying Neuro Re-Education Treatment Balance Activities Tandem Stance Details Tandem Stance SLS Details SLS Surface Blue Foam PT-OP-T Assessment and Plan Start: 04/19/22 16:44 Freq: Status: Active Protocol: Document 05/07/22 09:48 DCW (Rec: 05/07/22 10:30 DCW [id number]) Physical Therapy Assessment Impairments Impairments Activity Tolerance,Functional Activities,Functional Mobility ,Pain,ROM,Strength Goals Two Impairment Anterior hip pinching with hip horizontal adduction Half-Way Goal (LTG) Pt to demonstrate proper left piriformis stretch without any anterior hip pinching or sharp pain LTG Duration 06/17/22 One Impairment Pt does not have an appropriate home exercise program Short Term Goal (STG) Pt to be independent and compliant with an appropriate HEP STG Duration 05/20/22 Assessment Summary Assessment Pt still experiencing occasional pain/discomfort in left hip, largely just feeling a general achiness, but overall showing very good progress with mobility and pain levels. Physical Therapy Plan Frequency and Duration Frequency of Treatment 1-2x/week Plan of Care Start Date 04/19/22 Plan of Care End Date 06/17/22 Therapeutic Interventions Therapeutic Interventions Gait Training,Joint Mobilizations,Manual Therapy, Neuromuscular Re-education, Patient/Caregiver Education, Self-Care/Home Management,Soft Tissue Mobilization, Therapeutic Activities, Therapeutic Exercises Modalities Cold Pack/Ice Massage,Hot Packs Next Visit Focus/Plan Next Note Type Treatment Note Next Visit Plan Joint mobilizations, capsular stretching, LE strengthening
--- NOTE | 2022-05-10 09:46 | PT.OTN ---
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 (05/10/22) Pain in right hip (05/10/22) Weakness (05/10/22) Physical Therapy Treatment Note PT-OP-A Visit Information Start: 04/19/22 16:44 Freq: Status: Active Protocol: Document 05/10/22 09:00 DCW (Rec: 05/10/22 09:46 DCW [id number]) Out-Patient Physical Therapy Visit Information Visit Information Visit Type Treatment Note Visit Start Time 09:00 Visit Stop Time 09:45 Total Visit Minutes 45 Visit Number 7 Number of DRILL GRINDER Visits 0 Evaluation Information Evaluation Date 04/19/22 PT-OP-B Current Condition Start: 04/19/22 16:44 Freq: Status: Active Protocol: Document 04/19/22 09:00 DCW (Rec: 04/19/22 17:09 DCW [id number]) Current Condition History of Current Condition Onset Date One year history Current Complaints Left hip weakness, numbness History of Current Condition Pt is a 71 year old female presenting with a one year history of insidious onset of left hip weakness and numbness . Pt reports she just work up , and it felt really weird. Numbness largely in anterior thigh. Describes weakness with adduction and flexion activities. Was receiving acupuncture to help with these complaints, when equip maint eng noticed a small mass on her posterior left hip . 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 Approximately two weeks ago, pt had mass removed. Pt reports she has received pathology report, unable to remember what it says, and report does not appear to be present in the IH system. Unclear at this time if mass was causing her subjective complaints, but pt does feel there has been some slight improvement with her numbness over the past two weeks. Continues to feel weakness with ascending/ descending stairs, as well as trying to get up and start moving quickly. Left thigh appears to have some mild, yet visible, atrophy vs right thigh. Does note that at one point, maybe about a year ago, she was skiing, and her left leg got away from her, and ended up in a pretty severe hip abduction stretch, pt unsure if this had any effect on her current symptoms. Treatment Goals Patient/Caregiver Goals Improve weakness and sensory disturbances PT-OP-C Subjective Start: 04/19/22 16:44 Freq: Status: Active Protocol: Document 05/10/22 09:00 DCW (Rec: 05/10/22 09:46 DCW [id number]) OP-PT Subjective Patient Comments Patient Comments I'm good today. I was not good on Friday. It was just weak and hurting. PT-OP-F Manual Assessment Start: 04/19/22 16:44 Freq: Status: Active Protocol: Document 04/19/22 09:00 DCW (Rec: 04/19/22 17:09 DCW [id number]) Manual Assessments Joint Mobility Assessment Joint Mobility Assessment Pt reports sensation of sharp pinching in anterior hip with passive hip flexion and horizontal adduction with therapist providing over- pressure. PT-OP-J Posture/Palpation/Skin Start: 04/19/22 17:09 Freq: Status: Active Protocol: Document 04/19/22 09:00 DCW (Rec: 04/19/22 17:11 DCW [id number]) Skin Assessment Circumference Measurement Left thigh Location 15 cm superior to patella Measurement (Centimeters) 39.1 Comments R=40.8 cm PT-OP-L Special Tests Start: 04/19/22 16:44 Freq: Status: Active Protocol: Document 04/19/22 09:00 DCW (Rec: 04/19/22 17:09 DCW [id number]) Special Tests Hip Special Tests Scour Test Test Results Negative Piriformis Test Results Pinching in anterior left hip JOAN Test Results Pt very resistant, unable to allow therapist to position PT-OP-M Strength Start: 04/19/22 16:44 Freq: Status: Active Protocol: Document 04/19/22 09:00 DCW (Rec: 04/19/22 17:09 DCW [id number]) Hip Strength Hip Manual Muscle Testing Right Flexion (L2) 4+ Good+ Extension (S1) 4+ Good+ Abduction 4+ Good+ Adduction 4+ Good+ External Rotation 4+ Good+ Internal Rotation 4+ Good+ Left Flexion (L2) 4- Good- Extension (S1) 4+ Good+ Abduction 4+ Good+ Adduction 4- Good- External Rotation 4+ Good+ Internal Rotation 4+ Good+ PT-OP-Q Treatments Start: 04/19/22 16:44 Freq: Status: Active Protocol: Document 05/10/22 09:00 DCW (Rec: 05/10/22 09:46 [facility] [id number]) Therapeutic Exercises Sidelying Exercises Psoas Stretch Sidelying Exercise Name Maunal hip flexor stretch - hip into extension Standing Exercises Extension Standing Exercise Name Hip Extension Side bilateral Resistance Red Abduction Standing Exercise Name Hip Abduction Side bilateral Resistance Red Other Exercises BOSU Lunge Other Exercise Name BOSU Lunge Side bilateral Manual Therapy Treatment Joint Mobilizations Acetabular Joint L hip /c strap - short axis Direction Lateral Grade III Body Position Hooklying Neuro Re-Education Treatment Balance Activities Tandem Stance Details Tandem Stance PT-OP-T Assessment and Plan Start: 04/19/22 16:44 Freq: Status: Active Protocol: Document 05/10/22 09:00 [facility] (Rec: 05/10/22 09:46 [facility] [id number]) Physical Therapy Assessment Impairments Impairments Activity Tolerance,Functional Activities,Functional Mobility ,Pain,ROM,Strength Goals Two Impairment Anterior hip pinching with hip horizontal adduction Penitentiary Goal (LTG) Pt to demonstrate proper left piriformis stretch without any anterior hip pinching or sharp pain LTG Duration 06/17/22 One Impairment Pt does not have an appropriate home exercise program Short Term Goal (STG) Pt to be independent and compliant with an appropriate HEP STG Duration 05/20/22 Assessment Summary Assessment Pt showing limited abduction passively, no noted pain associated with limited ROM, may benefit from imaging to get a better idea of internal structure of her hip. Otherwise showing good improvement with hip pain and functional mobility. Physical Therapy Plan Frequency and Duration Frequency of Treatment 1-2x/week Plan of Care Start Date 04/19/22 Plan of Care End Date 06/17/22 Therapeutic Interventions Therapeutic Interventions Gait Training,Joint Mobilizations,Manual Therapy, Neuromuscular Re-education, Patient/Caregiver Education, Self-Care/Home Management,Soft Tissue Mobilization, Therapeutic Activities, Therapeutic Exercises Modalities Cold Pack/Ice Massage,Hot Packs Next Visit Focus/Plan Next Note Type Treatment Note Next Visit Plan Joint mobilizations, capsular stretching, LE strengthening
--- NOTE | 2022-05-20 15:16 | PT.OTN ---
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 (05/20/22) Pain in right hip (05/20/22) Weakness (05/20/22) Physical Therapy Treatment Note PT-OP-A Visit Information Start: 04/19/22 16:44 Freq: Status: Active Protocol: Document 05/20/22 14:30 DCW (Rec: 05/20/22 15:16 DCW [id number]) Out-Patient Physical Therapy Visit Information Visit Information Visit Type Treatment Note Visit Start Time 14:30 Visit Stop Time 15:15 Total Visit Minutes 45 Visit Number 8 Number of FEED HOUSE SUPERVISOR Visits 0 Evaluation Information Evaluation Date 04/19/22 PT-OP-B Current Condition Start: 04/19/22 16:44 Freq: Status: Active Protocol: Document 04/19/22 09:00 DCW (Rec: 04/19/22 17:09 DCW [id number]) Current Condition History of Current Condition Onset Date One year history Current Complaints Left hip weakness, numbness History of Current Condition Pt is a 71 year old female presenting with a one year history of insidious onset of left hip weakness and numbness . Pt reports she just work up , and it felt really weird. Numbness largely in anterior thigh. Describes weakness with adduction and flexion activities. 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 Approximately two weeks ago, pt had mass removed. Pt reports she has received pathology report, unable to remember what it says, and report does not appear to be present in the IH system. Unclear at this time if mass was causing her subjective complaints, but pt does feel there has been some slight improvement with her numbness over the past two weeks. Continues to feel weakness with ascending/ descending stairs, as well as trying to get up and start moving quickly. Left thigh appears to have some mild, yet visible, atrophy vs right thigh. Does note that at one point, maybe about a year ago, she was skiing, and her left leg got away from her, and ended up in a pretty severe hip abduction stretch, pt unsure if this had any effect on her current symptoms. Treatment Goals Patient/Caregiver Goals Improve weakness and sensory disturbances PT-OP-C Subjective Start: 04/19/22 16:44 Freq: Status: Active Protocol: Document 05/20/22 14:30 DCW (Rec: 05/20/22 15:16 DCW [id number]) OP-PT Subjective Patient Comments Patient Comments I've been pretty good this week. Notes she had an x-ray last week, which shows severe degenerative changes in left hip PT-OP-F Manual Assessment Start: 04/19/22 16:44 Freq: Status: Active Protocol: Document 04/19/22 09:00 DCW (Rec: 04/19/22 17:09 DCW [id number]) Manual Assessments Joint Mobility Assessment Joint Mobility Assessment Pt reports sensation of sharp pinching in anterior hip with passive hip flexion and horizontal adduction with therapist providing over- pressure. PT-OP-J Posture/Palpation/Skin Start: 04/19/22 17:09 Freq: Status: Active Protocol: Document 04/19/22 09:00 DCW (Rec: 04/19/22 17:11 DCW [id number]) Skin Assessment Circumference Measurement Left thigh Location 15 cm superior to patella Measurement (Centimeters) 39.1 Comments R=40.8 cm PT-OP-L Special Tests Start: 04/19/22 16:44 Freq: Status: Active Protocol: Document 04/19/22 09:00 DCW (Rec: 04/19/22 17:09 DCW [id number]) Special Tests Hip Special Tests Scour Test Test Results Negative Piriformis Test Results Pinching in anterior left hip JOAN Test Results Pt very resistant, unable to allow therapist to position PT-OP-M Strength Start: 04/19/22 16:44 Freq: Status: Active Protocol: Document 04/19/22 09:00 DCW (Rec: 04/19/22 17:09 DCW [id number]) Hip Strength Hip Manual Muscle Testing Right Flexion (L2) 4+ Good+ Extension (S1) 4+ Good+ Abduction 4+ Good+ Adduction 4+ Good+ External Rotation 4+ Good+ Internal Rotation 4+ Good+ Left Flexion (L2) 4- Good- Extension (S1) 4+ Good+ Abduction 4+ Good+ Adduction 4- Good- External Rotation 4+ Good+ Internal Rotation 4+ Good+ PT-OP-Q Treatments Start: 04/19/22 16:44 Freq: Status: Active Protocol: Document 05/20/22 14:30 DCW (Rec: 05/20/22 15:16 DCW [id number]) Gym Equipment Shuttle Recovery Unilateral Squats Resistance 37# (1 new band) Shuttle Recovery Platform Stable Therapeutic Exercises Supine Exercises Piriformis Stretch Supine Exercise Name Knee to opposite shoulder Side left Hamstring Stretch Supine Exercise Name HS stretch Side left Sidelying Exercises Psoas Stretch Sidelying Exercise Name Maunal hip flexor stretch - hip into extension Standing Exercises Extension Standing Exercise Name Hip Extension Side bilateral Resistance Green Abduction Standing Exercise Name Hip Abduction Side bilateral Resistance Green Other Exercises BOSU Lunge Other Exercise Name BOSU Lunge Side bilateral Step-ups Other Exercise Name Step-ups/downs Side bilateral Equipment Used 6->8 step Manual Therapy Treatment Joint Mobilizations Acetabular Joint L hip /c strap - short axis Direction Lateral Grade III Body Position Hooklying Neuro Re-Education Treatment Balance Activities Tandem Stance Details Tandem Stance SLS Details SLS Surface Blue Foam PT-OP-T Assessment and Plan Start: 04/19/22 16:44 Freq: Status: Active Protocol: Document 05/20/22 14:30 DCW (Rec: 05/20/22 15:16 DCW [id number]) Physical Therapy Assessment Impairments Impairments Activity Tolerance,Functional Activities,Functional Mobility ,Pain,ROM,Strength Goals Two Impairment Anterior hip pinching with hip horizontal adduction Senior Care Goal (LTG) Pt to demonstrate proper left piriformis stretch without any anterior hip pinching or sharp pain LTG Duration 06/17/22 One Impairment Pt does not have an appropriate home exercise program Short Term Goal (STG) Pt to be independent and compliant with an appropriate HEP STG Duration 05/20/22 Assessment Summary Assessment Pt feeling much better overall , not experiencing much pain or discomfort with activity during today's session, although pt did note some increased right knee pain, however it was not limiting. Physical Therapy Plan Frequency and Duration Frequency of Treatment 1-2x/week Plan of Care Start Date 04/19/22 Plan of Care End Date 06/17/22 Therapeutic Interventions Therapeutic Interventions Gait Training,Joint Mobilizations,Manual Therapy, Neuromuscular Re-education, Patient/Caregiver Education, Self-Care/Home Management,Soft Tissue Mobilization, Therapeutic Activities, Therapeutic Exercises Modalities Cold Pack/Ice Massage,Hot Packs Next Visit Focus/Plan Next Note Type Treatment Note Next Visit Plan Joint mobilizations, capsular stretching, LE strengthening
--- NOTE | 2022-06-13 17:38 | PT.OTN ---
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 (06/13/22) Pain in right hip (06/13/22) Weakness (06/13/22) Physical Therapy Treatment Note PT-OP-A Visit Information Start: 04/19/22 16:44 Freq: Status: Active Protocol: Document 06/13/22 16:45 DCW (Rec: 06/13/22 17:38 DCW [id number]) Out-Patient Physical Therapy Visit Information Visit Information Visit Type Progress Note Visit Start Time 16:45 Visit Stop Time 17:30 Total Visit Minutes 45 Visit Number 9 Number of CUSTOMER QUALITY ENGINEER Visits 0 Evaluation Information Evaluation Date 04/19/22 PT-OP-B Current Condition Start: 04/19/22 16:44 Freq: Status: Active Protocol: Document 04/19/22 09:00 DCW (Rec: 04/19/22 17:09 DCW [id number]) Current Condition History of Current Condition Onset Date One year history Current Complaints Left hip weakness, numbness History of Current Condition Pt is a 71 year old female presenting with a one year history of insidious onset of left hip weakness and numbness . Pt reports she just work up , and it felt really weird. Numbness largely in anterior thigh. Describes weakness with adduction and flexion activities. 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 Approximately two weeks ago, pt had mass removed. Pt reports she has received pathology report, unable to remember what it says, and report does not appear to be present in the IH system. Unclear at this time if mass was causing her subjective complaints, but pt does feel there has been some slight improvement with her numbness over the past two weeks. Continues to feel weakness with ascending/ descending stairs, as well as trying to get up and start moving quickly. Left thigh appears to have some mild, yet visible, atrophy vs right thigh. Does note that at one point, maybe about a year ago, she was skiing, and her left leg got away from her, and ended up in a pretty severe hip abduction stretch, pt unsure if this had any effect on her current symptoms. Treatment Goals Patient/Caregiver Goals Improve weakness and sensory disturbances PT-OP-C Subjective Start: 04/19/22 16:44 Freq: Status: Active Protocol: Document 06/13/22 16:45 DCW (Rec: 06/13/22 17:38 DCW [id number]) OP-PT Subjective Patient Comments Patient Comments Pt comes in today reporting that she had an appointment with Dr Willard since her last visit here, and decided that she would benefit from a TOYA. PT-OP-F Manual Assessment Start: 04/19/22 16:44 Freq: Status: Active Protocol: Document 06/13/22 16:45 DCW (Rec: 06/13/22 17:24 DCW [id number]) Manual Assessments Joint Mobility Assessment Joint Mobility Assessment Pt reports dull tightness in anteriolateral hip with passive hip flexion with therapist providing over- pressure. PT-OP-J Posture/Palpation/Skin Start: 04/19/22 17:09 Freq: Status: Active Protocol: Document 04/19/22 09:00 DCW (Rec: 04/19/22 17:11 DCW [id number]) Skin Assessment Circumference Measurement Left thigh Location 15 cm superior to patella Measurement (Centimeters) 39.1 Comments R=40.8 cm PT-OP-L Special Tests Start: 04/19/22 16:44 Freq: Status: Active Protocol: Document 06/13/22 16:45 DCW (Rec: 06/13/22 17:24 DCW [id number]) Special Tests Hip Special Tests Traction Test Results Long-axis traction results in pain relief Straight Leg Raise Test Results Negative Piriformis Test Results Tightness in anterior hip JOAN Test Results Tightness in anterior hip PT-OP-M Strength Start: 04/19/22 16:44 Freq: Status: Active Protocol: Document 06/13/22 16:45 DCW (Rec: 06/13/22 17:24 DCW [id number]) Hip Strength Hip Manual Muscle Testing Right Flexion (L2) 4+ Good+ Extension (S1) 4+ Good+ Abduction 4+ Good+ Adduction 4+ Good+ External Rotation 4+ Good+ Internal Rotation 4+ Good+ Left Flexion (L2) 4- Good- Extension (S1) 4+ Good+ Abduction 4+ Good+ Adduction 4 Good External Rotation 4+ Good+ Internal Rotation 4+ Good+ PT-OP-Q Treatments Start: 04/19/22 16:44 Freq: Status: Active Protocol: Document 06/13/22 16:45 DCW (Rec: 06/13/22 17:38 DC [id number]) Manual Therapy Treatment Joint Mobilizations Acetabular Joint L hip /c strap - short axis Direction Lateral Grade III Body Position Hooklying Self-Care/Home Management Treatment Education Other Education Discussed pt's questions and concerns regarding TOYA, as well as likely therapy expectations. PT-OP-T Assessment and Plan Start: 04/19/22 16:44 Freq: Status: Active Protocol: Document 06/13/22 16:45 DCW (Rec: 06/13/22 17:38 DCW [id number]) Physical Therapy Assessment Impairments Impairments Activity Tolerance,Functional Activities,Functional Mobility ,Pain,ROM,Strength Goals Two Impairment Anterior hip pinching with hip horizontal adduction Mexican Food Maker Hand Goal (LTG) Pt to demonstrate proper left piriformis stretch without any anterior hip pinching or sharp pain LTG Duration 07/14/22 - Improving One Impairment Pt does not have an appropriate home exercise program Short Term Goal (STG) Pt to be independent and compliant with an appropriate HEP STG Duration Met Assessment Summary Assessment Pt is simultaneously improving in some areas and declining in others. overall mobility of hip limited by degenerative changes, however pt is experiencing much less sharp pain when walking and with hip flexion. Will benefit from continued therapy for improving hip strength and mobility, both for continued improvement following removal of mass from hip, and in preparation of potential TOYA. Physical Therapy Plan Frequency and Duration Frequency of Treatment 1-2x/week Plan of Care Start Date 06/13/22 Plan of Care End Date 07/14/22 Therapeutic Interventions Therapeutic Interventions Gait Training,Joint Mobilizations,Manual Therapy, Neuromuscular Re-education, Patient/Caregiver Education, Self-Care/Home Management,Soft Tissue Mobilization, Therapeutic Activities, Therapeutic Exercises Modalities Cold Pack/Ice Massage,Hot Packs Next Visit Focus/Plan Next Note Type Treatment Note Next Visit Plan Joint mobilizations, capsular stretching, LE strengthening
--- NOTE | 2022-06-13 17:40 | PT.OPPOC ---
Physical, Occupational & Speech Therapy At 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 (06/13/22) Pain in right hip (06/13/22) Weakness (06/13/22) Visit Care Team Role Provider Type EULALIO Viramontes Attending Provider Advanced Laser Specialist Family Provider Primary Care Provider Referring Provider Specialty: Family Practice Address: [address] [place] [address], [facility] [place], [facility] Email: [email or web address] Plan Of Care PT-OP-T Assessment and Plan Start: 04/19/22 16:44 Freq: Status: Active Protocol: Document 06/13/22 16:45 DCW (Rec: 06/13/22 17:38 DCW [id number]) Physical Therapy Assessment Impairments Impairments Activity Tolerance,Functional Activities,Functional Mobility ,Pain,ROM,Strength Goals Two Impairment Anterior hip pinching with hip horizontal adduction Photograph Mounter Goal (LTG) Pt to demonstrate proper left piriformis stretch without any anterior hip pinching or sharp pain LTG Duration 07/14/22 - Improving One Impairment Pt does not have an appropriate home exercise program Short Term Goal (STG) Pt to be independent and compliant with an appropriate HEP STG Duration Met Assessment Summary Assessment Pt is simultaneously improving in some areas and declining in others. overall mobility of hip limited by degenerative changes, however pt is experiencing much less sharp pain when walking and with hip flexion. Will benefit from continued therapy for improving hip strength and mobility, both for continued improvement following removal of mass from hip, and in preparation of potential TOYA. Physical Therapy Plan Frequency and Duration Frequency of Treatment 1-2x/week Plan of Care Start Date 06/13/22 Plan of Care End Date 07/14/22 Therapeutic Interventions Therapeutic Interventions Gait Training,Joint Mobilizations,Manual Therapy, Neuromuscular Re-education, Patient/Caregiver Education, Self-Care/Home Management,Soft Tissue Mobilization, Therapeutic Activities, Therapeutic Exercises Modalities Cold Pack/Ice Massage,Hot Packs Next Visit Focus/Plan Next Note Type Treatment Note Next Visit Plan Joint mobilizations, capsular stretching, LE strengthening Plan of Care Dates Plan of Care Start Date 06/13/22 Plan of Care End Date 07/14/22 Electronically Signed by: Feliz Barlow, PT 06/13/22 5524 If you are in agreement with this Plan of Care, please return a signed and dated copy. I have reviewed this Plan of Care and certify that the skilled therapy services above are required to meet the patient?s needs. Physician Signature Date Printed Name and Credentials Clinical Instructor Signature Printed Name and Credentials
--- NOTE | 2022-06-19 16:45 | PT.OTN ---
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 (06/19/22) Pain in right hip (06/19/22) Weakness (06/19/22) Physical Therapy Treatment Note PT-OP-A Visit Information Start: 04/19/22 16:44 Freq: Status: Active Protocol: Document 06/19/22 16:00 DCW (Rec: 06/19/22 16:45 DCW [id number]) Out-Patient Physical Therapy Visit Information Visit Information Visit Type Treatment Note Visit Start Time 16:00 Visit Stop Time 16:45 Total Visit Minutes 45 Visit Number 10 Number of INSURANCE CLAIM REPRESENTATIVE Visits 0 Evaluation Information Evaluation Date 04/19/22 PT-OP-B Current Condition Start: 04/19/22 16:44 Freq: Status: Active Protocol: Document 04/19/22 09:00 DCW (Rec: 04/19/22 17:09 DCW [id number]) Current Condition History of Current Condition Onset Date One year history Current Complaints Left hip weakness, numbness History of Current Condition Pt is a 71 year old female presenting with a one year history of insidious onset of left hip weakness and numbness . Pt reports she just work up , and it felt really weird. Numbness largely in anterior thigh. Describes weakness with adduction and flexion activities. 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 Approximately two weeks ago, pt had mass removed. Pt reports she has received pathology report, unable to remember what it says, and report does not appear to be present in the IH system. Unclear at this time if mass was causing her subjective complaints, but pt does feel there has been some slight improvement with her numbness over the past two weeks. Continues to feel weakness with ascending/ descending stairs, as well as trying to get up and start moving quickly. Left thigh appears to have some mild, yet visible, atrophy vs right thigh. Does note that at one point, maybe about a year ago, she was skiing, and her left leg got away from her, and ended up in a pretty severe hip abduction stretch, pt unsure if this had any effect on her current symptoms. Treatment Goals Patient/Caregiver Goals Improve weakness and sensory disturbances PT-OP-C Subjective Start: 04/19/22 16:44 Freq: Status: Active Protocol: Document 06/19/22 16:00 DCW (Rec: 06/19/22 16:45 DCW [id number]) OP-PT Subjective Patient Comments Patient Comments Pt reports she was gone for 4 days to [facility], and has felt fantastic since coming back, no pain to speak of at the moment. PT-OP-F Manual Assessment Start: 04/19/22 16:44 Freq: Status: Active Protocol: Document 06/13/22 16:45 DCW (Rec: 06/13/22 17:24 DCW [id number]) Manual Assessments Joint Mobility Assessment Joint Mobility Assessment Pt reports dull tightness in anteriolateral hip with passive hip flexion with therapist providing over- pressure. PT-OP-J Posture/Palpation/Skin Start: 04/19/22 17:09 Freq: Status: Active Protocol: Document 04/19/22 09:00 DCW (Rec: 04/19/22 17:11 DCW [id number]) Skin Assessment Circumference Measurement Left thigh Location 15 cm superior to patella Measurement (Centimeters) 39.1 Comments R=40.8 cm PT-OP-L Special Tests Start: 04/19/22 16:44 Freq: Status: Active Protocol: Document 06/13/22 16:45 DCW (Rec: 06/13/22 17:24 DCW [id number]) Special Tests Hip Special Tests Traction Test Results Long-axis traction results in pain relief Straight Leg Raise Test Results Negative Piriformis Test Results Tightness in anterior hip JOAN Test Results Tightness in anterior hip PT-OP-M Strength Start: 04/19/22 16:44 Freq: Status: Active Protocol: Document 06/13/22 16:45 DCW (Rec: 06/13/22 17:24 DCW [id number]) Hip Strength Hip Manual Muscle Testing Right Flexion (L2) 4+ Good+ Extension (S1) 4+ Good+ Abduction 4+ Good+ Adduction 4+ Good+ External Rotation 4+ Good+ Internal Rotation 4+ Good+ Left Flexion (L2) 4- Good- Extension (S1) 4+ Good+ Abduction 4+ Good+ Adduction 4 Good External Rotation 4+ Good+ Internal Rotation 4+ Good+ PT-OP-Q Treatments Start: 04/19/22 16:44 Freq: Status: Active Protocol: Document 06/19/22 16:00 DCW (Rec: 06/19/22 16:45 [facility] [id number]) Gym Equipment Shuttle Recovery Unilateral Squats Resistance 37# (1 new band) Shuttle Recovery Platform Stable Bilateral Squats Resistance 75# (2 new bands) Shuttle Recovery Platform Stable Therapeutic Exercises Supine Exercises Piriformis Stretch Supine Exercise Name Knee to opposite shoulder Side left Hamstring Stretch Supine Exercise Name HS stretch Side left Standing Exercises Calf stretch Standing Exercise Name Calf stretch Equipment Used DIDIER Extension Standing Exercise Name Hip Extension Side bilateral Resistance Blue Abduction Standing Exercise Name Hip Abduction Side bilateral Resistance Blue Other Exercises BOSU Lunge Other Exercise Name BOSU Lunge Side bilateral Step-ups Other Exercise Name Step-ups/downs Side bilateral Equipment Used 6->8 step Manual Therapy Treatment Joint Mobilizations Acetabular Joint L hip /c strap - short axis Direction Lateral Grade III Body Position Hooklying Neuro Re-Education Treatment Balance Activities Tilt board Details Lateral weight shift Tandem Stance Details Tandem Stance SLS Details SLS Surface Blue Foam PT-OP-T Assessment and Plan Start: 04/19/22 16:44 Freq: Status: Active Protocol: Document 06/19/22 16:00 DCW (Rec: 06/19/22 16:45 [facility] [id number]) Physical Therapy Assessment Impairments Impairments Activity Tolerance,Functional Activities,Functional Mobility ,Pain,ROM,Strength Goals Two Impairment Anterior hip pinching with hip horizontal adduction Financial Accountant Goal (LTG) Pt to demonstrate proper left piriformis stretch without any anterior hip pinching or sharp pain LTG Duration 07/14/22 - Improving One Impairment Pt does not have an appropriate home exercise program Short Term Goal (STG) Pt to be independent and compliant with an appropriate HEP STG Duration Met Assessment Summary Assessment Pt substantially better today than even last week when she was reassessed, feels like she is not having any pain or difficulty with her hip suddenly. Pt would like to cancel her appointment later this week, and return at her next scheduled visit next week . If pt continues to feel this good, may be at point of discharge. Physical Therapy Plan Frequency and Duration Frequency of Treatment 1-2x/week Plan of Care Start Date 06/13/22 Plan of Care End Date 07/14/22 Therapeutic Interventions Therapeutic Interventions Gait Training,Joint Mobilizations,Manual Therapy, Neuromuscular Re-education, Patient/Caregiver Education, Self-Care/Home Management,Soft Tissue Mobilization, Therapeutic Activities, Therapeutic Exercises Modalities Cold Pack/Ice Massage,Hot Packs Next Visit Focus/Plan Next Note Type Treatment Note Next Visit Plan Joint mobilizations, capsular stretching, LE strengthening
--- NOTE | 2022-06-25 11:57 | PT.OTN ---
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 (06/25/22) Pain in right hip (06/25/22) Weakness (06/25/22) Physical Therapy Treatment Note PT-OP-A Visit Information Start: 04/19/22 16:44 Freq: Status: Active Protocol: Document 06/25/22 11:15 DCW (Rec: 06/25/22 11:57 DCW [id number]) Out-Patient Physical Therapy Visit Information Visit Information Visit Type Treatment Note Visit Start Time 11:15 Visit Stop Time 12:00 Total Visit Minutes 45 Visit Number 11 Number of TRIAGE SPECIALIST Visits 0 Evaluation Information Evaluation Date 04/19/22 PT-OP-B Current Condition Start: 04/19/22 16:44 Freq: Status: Active Protocol: Document 04/19/22 09:00 DCW (Rec: 04/19/22 17:09 DCW [id number]) Current Condition History of Current Condition Onset Date One year history Current Complaints Left hip weakness, numbness History of Current Condition Pt is a 71 year old female presenting with a one year history of insidious onset of left hip weakness and numbness . Pt reports she just work up , and it felt really weird. Numbness largely in anterior thigh. Describes weakness with adduction and flexion activities. 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 Approximately two weeks ago, pt had mass removed. Pt reports she has received pathology report, unable to remember what it says, and report does not appear to be present in the IH system. Unclear at this time if mass was causing her subjective complaints, but pt does feel there has been some slight improvement with her numbness over the past two weeks. Continues to feel weakness with ascending/ descending stairs, as well as trying to get up and start moving quickly. Left thigh appears to have some mild, yet visible, atrophy vs right thigh. Does note that at one point, maybe about a year ago, she was skiing, and her left leg got away from her, and ended up in a pretty severe hip abduction stretch, pt unsure if this had any effect on her current symptoms. Treatment Goals Patient/Caregiver Goals Improve weakness and sensory disturbances PT-OP-C Subjective Start: 04/19/22 16:44 Freq: Status: Active Protocol: Document 06/25/22 11:15 DCW (Rec: 06/25/22 11:57 DCW [id number]) OP-PT Subjective Patient Comments Patient Comments I don't know if it has anything to do with the cold, rainy weather, but it's been worse since I've been back from [place]. PT-OP-F Manual Assessment Start: 04/19/22 16:44 Freq: Status: Active Protocol: Document 06/13/22 16:45 DCW (Rec: 06/13/22 17:24 DCW [id number]) Manual Assessments Joint Mobility Assessment Joint Mobility Assessment Pt reports dull tightness in anteriolateral hip with passive hip flexion with therapist providing over- pressure. PT-OP-J Posture/Palpation/Skin Start: 04/19/22 17:09 Freq: Status: Active Protocol: Document 04/19/22 09:00 DCW (Rec: 04/19/22 17:11 DCW [id number]) Skin Assessment Circumference Measurement Left thigh Location 15 cm superior to patella Measurement (Centimeters) 39.1 Comments R=40.8 cm PT-OP-L Special Tests Start: 04/19/22 16:44 Freq: Status: Active Protocol: Document 06/13/22 16:45 DCW (Rec: 06/13/22 17:24 DCW [id number]) Special Tests Hip Special Tests Traction Test Results Long-axis traction results in pain relief Straight Leg Raise Test Results Negative Piriformis Test Results Tightness in anterior hip JOAN Test Results Tightness in anterior hip PT-OP-M Strength Start: 04/19/22 16:44 Freq: Status: Active Protocol: Document 06/13/22 16:45 DCW (Rec: 06/13/22 17:24 DCW [id number]) Hip Strength Hip Manual Muscle Testing Right Flexion (L2) 4+ Good+ Extension (S1) 4+ Good+ Abduction 4+ Good+ Adduction 4+ Good+ External Rotation 4+ Good+ Internal Rotation 4+ Good+ Left Flexion (L2) 4- Good- Extension (S1) 4+ Good+ Abduction 4+ Good+ Adduction 4 Good External Rotation 4+ Good+ Internal Rotation 4+ Good+ PT-OP-Q Treatments Start: 04/19/22 16:44 Freq: Status: Active Protocol: Document 06/25/22 11:15 DCW (Rec: 06/25/22 11:57 DC [id number]) Gym Equipment Shuttle Recovery Unilateral Squats Resistance 37# (1 new band) Shuttle Recovery Platform Stable Bilateral Squats Resistance 75# (2 new bands) Shuttle Recovery Platform Stable Therapeutic Exercises Supine Exercises Piriformis Stretch Supine Exercise Name Knee to opposite shoulder Side left Hamstring Stretch Supine Exercise Name HS stretch Side left Standing Exercises Calf stretch Standing Exercise Name Calf stretch Equipment Used DIDIER Extension Standing Exercise Name Hip Extension Side bilateral Resistance Blue Abduction Standing Exercise Name Hip Abduction Side bilateral Resistance Blue Other Exercises BOSU Lunge Other Exercise Name BOSU Lunge Side bilateral Step-ups Other Exercise Name Step-ups/downs Side left Equipment Used 8 step Comments fwd, lateral Manual Therapy Treatment Joint Mobilizations Acetabular Joint L hip /c strap - short axis Direction Lateral Grade III Body Position Hooklying PT-OP-T Assessment and Plan Start: 04/19/22 16:44 Freq: Status: Active Protocol: Document 06/25/22 11:15 DCW (Rec: 06/25/22 11:57 [facility] [id number]) Physical Therapy Assessment Impairments Impairments Activity Tolerance,Functional Activities,Functional Mobility ,Pain,ROM,Strength Goals Two Impairment Anterior hip pinching with hip horizontal adduction Alf Goal (LTG) Pt to demonstrate proper left piriformis stretch without any anterior hip pinching or sharp pain LTG Duration 07/14/22 - Improving One Impairment Pt does not have an appropriate home exercise program Short Term Goal (STG) Pt to be independent and compliant with an appropriate HEP STG Duration Met Assessment Summary Assessment Pt not quite as good as she was feeling last week, but still improved overall. Decreasing frequency to 1x/ week for the next three weeks, ensure pt adjusts well to decreased PT, and will then likely discharge. Physical Therapy Plan Frequency and Duration Frequency of Treatment 1-2x/week Plan of Care Start Date 06/13/22 Plan of Care End Date 07/14/22 Therapeutic Interventions Therapeutic Interventions Gait Training,Joint Mobilizations,Manual Therapy, Neuromuscular Re-education, Patient/Caregiver Education, Self-Care/Home Management,Soft Tissue Mobilization, Therapeutic Activities, Therapeutic Exercises Modalities Cold Pack/Ice Massage,Hot Packs Next Visit Focus/Plan Next Note Type Treatment Note Next Visit Plan Joint mobilizations, capsular stretching, LE strengthening
--- NOTE | 2022-07-02 12:03 | PT.OTN ---
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 (07/02/22) Pain in right hip (07/02/22) Weakness (07/02/22) Physical Therapy Treatment Note PT-OP-A Visit Information Start: 04/19/22 16:44 Freq: Status: Active Protocol: Document 07/02/22 11:18 DCW (Rec: 07/02/22 12:03 DCW [id number]) Out-Patient Physical Therapy Visit Information Visit Information Visit Type Treatment Note Visit Start Time 11:18 Visit Stop Time 12:00 Total Visit Minutes 42 Visit Number 12 Number of ASSISTANT PROPERTY MANAGER Visits 0 Evaluation Information Evaluation Date 04/19/22 PT-OP-B Current Condition Start: 04/19/22 16:44 Freq: Status: Active Protocol: Document 04/19/22 09:00 DCW (Rec: 04/19/22 17:09 DCW [id number]) Current Condition History of Current Condition Onset Date One year history Current Complaints Left hip weakness, numbness History of Current Condition Pt is a 71 year old female presenting with a one year history of insidious onset of left hip weakness and numbness . Pt reports she just work up , and it felt really weird. Numbness largely in anterior thigh. Describes weakness with adduction and flexion activities. 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 Approximately two weeks ago, pt had mass removed. Pt reports she has received pathology report, unable to remember what it says, and report does not appear to be present in the IH system. Unclear at this time if mass was causing her subjective complaints, but pt does feel there has been some slight improvement with her numbness over the past two weeks. Continues to feel weakness with ascending/ descending stairs, as well as trying to get up and start moving quickly. Left thigh appears to have some mild, yet visible, atrophy vs right thigh. Does note that at one point, maybe about a year ago, she was skiing, and her left leg got away from her, and ended up in a pretty severe hip abduction stretch, pt unsure if this had any effect on her current symptoms. Treatment Goals Patient/Caregiver Goals Improve weakness and sensory disturbances PT-OP-C Subjective Start: 04/19/22 16:44 Freq: Status: Active Protocol: Document 07/02/22 11:18 DCW (Rec: 07/02/22 12:03 DCW [id number]) OP-PT Subjective Patient Comments Patient Comments Pt reports she has her TOYA scheduled for September 19. Was a little more sore after last visit, but felt it was all muscle, not joint pain. PT-OP-F Manual Assessment Start: 04/19/22 16:44 Freq: Status: Active Protocol: Document 06/13/22 16:45 DCW (Rec: 06/13/22 17:24 DCW [id number]) Manual Assessments Joint Mobility Assessment Joint Mobility Assessment Pt reports dull tightness in anteriolateral hip with passive hip flexion with therapist providing over- pressure. PT-OP-J Posture/Palpation/Skin Start: 04/19/22 17:09 Freq: Status: Active Protocol: Document 04/19/22 09:00 DCW (Rec: 04/19/22 17:11 DCW [id number]) Skin Assessment Circumference Measurement Left thigh Location 15 cm superior to patella Measurement (Centimeters) 39.1 Comments R=40.8 cm PT-OP-L Special Tests Start: 04/19/22 16:44 Freq: Status: Active Protocol: Document 06/13/22 16:45 DCW (Rec: 06/13/22 17:24 DCW [id number]) Special Tests Hip Special Tests Traction Test Results Long-axis traction results in pain relief Straight Leg Raise Test Results Negative Piriformis Test Results Tightness in anterior hip JOAN Test Results Tightness in anterior hip PT-OP-M Strength Start: 04/19/22 16:44 Freq: Status: Active Protocol: Document 06/13/22 16:45 DCW (Rec: 06/13/22 17:24 DCW [id number]) Hip Strength Hip Manual Muscle Testing Right Flexion (L2) 4+ Good+ Extension (S1) 4+ Good+ Abduction 4+ Good+ Adduction 4+ Good+ External Rotation 4+ Good+ Internal Rotation 4+ Good+ Left Flexion (L2) 4- Good- Extension (S1) 4+ Good+ Abduction 4+ Good+ Adduction 4 Good External Rotation 4+ Good+ Internal Rotation 4+ Good+ PT-OP-Q Treatments Start: 04/19/22 16:44 Freq: Status: Active Protocol: Document 07/02/22 11:18 DCW (Rec: 07/02/22 12:03 DCW [id number]) Gym Equipment Shuttle Recovery Unilateral Squats Resistance 37# (1 new band) Shuttle Recovery Platform Stable Bilateral Squats Resistance 75# (2 new bands) Shuttle Recovery Platform Stable Therapeutic Exercises Supine Exercises Piriformis Stretch Supine Exercise Name Knee to opposite shoulder Side left Hamstring Stretch Supine Exercise Name HS stretch Side left Standing Exercises Extension Standing Exercise Name Hip Extension Side bilateral Resistance Blue Abduction Standing Exercise Name Hip Abduction Side bilateral Resistance Blue Other Exercises BOSU Lunge Other Exercise Name BOSU Lunge Side bilateral Step-ups Other Exercise Name Step-ups/downs Side left Equipment Used 8 step Comments fwd, lateral Neuro Re-Education Treatment Balance Activities Tandem Stance Details Tandem Stance SLS Details SLS Surface Blue Foam PT-OP-T Assessment and Plan Start: 04/19/22 16:44 Freq: Status: Active Protocol: Document 07/02/22 11:18 DCW (Rec: 07/02/22 12:03 DCW [id number]) Physical Therapy Assessment Impairments Impairments Activity Tolerance,Functional Activities,Functional Mobility ,Pain,ROM,Strength Goals Two Impairment Anterior hip pinching with hip horizontal adduction Nursing Home Goal (LTG) Pt to demonstrate proper left piriformis stretch without any anterior hip pinching or sharp pain LTG Duration 07/14/22 - Improving One Impairment Pt does not have an appropriate home exercise program Short Term Goal (STG) Pt to be independent and compliant with an appropriate HEP STG Duration Met Assessment Summary Assessment Pt feeling good overall, happy with current progress, preparing for TOYA in two months, will likely discharge following last scheduled visit . Physical Therapy Plan Frequency and Duration Frequency of Treatment 1-2x/week Plan of Care Start Date 06/13/22 Plan of Care End Date 07/14/22 Therapeutic Interventions Therapeutic Interventions Gait Training,Joint Mobilizations,Manual Therapy, Neuromuscular Re-education, Patient/Caregiver Education, Self-Care/Home Management,Soft Tissue Mobilization, Therapeutic Activities, Therapeutic Exercises Modalities Cold Pack/Ice Massage,Hot Packs Next Visit Focus/Plan Next Note Type Treatment Note Next Visit Plan Joint mobilizations, capsular stretching, LE strengthening
--- NOTE | 2022-07-08 10:31 | PT.OTN ---
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 (07/08/22) Pain in right hip (07/08/22) Weakness (07/08/22) Physical Therapy Treatment Note PT-OP-A Visit Information Start: 04/19/22 16:44 Freq: Status: Active Protocol: Document 07/08/22 09:45 DCW (Rec: 07/08/22 10:31 DCW [id number]) Out-Patient Physical Therapy Visit Information Visit Information Visit Type Treatment Note Visit Start Time 09:45 Visit Stop Time 10:30 Total Visit Minutes 45 Visit Number 13 Number of SANFORIZER Visits 0 Evaluation Information Evaluation Date 04/19/22 PT-OP-B Current Condition Start: 04/19/22 16:44 Freq: Status: Active Protocol: Document 04/19/22 09:00 DCW (Rec: 04/19/22 17:09 DCW [id number]) Current Condition History of Current Condition Onset Date One year history Current Complaints Left hip weakness, numbness History of Current Condition Pt is a 71 year old female presenting with a one year history of insidious onset of left hip weakness and numbness . Pt reports she just work up , and it felt really weird. Numbness largely in anterior thigh. Describes weakness with adduction and flexion activities. 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 Approximately two weeks ago, pt had mass removed. Pt reports she has received pathology report, unable to remember what it says, and report does not appear to be present in the IH system. Unclear at this time if mass was causing her subjective complaints, but pt does feel there has been some slight improvement with her numbness over the past two weeks. Continues to feel weakness with ascending/ descending stairs, as well as trying to get up and start moving quickly. Left thigh appears to have some mild, yet visible, atrophy vs right thigh. Does note that at one point, maybe about a year ago, she was skiing, and her left leg got away from her, and ended up in a pretty severe hip abduction stretch, pt unsure if this had any effect on her current symptoms. Treatment Goals Patient/Caregiver Goals Improve weakness and sensory disturbances PT-OP-C Subjective Start: 04/19/22 16:44 Freq: Status: Active Protocol: Document 07/08/22 09:45 DCW (Rec: 07/08/22 10:31 DCW [id number]) OP-PT Subjective Patient Comments Patient Comments Today's such a good day, I don't know why. PT-OP-F Manual Assessment Start: 04/19/22 16:44 Freq: Status: Active Protocol: Document 06/13/22 16:45 DCW (Rec: 06/13/22 17:24 DCW [id number]) Manual Assessments Joint Mobility Assessment Joint Mobility Assessment Pt reports dull tightness in anteriolateral hip with passive hip flexion with therapist providing over- pressure. PT-OP-J Posture/Palpation/Skin Start: 04/19/22 17:09 Freq: Status: Active Protocol: Document 04/19/22 09:00 DCW (Rec: 04/19/22 17:11 DCW [id number]) Skin Assessment Circumference Measurement Left thigh Location 15 cm superior to patella Measurement (Centimeters) 39.1 Comments R=40.8 cm PT-OP-L Special Tests Start: 04/19/22 16:44 Freq: Status: Active Protocol: Document 06/13/22 16:45 DCW (Rec: 06/13/22 17:24 DCW [id number]) Special Tests Hip Special Tests Traction Test Results Long-axis traction results in pain relief Straight Leg Raise Test Results Negative Piriformis Test Results Tightness in anterior hip JOAN Test Results Tightness in anterior hip PT-OP-M Strength Start: 04/19/22 16:44 Freq: Status: Active Protocol: Document 06/13/22 16:45 DCW (Rec: 06/13/22 17:24 DCW [id number]) Hip Strength Hip Manual Muscle Testing Right Flexion (L2) 4+ Good+ Extension (S1) 4+ Good+ Abduction 4+ Good+ Adduction 4+ Good+ External Rotation 4+ Good+ Internal Rotation 4+ Good+ Left Flexion (L2) 4- Good- Extension (S1) 4+ Good+ Abduction 4+ Good+ Adduction 4 Good External Rotation 4+ Good+ Internal Rotation 4+ Good+ PT-OP-Q Treatments Start: 04/19/22 16:44 Freq: Status: Active Protocol: Document 07/08/22 09:45 DCW (Rec: 07/08/22 10:31 DCW [id number]) Gym Equipment Shuttle Recovery Unilateral Squats Resistance 37# (1 new band) Shuttle Recovery Platform Stable Bilateral Squats Resistance 75# (2 new bands) Shuttle Recovery Platform Stable Therapeutic Exercises Supine Exercises Piriformis Stretch Supine Exercise Name Fingure-4 Side left Hamstring Stretch Supine Exercise Name HS stretch Side left Standing Exercises Calf stretch Standing Exercise Name Calf stretch Equipment Used DIDIER Extension Standing Exercise Name Hip Extension Side bilateral Resistance Blue Abduction Standing Exercise Name Hip Abduction Side bilateral Resistance Blue Other Exercises BOSU Lunge Other Exercise Name BOSU Lunge Side bilateral Step-ups Other Exercise Name Step-ups/downs Side left Equipment Used 8 step Comments fwd, lateral Manual Therapy Treatment Joint Mobilizations Acetabular Joint L hip /c strap - short axis Direction Lateral Grade III Body Position Hooklying PT-OP-T Assessment and Plan Start: 04/19/22 16:44 Freq: Status: Active Protocol: Document 07/08/22 09:45 DCW (Rec: 07/08/22 10:31 DCW [id number]) Physical Therapy Assessment Impairments Impairments Activity Tolerance,Functional Activities,Functional Mobility ,Pain,ROM,Strength Goals Two Impairment Anterior hip pinching with hip horizontal adduction Exerciser Horse Goal (LTG) Pt to demonstrate proper left piriformis stretch without any anterior hip pinching or sharp pain LTG Duration 07/14/22 - Improving One Impairment Pt does not have an appropriate home exercise program Short Term Goal (STG) Pt to be independent and compliant with an appropriate HEP STG Duration Met Assessment Summary Assessment Pt doing well, happy with current level. Prepared for her TOYA in two months. Appropriate for discharge at this time, will return after surgery, understands she will need a new referral from surgeon. Physical Therapy Plan Frequency and Duration Frequency of Treatment 1-2x/week Plan of Care Start Date 06/13/22 Plan of Care End Date 07/14/22 Therapeutic Interventions Therapeutic Interventions Gait Training,Joint Mobilizations,Manual Therapy, Neuromuscular Re-education, Patient/Caregiver Education, Self-Care/Home Management,Soft Tissue Mobilization, Therapeutic Activities, Therapeutic Exercises Modalities Cold Pack/Ice Massage,Hot Packs Next Visit Focus/Plan Next Note Type Treatment Note Next Visit Plan Joint mobilizations, capsular stretching, LE strengthening
--- NOTE | 2022-07-08 10:33 | PT.OTN ---
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 (07/08/22) Pain in right hip (07/08/22) Weakness (07/08/22) Physical Therapy Treatment Note PT-OP-A Visit Information Start: 04/19/22 16:44 Freq: Status: Active Protocol: Document 07/08/22 09:45 DCW (Rec: 07/08/22 10:31 DCW [id number]) Out-Patient Physical Therapy Visit Information Visit Information Visit Type Treatment Note Visit Start Time 09:45 Visit Stop Time 10:30 Total Visit Minutes 45 Visit Number 13 Number of PASSPORT SUPPORT ASSOCIATE Visits 0 Evaluation Information Evaluation Date 04/19/22 PT-OP-B Current Condition Start: 04/19/22 16:44 Freq: Status: Active Protocol: Document 04/19/22 09:00 DCW (Rec: 04/19/22 17:09 DCW [id number]) Current Condition History of Current Condition Onset Date One year history Current Complaints Left hip weakness, numbness History of Current Condition Pt is a 71 year old female presenting with a one year history of insidious onset of left hip weakness and numbness . Pt reports she just work up , and it felt really weird. Numbness largely in anterior thigh. Describes weakness with adduction and flexion activities. Was receiving acupuncture to help with these complaints, when hide or skin buffer noticed a small mass on her posterior left hip . 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 Approximately two weeks ago, pt had mass removed. Pt reports she has received pathology report, unable to remember what it says, and report does not appear to be present in the [facility] system. Unclear at this time if mass was causing her subjective complaints, but pt does feel there has been some slight improvement with her numbness over the past two weeks. Continues to feel weakness with ascending/ descending stairs, as well as trying to get up and start moving quickly. Left thigh appears to have some mild, yet visible, atrophy vs right thigh. Does note that at one point, maybe about a year ago, she was skiing, and her left leg got away from her, and ended up in a pretty severe hip abduction stretch, pt unsure if this had any effect on her current symptoms. Treatment Goals Patient/Caregiver Goals Improve weakness and sensory disturbances PT-OP-C Subjective Start: 04/19/22 16:44 Freq: Status: Active Protocol: Document 07/08/22 09:45 DCW (Rec: 07/08/22 10:31 DCW [id number]) OP-PT Subjective Patient Comments Patient Comments Today's such a good day, I don't know why. PT-OP-F Manual Assessment Start: 04/19/22 16:44 Freq: Status: Active Protocol: Document 06/13/22 16:45 DCW (Rec: 06/13/22 17:24 DCW [id number]) Manual Assessments Joint Mobility Assessment Joint Mobility Assessment Pt reports dull tightness in anteriolateral hip with passive hip flexion with therapist providing over- pressure. PT-OP-J Posture/Palpation/Skin Start: 04/19/22 17:09 Freq: Status: Active Protocol: Document 04/19/22 09:00 DCW (Rec: 04/19/22 17:11 DCW [id number]) Skin Assessment Circumference Measurement Left thigh Location 15 cm superior to patella Measurement (Centimeters) 39.1 Comments R=40.8 cm PT-OP-L Special Tests Start: 04/19/22 16:44 Freq: Status: Active Protocol: Document 06/13/22 16:45 DCW (Rec: 06/13/22 17:24 DCW [id number]) Special Tests Hip Special Tests Traction Test Results Long-axis traction results in pain relief Straight Leg Raise Test Results Negative Piriformis Test Results Tightness in anterior hip JOAN Test Results Tightness in anterior hip PT-OP-M Strength Start: 04/19/22 16:44 Freq: Status: Active Protocol: Document 06/13/22 16:45 DCW (Rec: 06/13/22 17:24 DCW [id number]) Hip Strength Hip Manual Muscle Testing Right Flexion (L2) 4+ Good+ Extension (S1) 4+ Good+ Abduction 4+ Good+ Adduction 4+ Good+ External Rotation 4+ Good+ Internal Rotation 4+ Good+ Left Flexion (L2) 4- Good- Extension (S1) 4+ Good+ Abduction 4+ Good+ Adduction 4 Good External Rotation 4+ Good+ Internal Rotation 4+ Good+ PT-OP-Q Treatments Start: 04/19/22 16:44 Freq: Status: Active Protocol: Document 07/08/22 09:45 DCW (Rec: 07/08/22 10:31 DCW [id number]) Gym Equipment Shuttle Recovery Unilateral Squats Resistance 37# (1 new band) Shuttle Recovery Platform Stable Bilateral Squats Resistance 75# (2 new bands) Shuttle Recovery Platform Stable Therapeutic Exercises Supine Exercises Piriformis Stretch Supine Exercise Name Fingure-4 Side left Hamstring Stretch Supine Exercise Name HS stretch Side left Standing Exercises Calf stretch Standing Exercise Name Calf stretch Equipment Used DIDIER Extension Standing Exercise Name Hip Extension Side bilateral Resistance Blue Abduction Standing Exercise Name Hip Abduction Side bilateral Resistance Blue Other Exercises BOSU Lunge Other Exercise Name BOSU Lunge Side bilateral Step-ups Other Exercise Name Step-ups/downs Side left Equipment Used 8 step Comments fwd, lateral Manual Therapy Treatment Joint Mobilizations Acetabular Joint L hip /c strap - short axis Direction Lateral Grade III Body Position Hooklying PT-OP-T Assessment and Plan Start: 04/19/22 16:44 Freq: Status: Active Protocol: Document 07/08/22 09:45 DCW (Rec: 07/08/22 10:31 DCW [id number]) Physical Therapy Assessment Impairments Impairments Activity Tolerance,Functional Activities,Functional Mobility ,Pain,ROM,Strength Goals Two Impairment Anterior hip pinching with hip horizontal adduction Battery Charger Conveyor Line Goal (LTG) Pt to demonstrate proper left piriformis stretch without any anterior hip pinching or sharp pain LTG Duration Met One Impairment Pt does not have an appropriate home exercise program Short Term Goal (STG) Pt to be independent and compliant with an appropriate HEP STG Duration Met Assessment Summary Assessment Pt doing well, happy with current level. Prepared for her TOYA in two months. Appropriate for discharge at this time, will return after surgery, understands she will need a new referral from surgeon. Physical Therapy Plan Frequency and Duration Frequency of Treatment 1-2x/week Plan of Care Start Date 06/13/22 Plan of Care End Date 07/14/22 Therapeutic Interventions Therapeutic Interventions Gait Training,Joint Mobilizations,Manual Therapy, Neuromuscular Re-education, Patient/Caregiver Education, Self-Care/Home Management,Soft Tissue Mobilization, Therapeutic Activities, Therapeutic Exercises Modalities Cold Pack/Ice Massage,Hot Packs Discharge Physical Therapy Discharge Reasons Goals Met Next Visit Focus/Plan Next Note Type Discharge Summary
== END 2022-07-10 08:49 | disposition home or self-care (01) ==
LOC: PHYS 09:45
PROVIDERS: Family Provider Internal Medicine; PCP Internal Medicine; Referring Provider Internal Medicine; Visit Provider Internal Medicine
DX: G83.10 Monoplegia of lower limb affecting unspecified side (principal); M25.551 Pain in right hip; R53.1 Weakness
CPT/HCPCS: 97110; 97112; 97140; 97161; 97535

== ENCOUNTER 2022-07-09 11:53 | Observation (INO) | payer OTHER, SELFPAY ==
[2022-07-09] VITALS (9 sets, daily range): BP systolic 130–184; BP diastolic 65–91; PULSE 61–86; RESP 16–18; TEMP 35.8–36.6; O2SAT 97–100; BMI 19.3
--- NOTE | 2022-07-09 12:30 | DI.CT.S_ITS ---
PROCEDURE: CT STROKE INDICATIONS: Positive BE-FAST, Stroke symptoms TECHNIQUE: Noncontrast 4.5 mm thick angled axial sections acquired from the foramen magnum to the vertex, with coronal reformats. For radiation dose reduction, the following was used: automated exposure control, adjustment of mA and/or kV according to patient size. COMPARISON: None. FINDINGS: Image quality: Excellent. CSF spaces: Basal cisterns are patent. No extra-axial fluid collections. The ventricles are symmetric in size and shape. Brain: No intracranial bleeds or masses. There is cerebral volume loss for age, with resultant ventricular and sulcal prominence. There are periventricular and deep white matter chronic small vessel ischemic changes. There is intracranial internal carotid artery atherosclerosis. Skull and face: Calvarium and visualized facial bones appear intact, without suspicious lesions. Sinuses: Visualized sinuses and mastoids are clear. IMPRESSION: 1. No evidence of acute intracranial process. 2. Age-appropriate exam. 3. Discussed with Dr. Anne in the emergency room at 13:11 hours. This study fulfills neurological imaging criteria for inclusion or exclusion of acute stroke therapies based on available published neurological guidelines. Dictated by: Traci Natarajan M.D. on 07/09/2022 at 13:09 Approved by: Traci Natarajan M.D. on 07/09/2022 at 13:11
--- NOTE | 2022-07-09 12:30 | DI.RAD.S_ITS ---
PROCEDURE: XR CHEST 1V INDICATIONS: Possible stroke TECHNIQUE: One view of the chest was acquired. COMPARISON: None. FINDINGS: Surgical changes and devices: None. Lungs and pleura: Upper lungs are hyperinflated. No dense consolidation.. No pleural effusions or pneumothorax. Mediastinum: Mediastinal contours appear normal. Heart size is normal. Bones and chest wall: No suspicious bony lesions. Overlying soft tissues appear unremarkable. IMPRESSION: No acute cardiopulmonary disease. Mild upper lobe hyperinflation suggesting emphysema. Dictated by: Traci Natarajan M.D. on 07/09/2022 at 13:12 Approved by: Traci Natarajan M.D. on 07/09/2022 at 13:13
[2022-07-09 13:26] LABS: Add Manual Diff / Slide Review NO; Basophils Absolute Auto 100 /uL (0-100); Basophils Percent Auto 0.8 % (0-2); Eosinophils Absolute Auto 200 /uL (0-450); Eosinophils Percent Auto 2.6 % (2-4); Hematocrit 40.1 % (36-46); Hemoglobin 13.1 g/dL (12.0-16.0); Lymphocytes Absolute Auto 2500 /uL (1100-4500); Lymphocytes Percent Auto 38.4 % (25-40); Mean Corpuscular HGB Conc 32.8 % (30-36); Mean Corpuscular Hemoglobin 31.9 PG (26-34); Mean Corpuscular Volume 97.4 fL (80-100); Monocytes Absolute Auto 300 /uL (0-900); Neutrophils Absolute Auto 3500 /uL (1500-7000); Neutrophils Percent Auto 53.2 % (50-75); Platelet Count 320 X10^3/uL (150-400); Red Blood Cell Count 4.11 X10^6/uL (4.0-5.2); Red Cell Distribution Width 13.8 % (11.6-14.8); White Blood Cell Count 6.5 X10^3/uL (4.5-11.0)
[2022-07-09 13:34] LABS: Prothrombin Time 11.6 SECONDS (10.1-12.7)
--- NOTE | 2022-07-09 13:34 | ED_ITS ---
HPI - Neuro Symptoms/Deficit General Chief Complaint: Neuro Symptoms/Deficit Stated Complaint: Disoriented, feeling abnormal Time Seen by Provider: 07/09/22 13:03 Source: patient and family Mode of arrival: Ambulatory Limitations: no limitations History of Present Illness HPI Narrative: Patient is a 72-year-old female who is here with her for evaluation of an episode that occurred earlier this morning. Patient states she was at her normal state of health. She was talking on the phone with a friend when she states that she suddenly became very disoriented. She would a hard time understanding what her friend was telling her over the phone. She would a hard time speaking. Was having hard time finding words. During this episode she reported no other associated symptoms to include headache or vision changes or chest pain or shortness of breath or palpitations or nausea vomiting or upper and lower extremity tingling. She is never had these episodes happen in the past. She hung up with her friend. She ate a tangerine. Had no problems swallowing. She then went and laid down. Her came home soon afterwards. Her stated that she was not slurring her words but did seem somewhat confused about the event that happened. Patient thinks that the entire event occurred over approximately 20 minutes. At the time my evaluation she is completely resolved. On Anticoagulants: No Related Data Home Medications Medication Instructions Recorded Confirmed estradiol 0.01% (0.1 mg/gram) 1 g vaginal 2XW 06/14/21 04/09/22 vaginal cream ascorbic acid (vitamin C) 500 mg mg PO 03/15/22 04/09/22 capsule calcium 333.33 mg-vit D3 6.67 tab PO 03/15/22 04/09/22 mcg-magnes 32 mg-vit K2-min-herb tablet (Algae Based Calcium) multivitamin (Daily Multi-Vitamin 1 tab PO DAILY 03/15/22 04/09/22 tablet) omega 0-mxe-euk-fish oil 300 1 cap PO DAILY 03/15/22 04/09/22 mg-1,000 mg capsule (Fish Oil) Allergies Allergy/AdvReac Type Severity Reaction Status Date / Time Penicillins [PENICILLINS] Allergy Intermediate Verified 07/09/22 13:44 Review of Systems Review of Systems ROS Unobtainable: All systems reviewed & are unremarkable except as noted in HPI and below Hematologic/Lymphatic On Anticoagulants: No Patient History Medical History Chicken pox Foot fracture Measles Mumps Osteoarthritis (~1999) Osteopenia Osteoporosis Subcutaneous mass of left lower extremity Social History Smoking Status: Former smoker Smoking Status: Former smoker alcohol intake frequency: holidays/special occasions only Substance Use Type: does not use Exam Initial Vital Signs Initial Vital Signs: Vital Signs Temperature 97.5 F L 07/09/22 12:11 Pulse Rate 86 07/09/22 12:11 Respiratory Rate 18 07/09/22 12:11 Blood Pressure 184/91 H 07/09/22 12:11 Pulse Oximetry 100 07/09/22 12:11 Oxygen Delivery Method Room Air 07/09/22 12:11 Const General: cooperative, comfortable and No ill appearing HENMT Head: normal to inspection and normocephalic Resp Effort & Inspection: normal respiratory effort Auscultation: clear to auscultation bilaterally Cardio Rate: regular rate Rhythm: regular rhythm GI Inspection: normal to inspection Palpation: soft, No firm and No tender Skin General: no rashes or lesions noted Neuro General: patient alert, patient awake, patient oriented x3 and moves all extremities Cranial Nerves: CN's II-XI intact bilaterally Cognition: normal cognition Speech: speech normal Gait: normal gait Sensory Exam: no sensory deficits noted Extrem General: normal to inspection, capillary refill normal and No edema Psych Appearance: grossly normal and well kempt Scores ABCD2 Age >= 60 years: yes Initial BP. Either SBP >= 140 or DBP >= 90.: yes Clinical features of the TIA: speech disturbance without weakness Duration of symptoms: 10-59 minutes History of diabetes: no ABCD2 Score: 4 GCS Krystian coma scale eye opening: Spontaneous Krystian coma scale verbal response: Orientated Krystian coma scale motor response: Obey commands Freeland coma scale total score: 15 NIH Stroke Scale Level of Conciousness: Alert, keenly responsive Ask month/age: Answers both questions correctly. Open/close eyes, close hand: Performs both tasks correctly Best gaze horizontal: Normal Visual veliz: No visual loss Facial palsy: Normal symetrical movement Left arm drift: No drift for full 10 sec Right arm drift: No drift for full 10 sec Left leg drift: No drift for full 5 sec Right leg drift: No drift for full 5 sec Limb ataxia: Absent Sensory on face/arms/legs: Normal, no sensory loss Best language: No aphasia, normal Dysarthria: Normal Extinction or inattention: No abnormality Total NIH Stroke scale score: 0 Course Orders Ordered: ED Orders 07/09/22 12:30 CT Stroke Stat XR chest 1V Stat COVID19 - ADMIT ([employer] swab/PCR) Stat Urine Drug Screen, Rapid Stat 07/09/22 12:37 EKG-12 Lead Stat 07/09/22 13:19 Complete Blood Count AUTO DIFF Stat Comprehensive Metabolic Panel Stat Magnesium Stat PTT Partial Thromboplastin Tacho Stat Prothrombin Time INR Stat Troponin & CK Cardiac Panel Stat 07/09/22 13:50 EC echo doppler complete Stat 07/09/22 13:51 MR stroke Stat Ondansetron HCl (Ondansetron 4 Mg Odt) 4 mg SL NOW PRN PRN Reason: Nausea And Vomiting Ondansetron HCl (Ondansetron 4 Mg/2 Ml Inj) 4 mg IV NOW PRN PRN Reason: Nausea And Vomiting Discontinued Medications Aspirin (Aspirin 81 Mg Chew Tab) 324 mg PO NOW ONE Stop: 07/09/22 13:36 Last Admin: 07/09/22 13:48 Dose: 243 mg Documented By: GINI Clopidogrel Bisulfate (Clopidogrel 75 Mg Tablet) 300 mg PO NOW ONE Stop: 07/09/22 13:36 Last Admin: 07/09/22 13:49 Dose: 300 mg Documented By: GINI Vital Signs Vital signs: Vital Signs - 8 hr 07/09/22 12:11 07/09/22 12:56 07/09/22 13:44 Temperature 97.5 F L Pulse Rate 86 68 62 Respiratory Rate 18 16 16 Blood Pressure 184/91 H 159/76 H Pulse Oximetry 100 99 99 Oxygen Delivery Method Room Air 07/09/22 13:45 07/09/22 13:45 Temperature Pulse Rate 63 Respiratory Rate Blood Pressure 170/85 H Pulse Oximetry 98 Oxygen Delivery Method MDM - Neuro Symptoms/Deficit Lab Data Attestation: I reviewed the patient's lab results. 07/09/22 13:19 07/09/22 13:19 Labs: Lab Results 07/09/22 07/09/22 07/09/22 Range/Units 13:19 13:19 13:19 WBC 6.5 (4.5-11.0) X10^3/uL RBC 4.11 (4.0-5.2) X10^6/uL Hgb 13.1 (12.0-16.0) g/dL Hct 40.1 (36-46) % MCV 97.4 (80-100) fL MCH 31.9 (26-34) PG MCHC 32.8 (30-36) % RDW 13.8 (11.6-14.8) % Plt Count 320 (150-400) X10^3/uL Neut % (Auto) 53.2 (50-75) % Lymph % (Auto) 38.4 (25-40) % [place] % (Auto) 5.0 (3-14) % Eos % (Auto) 2.6 (2-4) % Baso % (Auto) 0.8 (0-2) % Neut # (Auto) 3500 (6766-6026) /uL Lymph # (Auto) 2500 (3851-0513) /uL [place] # (Auto) 300 (0-900) /uL Eos # (Auto) 200 (0-450) /uL Baso # (Auto) 100 (0-100) /uL PT 11.6 (10.1-12.7) SECONDS INR 1.0 (0.9-1.3) APTT 36 (26-36) SECONDS Sodium 138 (137-145) mmol/L Potassium 4.3 (3.4-5.1) mmol/L Chloride 102 (98-107) mmol/L Carbon Dioxide 31 (22-32) mmol/L BUN 14 (7-17) mg/dL Creatinine 0.53 (0.52-1.04) mg/dL Estimated GFR > 60 (>60) mL/min BUN/Creatinine Ratio 26.4 H (6-22) Glucose 106 (80-110) mg/dL Calcium 9.2 (8.4-10.2) mg/dL Magnesium 2.1 (1.6-2.3) mg/dL Total Bilirubin 0.6 (0.2-1.3) mg/dL AST 25 (14-36) IU/L ALT 31 (<35) IU/L Alkaline Phosphatase 88 (38-126) U/L Total Creatine Kinase 77 (30-135) U/L CK-MB (CK-2) TNP CK-MB (CK-2) Rel Index TNP Troponin I < 0.012 (0.01-0.034) ng/mL Total Protein 7.6 (6.3-8.2) g/dL Albumin 4.5 (3.5-5.0) g/dL Globulin 3.1 (1.7-4.1) g/dL Albumin/Globulin Ratio 1.5 (1.0-2.8) Point of Care Testing Glucose POC 99 Imaging Data Chest x-ray: Radiologist's Impression: PROCEDURE:? XR CHEST 1V ? INDICATIONS:? Possible stroke ? TECHNIQUE:? One view of the chest was acquired.? ? COMPARISON:? None. ? FINDINGS:? ? Surgical changes and devices:? None.? ? Lungs and pleura:? Upper lungs are hyperinflated.? No dense consolidation..? No pleural effusions or pneumothorax.? ? Mediastinum:? Mediastinal contours appear normal.? Heart size is normal.? ? Bones and chest wall:? No suspicious bony lesions.? Overlying soft tissues appear unremarkable.? ? IMPRESSION:? No acute cardiopulmonary disease.? Mild upper lobe hyperinflation suggesting emphysema. CT scan - head: Radiologist's Impression: PROCEDURE:? CT STROKE ? INDICATIONS:? Positive BE-FAST, Stroke symptoms ? TECHNIQUE:? Noncontrast 4.5 mm thick angled axial sections acquired from the foramen magnum to the vertex, with coronal reformats.? For radiation dose reduction, the following was used:? automated exposure control, adjustment of mA and/or kV according to patient size.? ? COMPARISON:? None. ? FINDINGS:? Image quality:? Excellent.? ? CSF spaces:? Basal cisterns are patent.? No extra-axial fluid collections.? The ventricles are symmetric in size and shape.? ? Brain:? No intracranial bleeds or masses.? There is cerebral volume loss for age, with resultant ventricular and sulcal prominence.? There are periventricular and deep white matter chronic small vessel ischemic changes.? There is intracranial internal carotid artery atherosclerosis.? ? Skull and face:? Calvarium and visualized facial bones appear intact, without s uspicious lesions.? ? Sinuses:? Visualized sinuses and mastoids are clear.? ? IMPRESSION:? ? 1. No evidence of acute intracranial process. ? 2. Age-appropriate exam. ? 3. Discussed with Dr. Anne in the emergency room at 13:11 hours.? ? This study fulfills neurological imaging criteria for inclusion or exclusion of acute stroke therapies based on available published neurological guidelines.? ECG Data Attestation: I personally reviewed and interpreted this ECG as follows: Interpretation: Sinus rhythm Ventricular rate is 69 Normal axis Normal QRS Normal QTC No ST T wave changes MDM Narrative Medical decision making narrative: Patient arrived hypertensive that has improved without specific intervention. Her symptoms this morning lasted approximately 20 minutes. Her history is consistent with a TIA. Head CT is unremarkable. Labs unremarkable. Has a NIH score of 0. Patient has no current symptoms. Patient does require admission the hospital for further evaluation of her TIA symptoms. She was given aspirin and Plavix for the dual antiplatelet therapy. We will hold on a CTA for now. The patient will be able to get vascular imaging with the MRI stroke. I did discuss the case with Dr. Garcia who is on-call for the patient's primary doctor. She asked that I order the echocardiogram and also the stroke MRI. She will follow-up on the results of this. Patient was informed of the need for admission the hospital and further workup. She expressed understanding and agreement. Discharge Plan Departure Patient Disposition: Admitted as Observation Clinical Impression: Brain TIA, Hypertension
[2022-07-09 13:37] LABS: PTT Partial Thromboplastin Tim 36 SECONDS (26-36)
[2022-07-09 13:39] LABS: Alanine Aminotransferase 31 IU/L (<35); Albumin 4.5 g/dL (3.5-5.0); Albumin Globulin Ratio 1.5 (1.0-2.8); Alkaline Phosphatase 88 U/L (38-126); Aspartate Aminotransferase 25 IU/L (14-36); BUN Creatinine Ratio 26.4 (6-22); Bilirubin Total 0.6 mg/dL (0.2-1.3); Blood Urea Nitrogen 14 mg/dL (7-17); Calcium 9.2 mg/dL (8.4-10.2); Carbon Dioxide 31 mmol/L (22-32); Chloride 102 mmol/L (98-107); Creatine Kinase 77 U/L (30-135); Estimated Glomerular Filt Rate > 60 mL/min (>60); Globulin 3.1 g/dL (1.7-4.1); Glucose 106 mg/dL (80-110); HEMOLYSIS < 15 (0-50); Magnesium 2.1 mg/dL (1.6-2.3); Potassium 4.3 mmol/L (3.4-5.1); Sodium 138 mmol/L (137-145); Total Protein 7.6 g/dL (6.3-8.2)
[2022-07-09] MEDS: ASPIRIN 81 MG CHEW TAB 324 MG PO (13:48)
[2022-07-09] MEDS: CLOPIDOGREL 75 MG TABLET 300 MG PO (13:49)
[2022-07-09 13:50] LABS: Troponin I < 0.012 ng/mL (0.01-0.034)
--- NOTE | 2022-07-09 13:51 | DI.MRI.S_ITS ---
PROCEDURE: MR STROKE INDICATIONS: TIA TECHNIQUE: Brain: Noncontrast axial T1 spin echo, axial T2 fast spin echo, sagittal and axial FLAIR, coronal T2 fast spin echo, axial gradient echo, axial diffusion and ADC through the brain. MR angiogram: Noncontrast axial 3D [id number] MR angiogram, with maximum intensity projection reformats of the internal carotid arteries and posterior circulation then performed. COMPARISON: [facility], CT, CT STROKE, 07/09/2022, 12:41. [facility], MR, MR STROKE, 08/16/2021, 9:16. FINDINGS: Image quality: Excellent. BRAIN: CSF Spaces: Basal cisterns are patent. No extra-axial fluid collections. Ventricles are normal in size and shape. Brain: No midline shift. No intracranial bleeds or mass effects. The brainstem appears normal. [place]/white matter interface appears normal. Diffusion-weighted images demonstrate no acute ischemic insult. Normal intravascular flow voids are present. Skull and face: Calvarium has normal marrow signal. Orbits appear normal. Sinuses: Sinuses and mastoids are clear. BRAIN MR ANGIOGRAM: Anterior circulation: Intracranial internal carotid arteries demonstrate normal size and intraluminal flow signal. The flow within the paired anterior cerebral arteries is normal and symmetric. The flow within the middle cerebral arteries is normal and symmetric. The anterior communicating artery is seen. No stenoses, occlusions, or aneurysms. Posterior circulation: distal left vertebral artery not well visualized, may be related to diminutive caliber/right-dominant anatomy as seen previously, short segment occlusion difficult to fully exclude. The flow within the posterior cerebral arteries is normal and symmetric. No stenoses, occlusions, or aneurysms. Unremarkable MRA of the neck without evidence of high-grade carotid stenosis. Right vertebral artery dominant anatomy as before IMPRESSION: 1. No evidence of acute cerebral infarct. 2. Distal left vertebral artery not well visualized, may be related to diminutive caliber/right-dominant anatomy as seen previously, short segment occlusion difficult to fully exclude. Otherwise unremarkable MRA of the head and neck. Dictated by: Alex Stoddard M.D. on 07/09/2022 at 19:09 Approved by: Alex Stoddard M.D. on 07/09/2022 at 19:26
[2022-07-09 14:30] LABS: UR Morphine/Opiate cutoff 300 Negative (Negative); Ur Creatinine Normal (Normal); Ur Specific Gravity Normal (Normal); Urine Cocaine Negative (Negative); Urine Tetrahydrocannabinol Negative (Negative); Urine pH Normal (Normal)
--- NOTE | 2022-07-09 14:30 | DI.ECHO.S_ITS ---
:Name: SUSAN THOMPSON Study Date: 07/09/2022 Height: 62 in : :[facility] ReadingLocation: Weight: 106 lb : : Gender: Female BSA: 1.5 m2 : :: 1950 Age: 72 yrs BP: 130/65 mmHg: :Reason For Study: TIA : :Ordering Physician: RAY, : :JESSY Performed By: Cris Metcalf : :Referring: JESSY BELL : + + Interpretation Summary The left ventricle is normal in size and wall thickness. The ejection fraction is estimated to be 60-65%. There are no focal wall motion abnormalities. Diastolic parameters suggest probable normal left ventricular diastolic function and normal filling pressures. The right ventricle is normal in size and function. The right ventricular systolic pressure is estimated to be at least 21 mmHg based on an estimated right atrial pressure of 3 mm Hg. The left atrial size is normal. Right atrial size is normal. There is mild mitral regurgitation. There is moderate aortic regurgitation. There is no other significant valvular heart disease. The ascending aorta is mildly enlarged. No obvious source for TIA. Procedure: A two-dimensional transthoracic echocardiogram with color flow and Doppler was performed. The study quality was technically adequate. There is no prior echocardiogram noted for this patient. The patient was in sinus rhythm with heart rates between 62-74 bpm during the exam. Left Ventricle: The left ventricle is normal in size and wall thickness. The ejection fraction is estimated to be 60-65%. There are no focal wall motion abnormalities. Diastolic parameters suggest probable normal left ventricular diastolic function and normal filling pressures. Right Ventricle: The right ventricle is normal in size and function. Atria: The left atrial size is normal. Right atrial size is normal. There is no Doppler evidence for an interatrial shunt. Mitral Valve: The mitral valve is normal in structure and function. There is mild mitral regurgitation. Aortic Valve: The aortic valve is trileaflet. The aortic valve opens well. There is no aortic valve stenosis. There is moderate aortic regurgitation. Tricuspid Valve: The tricuspid valve is normal in structure and function. There is trace tricuspid regurgitation. The right ventricular systolic pressure is estimated to be at least 21 mmHg based on an estimated right atrial pressure of 3 mm Hg. Pulmonic Valve: The pulmonic valve leaflets are thin and pliable; valve motion is normal. There is trace pulmonic regurgitation. There is no other significant valvular heart disease. Great Vessels: The aortic root is normal size. The ascending aorta is mildly enlarged. The IVC is of normal diameter and collapses greater than 50% with a sniff. This suggests a low right atrial pressure of 3 mm Hg. Pericardium/ Pleura There is no pericardial effusion. There is no pleural effusion. MMode/2D Measurements & Calculations LVIDd: 4.1 cm LVOT diam: 2.0 cm LVIDs: 3.1 cm Ao root diam: 3.3 cm FS: 25.4 % asc Aorta Diam: 3.5 cm EPSS: 0.79 cm Ao Arch Diam (Prox Trans): 2.5 cm IVSd: 0.64 cm LVPWd: 0.69 cm LV menon. diameter/BSA (cm/m^2): 2.8 LV sys. diameter/BSA (cm/m^2): 2.1 LA A2 area: 15.9 cm2 RA long axis: 4.8 cm LA A4 area: 13.8 cm2 RA area: 12.2 cm2 LA length (vol): 4.5 cm RA vol: 26.2 ml LA vol: 41.5 ml RA : 18.0 ml/m2 LA vol index: 28.5 ml/m2 IVC diam: 1.4 cm RVD1 (basal): 2.9 cm RVD2 (mid): 2.2 cm TAPSE: 2.0 cm Doppler Measurements & Calculations Ao V2 max: 110.9 cm/sec LVOT Max Suman: 89.3 cm/sec Ao V2 mean: 80.2 cm/sec LV V1 max P.2 mmHg Ao max P.9 mmHg LV V1 VTI: 23.5 cm Ao mean P.8 mmHg FABIAN(I,D): 2.7 cm2 Ao V2 VTI: 25.6 cm FABIAN(V,D): 2.4 cm2 sev ratio: 0.92 FABIAN indexed to BSA (cm^2/m^2): 1.9 AI P1/2t: 539.8 msec AI dec slope: 275.5 cm/sec2 MV E max suman: 53.2 cm/sec TR max suman: 212.2 cm/sec MV A max suman: 51.9 cm/sec TR max P.0 mmHg MV E/A: 1.0 PA V2 max: 58.1 cm/sec Med Peak E' Suman: 6.0 cm/sec PA V2 mean: 39.4 cm/sec E/E' med: 8.9 PA mean P.70 mmHg Lat Peak E' Suman: 8.4 cm/sec PA pr(Accel): 12.2 mmHg E/E' lat: 6.3 E/e' average: 7.6 MV dec time: 0.19 sec SV(LVOT): 70.4 ml Reading Physician:04:28 PM
[2022-07-09 14:31] LABS: Urine Amphetamines Negative (Negative); Urine Barbiturates Negative (Negative); Urine Benzodiazepines Negative (Negative); Urine MDMA Negative (Negative); Urine Methadone Negative (Negative); Urine Methamphetamines Negative (Negative); Urine Oxycodone Negative (Negative); Urine Phencyclidine Negative (Negative); Urine Tricyclic Antidepressant Negative (Negative)
[2022-07-09 14:46] LABS: COVID19 -Nasal RAPID Negative (Negative)
--- NOTE | 2022-07-09 15:18 | PC.NURSE ---
Admit Note Patient arrived to room 212 at 1500 from ER. Pt is alert and oriented x3. Speech is slow but clear. Pt reports she still feels a little spacey and there have been a lot going on. Steady on feet, instructed to use call light for assistance prior to getting out of bed, acknowledged understanding. Echo done in ER. MRI scheduled for 1750. Oriented to room and bed controls/tv controls/call light within reach. Declines to lock up valuables, cell phone at bedside.
--- NOTE | 2022-07-09 18:37 | P.HP_ITS ---
History of Present Illness History of Present Illness Date Patient Seen: 07/09/22 Time Patient Seen: 18:37 Date of Onset of Symptoms: 07/09/22 Chief complaint: Disoriented, feeling abnormal Narrative: This is a very pleasant 72-year-old female who is followed by Deanne TSAI for her primary care who presents to the emergency department for evaluation of feeling disoriented and abnormal with some difficulty speaking or finding words but no dysarthria or other motor deficit. In the ER she was found to have a negative head CT normal EKG and labs including cardiac enzymes and due to concern for TIA she was admitted to the hospital for further care. Apparently she was in her usual state of health and she was talking on the phone when she started having difficulty finding words and saying words but no actual dysarthria. Her came home within 15 minutes of this event and he noticed that she seemed disoriented. The total length of time that this occurred was approximately 22-40 minutes from beginning to end. In the ER she had no symptoms and they did not witness any clear neurologic abnormalities. The patient is very healthy in his not on any prescription meds except for vaginal estrogen. Past medical history: 1. Previous episode of confusion for which she had an MRI in July of 2021 this was normal 2. Osteoarthritis 3. Osteopenia 4. Cystocele 5. Uterine prolapse 6. Basal cell carcinoma Medications estrogen vaginal cream, multivitamin, vitamin-C, calcium, vitamin-D Allergies: Penicillin Past surgical history: 1. Bilateral tubal ligation 2. Mohs surgery for basal cell carcinoma on her face 3. Normal spontaneous vaginal delivery x1 Health related behavior. Patient has a distant history of smoking. Does not use alcohol on a regular basis and is fairly active Social history: Patient is She is retired Patient lives in and [facility] Patient has a daughter who lives in the area, [place]. Patient has 1 granddaughter Family history: Mom at 75 from metastatic cancer of unknown primary Dad at 68 from leukemia but has had bladder cancer prior Patient has a brother who is 84 and healthy Patient has a daughter who is healthy Review of systems is negative for any weight loss or weight gain. Negative for any fever chills, headache. Negative for any palpitations, lightheadedness or dizziness. No dysuria or hematuria. No change in bowel movements. No rashes. No cough. No chest pain or shortness of breath. No previous history of anxiety but does feel very overwhelmed with her surgery coming up and caring for her 94-year-old [id number] who they moved to this area in his living at [facility] and patient is in charge of her. When had a similar issue in July of 2021 is under a great deal of stress. Was worried about her memory at that time. Twelve point review of systems is otherwise negative [facility] Medical History Chicken pox Foot fracture Measles Mumps Osteoarthritis (~1999) Osteopenia Osteoporosis Subcutaneous mass of left lower extremity Social History household members: spouse Smoking Status: Former smoker Meds Home Medications and Allergies Home Medications Medication Instructions Recorded Confirmed Type estradiol 0.01% (0.1 mg/gram) See Rx Instructions .Route .COMPLEX 06/14/21 07/09/22 History vaginal cream ascorbic acid (vitamin C) 500 mg 500 mg PO 03/15/22 04/09/22 History capsule calcium 333.33 mg-vit D3 6.67 tab PO QAM 03/15/22 04/09/22 History mcg-magnes 32 mg-vit K2-min-herb tablet (Algae Based Calcium) multivitamin (Daily Multi-Vitamin 1 tab PO DAILY 03/15/22 07/09/22 History tablet) omega 8-uuc-tho-fish oil 300 1 cap PO DAILY 03/15/22 07/09/22 History mg-1,000 mg capsule (Fish Oil) Allergies Allergy/AdvReac Type Severity Reaction Status Date / Time Penicillins [PENICILLINS] Allergy Intermediate Verified 07/09/22 13:44 Exam Vital Signs (past 8 hours): - 07/09/22 12:11 07/09/22 12:56 07/09/22 13:44 Temperature 97.5 F L Pulse Rate 86 68 62 Respiratory Rate 18 16 16 Blood Pressure 184/91 H 159/76 H Pulse Oximetry 100 99 99 Oxygen Delivery Method Room Air Oxygen Flow Rate 07/09/22 13:45 07/09/22 13:45 07/09/22 14:00 Temperature Pulse Rate 63 69 Respiratory Rate Blood Pressure 170/85 H Pulse Oximetry 98 100 Oxygen Delivery Method Oxygen Flow Rate 07/09/22 15:01 07/09/22 15:12 Temperature 97.9 F 97.4 F L Pulse Rate 80 64 Respiratory Rate 16 16 Blood Pressure 165/76 H 130/65 Pulse Oximetry 97 98 Oxygen Delivery Method Room Air Oxygen Flow Rate 0 Oxygen Delivery Method Room Air Oxygen Flow Rate 0 Narrative Exam Narrative: Afebrile, vital signs are stable HEENT is unremarkable. 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 Neck is supple without adenopathy thyromegaly jugular venous distention or carotid bruit Chest: Clear to auscultation without wheezes rhonchi or crackles Cor: Regular rate and rhythm without a murmur, distant S1-S2 Abdomen: Positive bowel sounds, soft, nontender, nondistended Extremities: No edema pulses intact Neurologic exam is nonfocal. Cranial nerves 2-12 are grossly intact. Strength is 5/5 in all large muscle groups bilateral upper and lower extremities. Sensations intact to light touch Skin no rashes Objective Labs 07/09/22 13:19 07/09/22 13:19 Labs: Laboratory Results - last 24 hr 07/09/22 07/09/22 07/09/22 13:19 13:19 13:19 WBC 6.5 RBC 4.11 Hgb 13.1 Hct 40.1 MCV 97.4 MCH 31.9 MCHC 32.8 RDW 13.8 Plt Count 320 Neut % (Auto) 53.2 Lymph % (Auto) 38.4 [place] % (Auto) 5.0 Eos % (Auto) 2.6 Baso % (Auto) 0.8 Neut # (Auto) 3500 Lymph # (Auto) 2500 [place] # (Auto) 300 Eos # (Auto) 200 Baso # (Auto) 100 PT 11.6 INR 1.0 APTT 36 Sodium 138 Potassium 4.3 Chloride 102 Carbon Dioxide 31 BUN 14 Creatinine 0.53 Estimated GFR > 60 BUN/Creatinine Ratio 26.4 H Glucose 106 Calcium 9.2 Magnesium 2.1 Total Bilirubin 0.6 AST 25 ALT 31 Alkaline Phosphatase 88 Total Creatine Kinase 77 CK-MB (CK-2) TNP CK-MB (CK-2) Rel Index TNP Troponin I < 0.012 Total Protein 7.6 Albumin 4.5 Globulin 3.1 Albumin/Globulin Ratio 1.5 U Opiates 300ng/mL cut Ur Oxycodone Screen Urine Methadone Screen Ur Barbiturates Screen U Tricyclic Antidepress Ur Phencyclidine Scrn Ur Amphetamines Screen U Methamphetamines Scrn Ur MDMA Scrn (Ecstasy) U Benzodiazepines Scrn Urine Cocaine Screen U Marijuana (THC) Screen SARS-CoV-2 (PCR) 07/09/22 07/09/22 14:18 14:25 WBC RBC Hgb Hct MCV MCH MCHC RDW Plt Count Neut % (Auto) Lymph % (Auto) [place] % (Auto) Eos % (Auto) Baso % (Auto) Neut # (Auto) Lymph # (Auto) [place] # (Auto) Eos # (Auto) Baso # (Auto) PT INR APTT Sodium Potassium Chloride Carbon Dioxide BUN Creatinine Estimated GFR BUN/Creatinine Ratio Glucose Calcium Magnesium Total Bilirubin AST ALT Alkaline Phosphatase Total Creatine Kinase CK-MB (CK-2) CK-MB (CK-2) Rel Index Troponin I Total Protein Albumin Globulin Albumin/Globulin Ratio U Opiates 300ng/mL cut Negative Ur Oxycodone Screen Negative Urine Methadone Screen Negative Ur Barbiturates Screen Negative U Tricyclic Antidepress Negative Ur Phencyclidine Scrn Negative Ur Amphetamines Screen Negative U Methamphetamines Scrn Negative Ur MDMA Scrn (Ecstasy) Negative U Benzodiazepines Scrn Negative Urine Cocaine Screen Negative U Marijuana (THC) Screen Negative SARS-CoV-2 (PCR) Negative Assessment & Plan Assessment & Plan narrative: 72-year-old female with history cystocele and atrophic vaginitis as well as osteoarthritis and osteopenia who is admitted to the hospital for presumed TIA Plan: We will complete the workup. She is going to get an MRI/MRA, stroke protocol. She will get an echo. We will keep her overnight with telemetry. We will continue baby aspirin and Plavix. Patient has not been on aspirin prior to this. Will likely only continue dual platelet treatment for 3 weeks pending results and how patient does. We will monitor her blood pressure. We will check lipids in the a.m. Assessment 2. Elevated blood pressure on admit unclear etiology Plan: Will continue to monitor during hospitalization Assessment 3. Cystocele uterine prolapse without current symptoms Plan: Will continue to follow Assessment 4. Osteoarthritis. Patient is scheduled to have her left hip replaced by Dr. Willard September 19. Plan: Tylenol as needed Code status is full code 70minutes spent with patient discussing with physician, nursing, reviewing chart, meeting with patient formulating plan and documentation of plan
[2022-07-10 01:13] VITALS: BP 105/63; PULSE 75; RESP 18; TEMP 36.8; O2SAT 98
[2022-07-10 05:30] VITALS: BP 121/77; PULSE 70; RESP 18; TEMP 36.3; O2SAT 96
[2022-07-10 06:21] LABS: Add Manual Diff / Slide Review NO; Basophils Absolute Auto 0 /uL (0-100); Basophils Percent Auto 0.8 % (0-2); Eosinophils Absolute Auto 300 /uL (0-450); Eosinophils Percent Auto 4.9 % (2-4); Hemoglobin 13.4 g/dL (12.0-16.0); Lymphocytes Absolute Auto 2700 /uL (1100-4500); Lymphocytes Percent Auto 45.7 % (25-40); Mean Corpuscular HGB Conc 33.6 % (30-36); Mean Corpuscular Hemoglobin 32.3 PG (26-34); Mean Corpuscular Volume 96.1 fL (80-100); Monocytes Absolute Auto 400 /uL (0-900); Monocytes Percent Auto 6.3 % (3-14); Neutrophils Absolute Auto 2500 /uL (1500-7000); Neutrophils Percent Auto 42.3 % (50-75); Platelet Count 314 X10^3/uL (150-400); Red Blood Cell Count 4.16 X10^6/uL (4.0-5.2); Red Cell Distribution Width 13.8 % (11.6-14.8); White Blood Cell Count 5.9 X10^3/uL (4.5-11.0)
[2022-07-10 06:40] LABS: BUN Creatinine Ratio 26.9 (6-22); Blood Urea Nitrogen 14 mg/dL (7-17); Calcium 8.9 mg/dL (8.4-10.2); Carbon Dioxide 31 mmol/L (22-32); Chloride 101 mmol/L (98-107); Estimated Glomerular Filt Rate > 60 mL/min (>60); Glucose 94 mg/dL (80-110); HEMOLYSIS 26 (0-50); Potassium 4.1 mmol/L (3.4-5.1); Sodium 137 mmol/L (137-145)
[2022-07-10 09:00] VITALS: BP 113/63; PULSE 74; RESP 16; TEMP 36.3; O2SAT 100
--- NOTE | 2022-07-10 09:56 | PM.DS.1 ---
History of Present Illness History of Present Illness Chief complaint: Disoriented, feeling abnormal Narrative: This is a very pleasant 72-year-old female who is followed by Deanne TSAI for her primary care who presents to the emergency department for evaluation of feeling disoriented and abnormal with some difficulty speaking or finding words but no dysarthria or other motor deficit. In the ER she was found to have a negative head CT normal EKG and labs including cardiac enzymes and due to concern for TIA she was admitted to the hospital for further care. Apparently she was in her usual state of health and she was talking on the phone when she started having difficulty finding words and saying words but no actual dysarthria. Her came home within 15 minutes of this event and he noticed that she seemed disoriented. The total length of time that this occurred was approximately 22-40 minutes from beginning to end. In the ER she had no symptoms and they did not witness any clear neurologic abnormalities. The patient is very healthy in his not on any prescription meds except for vaginal estrogen. Past medical history: 1. Previous episode of confusion for which she had an MRI in July of 2021 this was normal 2. Osteoarthritis 3. Osteopenia 4. Cystocele 5. Uterine prolapse 6. Basal cell carcinoma Medications estrogen vaginal cream, multivitamin, vitamin-C, calcium, vitamin-D Allergies: Penicillin Past surgical history: 1. Bilateral tubal ligation 2. Mohs surgery for basal cell carcinoma on her face 3. Normal spontaneous vaginal delivery x1 Health related behavior. Patient has a distant history of smoking. Does not use alcohol on a regular basis and is fairly active Social history: Patient is She is retired Patient lives in [facility] Patient has a daughter who lives in the area, [place]. Patient has 1 granddaughter Family history: Mom at 75 from metastatic cancer of unknown primary Dad at 68 from leukemia but has had bladder cancer prior Patient has a brother who is 84 and healthy Patient has a daughter who is healthy Review of systems is negative for any weight loss or weight gain. Negative for any fever chills, headache. Negative for any palpitations, lightheadedness or dizziness. No dysuria or hematuria. No change in bowel movements. No rashes. No cough. No chest pain or shortness of breath. No previous history of anxiety but does feel very overwhelmed with her surgery coming up and caring for her 94-year-old [id number] who they moved to this area in his living at [facility] and patient is in charge of her. When had a similar issue in July of 2021 is under a great deal of stress. Was worried about her memory at that time. Twelve point review of systems is otherwise negative Discharge Providers Provider Date of admission: 07/09/22 14:01 Discharge Date: 07/10/22 Primary care physician: EULALIO Viramontes Consults: 07/09/22 13:56 Consult to Physician Urgent Comment: Consulting Provider: Ling Garcia Reason for consultation: TIA Has provider been notified: Yes Discharge provider: Ling Garcia MD Summary Hospital Course Discharge Diagnosis: Possible TIA, MRI/MRAs stroke protocol negative for infarct or vascular disease Confusion Anxiety Elevated blood pressure without the diagnosis of hypertension Hospital Course: Patient admitted to the hospital with complaints of feeling disoriented and confused and concern for possible TIA. CT in the ER was negative. Echo is pending. Telemetry was negative overnight. Labs and EKGs within normal limits. Blood pressure was elevated in the ER and then improve and a few elevated blood pressures last night. Patient without a history of elevated blood pressure. Patient with MRI MRA stroke protocol that was negative. Lab work unrevealing. Suspect patient has a component of anxiety. Will discharge home today follow up next week with PCP comment air and Rieger TSAI. No change in medications which patient is not taking. Recommend trial of medication for anxiety. Recommended Zoloft and discussed with her and she will think about it and discuss with PCP at follow-up. Her daughter is taking something I encouraged her to find out what she is on my and perhaps this would be beneficial for her as well. She will continue on aspirin a day that is her only change. I recommend that she have evaluation with neuropsychologist possible neurologist as an outpatient. Also recommend that she monitor her blood pressure. And follow-up with PCP next week. Call with elevated blood pressures. Status at Discharge Cognitive/behavioral status at discharge: oriented Functional status at discharge: independent ambulation Overall status at discharge: patient is back to baseline Exam Vital Signs (past 8 hours): - 07/10/22 05:30 07/10/22 09:00 Temperature 97.3 F L 97.3 F L Pulse Rate 70 74 Respiratory Rate 18 16 Blood Pressure 121/77 113/63 Pulse Oximetry 96 100 Oxygen Flow Rate 0 Oxygen Delivery Method Room Air Oxygen Flow Rate 0 Narrative Exam Narrative: Afebrile vital signs are stable HEENT unremarkable Neck is supple Chest clear to auscultation without wheezes rhonchi or crackles Cor: Regular rate and rhythm without a murmur Abdomen: Positive bowel sounds, soft, nontender, nondistended Extremities: No edema, pulses intact Neurologic exam nonfocal Objective Labs 07/10/22 05:55 07/10/22 05:55 Labs: Laboratory Results - last 24 hr 07/09/22 07/09/22 07/09/22 13:19 13:19 13:19 WBC 6.5 RBC 4.11 Hgb 13.1 Hct 40.1 MCV 97.4 MCH 31.9 MCHC 32.8 RDW 13.8 Plt Count 320 Neut % (Auto) 53.2 Lymph % (Auto) 38.4 [place] % (Auto) 5.0 Eos % (Auto) 2.6 Baso % (Auto) 0.8 Neut # (Auto) 3500 Lymph # (Auto) 2500 [place] # (Auto) 300 Eos # (Auto) 200 Baso # (Auto) 100 PT 11.6 INR 1.0 APTT 36 Sodium 138 Potassium 4.3 Chloride 102 Carbon Dioxide 31 BUN 14 Creatinine 0.53 Estimated GFR > 60 BUN/Creatinine Ratio 26.4 H Glucose 106 Calcium 9.2 Magnesium 2.1 Total Bilirubin 0.6 AST 25 ALT 31 Alkaline Phosphatase 88 Total Creatine Kinase 77 CK-MB (CK-2) TNP CK-MB (CK-2) Rel Index TNP Troponin I < 0.012 Total Protein 7.6 Albumin 4.5 Globulin 3.1 Albumin/Globulin Ratio 1.5 U Opiates 300ng/mL cut Ur Oxycodone Screen Urine Methadone Screen Ur Barbiturates Screen U Tricyclic Antidepress Ur Phencyclidine Scrn Ur Amphetamines Screen U Methamphetamines Scrn Ur MDMA Scrn (Ecstasy) U Benzodiazepines Scrn Urine Cocaine Screen U Marijuana (THC) Screen SARS-CoV-2 (PCR) 07/09/22 07/09/22 07/10/22 14:18 14:25 05:55 WBC 5.9 RBC 4.16 Hgb 13.4 Hct 40.0 MCV 96.1 MCH 32.3 MCHC 33.6 RDW 13.8 Plt Count 314 Neut % (Auto) 42.3 L Lymph % (Auto) 45.7 H [place] % (Auto) 6.3 Eos % (Auto) 4.9 H Baso % (Auto) 0.8 Neut # (Auto) 2500 Lymph # (Auto) 2700 [place] # (Auto) 400 Eos # (Auto) 300 Baso # (Auto) 0 PT INR APTT Sodium Potassium Chloride Carbon Dioxide BUN Creatinine Estimated GFR BUN/Creatinine Ratio Glucose Calcium Magnesium Total Bilirubin AST ALT Alkaline Phosphatase Total Creatine Kinase CK-MB (CK-2) CK-MB (CK-2) Rel Index Troponin I Total Protein Albumin Globulin Albumin/Globulin Ratio U Opiates 300ng/mL cut Negative Ur Oxycodone Screen Negative Urine Methadone Screen Negative Ur Barbiturates Screen Negative U Tricyclic Antidepress Negative Ur Phencyclidine Scrn Negative Ur Amphetamines Screen Negative U Methamphetamines Scrn Negative Ur MDMA Scrn (Ecstasy) Negative U Benzodiazepines Scrn Negative Urine Cocaine Screen Negative U Marijuana (THC) Screen Negative SARS-CoV-2 (PCR) Negative 07/10/22 05:55 WBC RBC Hgb Hct MCV MCH MCHC RDW Plt Count Neut % (Auto) Lymph % (Auto) [place] % (Auto) Eos % (Auto) Baso % (Auto) Neut # (Auto) Lymph # (Auto) [place] # (Auto) Eos # (Auto) Baso # (Auto) PT INR APTT Sodium 137 Potassium 4.1 Chloride 101 Carbon Dioxide 31 BUN 14 Creatinine 0.52 Estimated GFR > 60 BUN/Creatinine Ratio 26.9 H Glucose 94 Calcium 8.9 Magnesium Total Bilirubin AST ALT Alkaline Phosphatase Total Creatine Kinase CK-MB (CK-2) CK-MB (CK-2) Rel Index Troponin I Total Protein Albumin Globulin Albumin/Globulin Ratio U Opiates 300ng/mL cut Ur Oxycodone Screen Urine Methadone Screen Ur Barbiturates Screen U Tricyclic Antidepress Ur Phencyclidine Scrn Ur Amphetamines Screen U Methamphetamines Scrn Ur MDMA Scrn (Ecstasy) U Benzodiazepines Scrn Urine Cocaine Screen U Marijuana (THC) Screen SARS-CoV-2 (PCR) [facility] Medical History Chicken pox Foot fracture Measles Mumps Osteoarthritis (~1999) Osteopenia Osteoporosis Subcutaneous mass of left lower extremity Social History household members: spouse Smoking Status: Former smoker Discharge Assessment & Plan Assessment and Plan Assessment: Possible TIA, MRI/MRAs stroke protocol negative for infarct or vascular disease Confusion Anxiety Elevated blood pressure without the diagnosis of hypertension Plan of Treatment: DC home follow up with PCP next week Trial SSRI Monitor blood pressure Continue on a full aspirin daily until follow-up Neuropsych eval as follow-up Neurologist as follow-up Echo pending Discharge Plan Discharge Plan Patient Disposition: Home Discharge orders & Medications Prescriptions: Continued estradiol 0.01 % (0.1 mg/gram) cream See Rx Instructions .ROUTE .COMPLEX Rx Instructions: 1 g vaginally once weekly on Tuesdays multivitamin [Daily Multi-Vitamin] Tablet 1 tab PO DAILY omega 3-uwr-zwn-fish oil [Fish Oil] 300-1,000 mg capsule 1 cap PO DAILY Algae Based Calcium 333.33 mg-6.67 mcg-32 mg tablet PO QAM ascorbic acid (vitamin C) 500 mg capsule 500 mg PO Follow up/Referrals: Deanne Romero ARNP [Primary Care Provider] - Diet/Activity/Treatments Diet: Diet as Tolerated Visit Report/Discharge Packet Stand Alone Forms: Patient Portal/API, Stroke Signs & Symptoms Discharge Data Primary Care Provider: Deanne Romero Attending Provider: Ling Garcia Admit Date/Time: 07/09/22 14:01 Discharges patient from system. Discharge Date/Time: 07/10/22 09:56
--- NOTE | 2022-07-10 10:10 | PC.NURSE ---
Addendum entered by Leslye Tavera R.N. 07/10/22 10:54: Left unit via WC at approx 1100. Taken to car by this sheet writer. NO new MD scripts. Per Dr Garcia Pt to take 325mg aspirin daily. Original Note: Day shift: Paperwork signed and all questions answered. Pt has all personal belongings. Pt's Spouse is driving her home.
--- NOTE | 2022-07-10 11:36 | CM.DANOTE ---
Patient is a 72 yo female who was admitted on 07/09/22 for Confusion. Pt has [employer] [facility] ADV for insurance and her PCP is Deanne Romero. EMR was reviewed. Per MD, pt admitted for TIA r/o and to have an MRI and now medically stable to d/c home today with no identified barriers to discharge. CM Mail Inserter confirmed bedside with pt and RN that she has been independent in the room and steady with ambulation and no PT/OT orders for eval needed and pt feels comfortable with discharging home today via spouse POV and no needs anticipated. Plan: Patient to d/c home this morning via spouse POV and outpt f/u with PCP and no further identified discharge planning needs. JUNI Venegas
[2022-07-11 05:24] LABS: Cholesterol HDL Ratio 2.7 ratio (0.0-4.4); Cholesterol,Total 282 mg/dL (100-199); HDL Cholesterol 104 mg/dL (>39); LDL Cholesterol Cal 162 mg/dL (0-99); Triglycerides 97 mg/dL (0-149); VLDL Cholesterol Cal 16 mg/dL (5-40)
== END 2022-07-10 11:07 | disposition home or self-care (01) ==
LOC: ED 13:42 → AC 14:02
PROVIDERS: Admitting Provider Family Medicine; Emergency Provider Emergency Medicine; Family Provider Internal Medicine; PCP Internal Medicine; Referring Provider Emergency Medicine; Visit Provider Family Medicine
DX: R41.0 Disorientation, unspecified (principal); Z20.822 Contact with and (suspected) exposure to COVID-19; R29.700 NIHSS score 0; F41.9 Anxiety disorder, unspecified; R03.0 Elevated blood-pressure reading, without diagnosis of hypertension
CPT/HCPCS: 36415; 70450; 70548; 70553; 71045; 80048; 80053; 80061; 80305; 81003; 82550; 82962; 83735; 84484; 85025; 85610; 85730; 87635; 93005; 93010; 93306; 99284; C9803; G0378; A9579

== ENCOUNTER 2022-09-19 06:10 | Day surgery (SDC) | payer OTHER, SELFPAY ==
[2022-07-09 15:26] VITALS: BMI 19.3
[2022-09-09 08:45] VITALS: BMI 18.8
[2022-09-19] VITALS (13 sets, daily range): BP systolic 91–152; BP diastolic 55–74; PULSE 57–651; RESP 12–21; TEMP 35.7–36.9; O2SAT 95–100; BMI 18.8; BMI 21.4
--- NOTE | 2022-09-19 | DI.RAD.S_ITS ---
PROCEDURE: XR HIP W PEL IF DONE LT 2V INDICATIONS: POST OP TECHNIQUE: AP pelvis and lateral view of the left hip acquired. COMPARISON: [facility], [place], XR HIP W PEL IF DONE LT 2V, 09/19/2022, 9:38. FINDINGS: Bones: Patient is status post left hip arthroplasty, with hardware components in expected positions. The hip joint appears congruent. The visualized bony structures appear intact. Soft tissues: Overlying postoperative changes are noted. No suspicious soft tissue densities. IMPRESSION: Postop changes from left total hip arthroplasty with anatomic left hip alignment. Dictated by: Shorty Swartz M.D. on 09/19/2022 at 10:40 Approved by: Shorty Swartz M.D. on 09/19/2022 at 10:40
[2022-09-19] MEDS: LACTATED RINGERS 1,000 ML 84 ML IV ×2 (06:57→10:57)
--- NOTE | 2022-09-19 07:02 | DI.RAD.S_ITS ---
PROCEDURE: XR HIP W PEL IF DONE LT 2V INDICATIONS: TOYA TECHNIQUE: 5 intraoperative fluoroscopic views of the left hip acquired. COMPARISON: [facility], CR, XR HIP W PEL IF DONE LT 2V, 05/13/2022, 12:58. FINDINGS: Intraoperative fluoroscopic images shows left total hip arthroplasty in progress. IMPRESSION: Fluoro guidance was provided intraoperatively for left total hip arthroplasty. Dictated by: Shorty Swartz M.D. on 09/19/2022 at 10:17 Approved by: Shorty Swartz M.D. on 09/19/2022 at 10:17
[2022-09-19] MEDS: ACETAMINOPHEN 325 MG TABLET 975 MG PO (07:10)
[2022-09-19] MEDS: VANCOMYCIN 1,000 MG/200 ML PIGGYBACK 200 MG IV (07:10)
[2022-09-19] MEDS: CELECOXIB 200 MG CAPSULE PO (07:10)
--- NOTE | 2022-09-19 07:29 | PM.PREOP ---
Pre-operative Note Interval Note History & Physical reviewed/Exam performed by Physician: Yes Changes to H&P: No
--- NOTE | 2022-09-19 07:30 | P.OP_ITS ---
Operative Date/Time/Diagnoses Date of procedure: 09/19/22 Time of procedure: 07:55 Pre-op diagnosis: Left hip OA Post-op diagnosis: same Procedure & Clinicians Procedure: Left total hip arthroplasty anterior approach Same procedure as scheduled: Yes Indications: The patient has had progressively worsening left hip pain with radiographic aponte ges consistent with arthritis. Non-operative management has failed and the patient has requested total hip replacement. The risks, benefits and alternatives to surgery were discussed with the patient prior to proceeding. Risks discussed included, but were not limited to, failure to relieve pain, leg length discrepancy, dislocation, stiffness, infection, nerve damage, deep venous thrombosis, pulmonary embolism, stroke, coma, heart attack, permanent paralysis and , as well as the potential need for eventual revision of the prosthetic. Surgeon: Sheila Willard Front End Application Developer: Petey Nice Anesthesia Type: Spinal Operative Notes Findings: Severe left hip osteoarthritis, adequate stability adequate bone Closure Type: primary Prosthetic devices, grafts, tissues, transplants, or devices: [employer]ard [employer]hew size 50 R3 cup, neutral poly liner,one 6.5 mm screw, size 1 polar stem, 32 x -3 cobalt chromium head Estimated Blood Loss (mL): 250 Blood products transfused: none Procedure in detail: The patient was brought to the operating room. Patient was carefully positioned in the supine position. Time-out was performed and antibiotics were given. Anesthesia was induced. She was positioned in the on the table in order to allow hyperextension of the hip. The left lower extremity was prepped and draped in a standard sterile fashion. An anterior left hip incision was made 1 fingerbreadth lateral to the anterior superior iliac spine and extended distally towards the greater trochanter. Dissection was carried out through skin and subcutaneous tissues. Superficial hemostasis was achieved. The fascia over the tensor fascia rosalind was defined and incised with a knife. Two Allis clamps were used to grasp the fascia. Tensor fascia rosalind was retracted laterally. A gelpi retractor was placed. Dissection was carried out down along the neck. The circumflex vessels were carefully identified and cauterized with the Aqua Mantis. A PA was used throughout the procedure and was critical for intraoperative positioning and safe implantation of the components. There was good visualization of the femoral neck. A Cobra was placed superior to the neck and the gluteus fibers were carefully stripped from that superior aspect of the capsule. A 2nd retractor was placed along the inferior aspect of the neck. The rectus insertion along the capsule was partially released. A 3rd retractor that was then gently placed over the rim of the acetabulum under the rectus. Capsule was carefully incised and released from the intertrochanteric line circumferentially superior to the mid sagittal line and inferiorly to the mid sagittal line until the lesser trochanter was palpable. A tag stitch was placed both in the superior and inferior limb of the capsular insertion. Along the acetabulum capsule was also released up to the mid sagittal 12:00 position. A portion of the labrum was resected. A saw was used to perform an osteotomy at the level of the intertrochanteric line and the junction of the superior femoral neck leaving approximately 1 finger breath of residual inferior neck above the lesser trochanter. A 2nd cut was made along the femoral neck at the base of the head and a napkin ring of neck was removed. Corkscrew was placed in the femoral head and the head was removed without difficulty. Retractors were then repositioned around the acetabulum. Residual labrum was resected and additional osteophytes were removed. A reamer that was 4 mm below the templated size was placed by hand in the acetabulum and it was reamed to centralize the acetabulum. It was then reamed up to 2 under the templated size and fluoroscopy was brought in to confirm the position of the reaming and depth of reaming. I reamed 1 under the anticipated size. A trial cup was placed and noted that it was appropriately sized and fluoroscopy confirmed position and depth. The component was open and inserted without difficulty fluoroscopic imaging was used to confirm that the cup had been adequately seated and was well positioned. It was further stabilized with a single screw. Neutral poly liner was placed. The cup was tested and noted to be stable. Attention was then directed to the femur. The femur was gently hyperextended additional capsular release was performed as needed in order to allow adequate visualization of the proximal femur with elevation of the femur. Patient was placed in a hyperextended slightly adducted position with maximum external rotation. Box osteotome was used to check for any residual neck as well as sclerotic bone along the trochanter. [place] pepper was placed in the femur. Additional broaching was performed. Canal finder was used to determine the al ignment of the canal and position. Size 1 broach was placed. The canal was then appropriately broached up to the templated size as long as there was adequate stability of the broach and serial advancement of the broach without excessive impingement. Specific attention was directed at avoiding varus attempting to direct the distal aspect of the broach more anteriorly and avoiding excessive anteversion. Trial reduction showed acceptable range of motion, good stability, no posterior impingement, sikh of leg length and appropriate lateral shuck. I also hyperflexed the hip and checked that there was no impingement anteriorly and there was good stability with flexion, adduction and internal rotation. Marcaine and Exparel were injected. The stem was placed without difficulty. Repeat trial reduction and x-ray showed acceptable overall position, length, and no evidence of the femoral fracture. Final head was placed. Wound was meticulously irrigated with normal saline. The hip was reduced and additional Exparel and Marcaine were injected. The capsule was closed with interrupted nonabsorbable sutures. The fascia of the tensor was closed with interrupted and running Vicryl. No drain was placed. Any tensor fascia rosalind muscle that appeared to be contused or injured which was a minimal amount was carefully resected. Capsule around the tensor was injected with Exparel and Marcaine. The skin was closed with barbed stitches for the subcutaneous tissue and skin. We also used surgical glue. The wound was dressed sterilely. Brief Betadine soak was also used and was meticulously irrigated with normal saline. Patient was transferred to recovery room in satisfactory condition. Complications: none Post-operative Condition: stable Disposition: Acute Care Plan for aftercare: The patient will be maintained on a standard total hip replacement protocol with weight bearing as tolerated and anterior hip precautions. The patient will receive Aspirin and sequential compression devices for DVT prophylaxis. The patient will be discharged home when safe for the home environment.
[2022-09-19] MEDS: CEFAZOLIN 2 GM/100 ML PREMIX 100 ML IV ×3 (08:01→23:21)
--- NOTE | 2022-09-19 08:26 | SUR.OPER ---
Supine on padded [place] table with bilateral legs secured in padded positioning boots and suspended in positioning spars, operative leg in traction per surgeon. Head on one pillow. Arm on non-operative side secured on padded armboard <90 degrees abduction. Arm on operative side padded and resting across chest then secured with tape over sheet. Padded perineal post in place per surgeon.
[2022-09-19] MEDS: BUPIVACAINE LIPOSOME 266 MG/20 ML VIAL INJ (08:30)
[2022-09-19] MEDS: BUPIVACAINE 0.5% (PF) 30 ML, EPINEPHrine 0.15 MG INJ (08:33)
--- NOTE | 2022-09-19 11:11 | SUR.PHASEI ---
Pt transferred to room 2004 by Real ALBERTO with one belongings bag.
[2022-09-19] MEDS: ACETAMINOPHEN 325 MG TABLET 650 MG PO ×3 (12:09→23:19)
[2022-09-19] MEDS: IBUPROFEN 400 MG TABLET PO ×3 (12:09→23:19)
[2022-09-19] MEDS: LACTATED RINGERS 1,000 ML 100 ML IV (12:09)
--- NOTE | 2022-09-19 12:37 | PC.NURSE ---
Pt arrived from ED at 1100, A&Ox4, no c/o pain, dressing to L hip c/d/i, ice pack in place. UE CMS intact, numbness and tingling to LE bilat but able to move feet and feel sensation. Lung sounds CTA, bowel sounds hypoactive. Pt oriented to room and call light, bed in low position, SCDs on, bed alarm activated.
--- NOTE | 2022-09-19 14:58 | PT.IIE ---
Current Diagnoses Unilateral post-traumatic osteoarthritis, left hip (09/19/22) Surgery Performed Operation Date: 09/19/22 07:45 Actual Procedures p Total Hip Arthroplasty/Anterior Approach(Left) - Sheila Willard MD Surgical History (Last Updated 09/09/22 @ 09:15 by Julia Haley, RN) History of bilateral tubal ligation History of surgery Hx of dilation and curettage Medical History (Last Updated 09/09/22 @ 09:13 by Julia Haley RN) Anxiety Chicken pox Foot fracture History of Mohs micrographic surgery for skin cancer Measles Mumps Osteoarthritis (~1999) Osteopenia Osteoporosis Subcutaneous mass of left lower extremity Physical Therapy Inpatient Evaluation/Re-Eval M1 PT/OT-IP Prior Functional Status Start: 09/19/22 17:41 Freq: NEEDED Status: Active Protocol: Document 09/19/22 14:58 AB (Rec: 09/19/22 17:56 AB [id number]) Medical Review Prior Functional Status Medical History Reviewed Yes Communication able to make needs known Mobility and Gait pt stated that she is independent with all mobilities and ambulation without AD Social History Household Members spouse Living Arrangements House Number of Floors (Floors) Two Floors Number of Stairs To Enter/Railing? pt plans to stay on the main level of the house has 2 platform steps to enter from the back of the house Home Environment Standard Height Toilet,Tub/ Shower Home Equipment Front Wheel Walker,Four Wheel Walker,Straight Cane M2 PT-IP Current Condition Start: 09/19/22 17:41 Freq: NEEDED Status: Active Protocol: Document 09/19/22 14:58 AB (Rec: 09/19/22 17:56 AB [id number]) Physical Therapy Current Condition Current Condition Evaluation Date 09/19/22 Treatment Diagnosis s/p L TOYA anterior approach; difficulty in walking Onset Date 09/19/22 M3 PT-IP Subjective Start: 09/19/22 17:41 Freq: NEEDED Status: Active Protocol: Document 09/19/22 14:58 AB (Rec: 09/19/22 17:56 AB [id number]) Subjective Physical Therapy Visit Type Type Initial Evaluation Visit Start Time 14:58 Visit Stop Time 16:20 Total Visit Minutes 82 Number of SEPTIC TANK SERVICER Visits 0 Physical Therapy Visit Comments Patient Comments agreeable to do PT Therapy Pain Assessment Pain When Pain Assessed At Rest Pain Present Pain Present Pain Reported Location Left Hip Intensity 4 Scale Used Numeric (0 - 10) Pain Management Techniques Apply Cold,Distraction, Modification of Treatment,Re- positioning,Timing of Activity with Medications M4 PT-IP Mobility and Gait Start: 09/19/22 17:41 Freq: NEEDED Status: Active Protocol: Document 09/19/22 14:58 AB (Rec: 09/19/22 17:56 AB [id number]) PT-Bed Mobility Assessment Supine to Sit Supine to Sit Standby Assistance PT-Transfer Assessment Sit to and From Stand Sit to and from Stand Contact Guard Assistance,1 Person Assistance,Use of Upper Extremities Equipment Transfer Assistive Device Gait Belt,Front Wheeled Walker Orthotic/Prosthetic Devices or Brace: No Transfers Transfer Destination Toilet Transfer Technique ambulated Transfer Ability Level of Assist Contact Guard Assistance,1 Person Assistance,Use of Upper Extremities Comments Mobility Comments pt agreeable to do PT. pt hoping to go home today. BP: 118/64. educated on anterior hip precautions but continues to require cues to recall and for carryover during activities. pt requesting to use the toilet. completed supine to sit and with difficulty moving LE to EOB. instructed to lie back down. educated pt on techniques for supine to sit and pt completed SBA with max cues. able to sit on EOB SBA. no c/o dizziness. BP: 107/58 . completed sit to stand CGA and ambulated to the toilet using FWW CGA. sit to stand from the toilet using grab bar CGA and ambulated towards the sink using FWW CGA. able to stand by the sink CGA while completing handwashing. pt ambulated to sit on the chair. educated on stair climbing techniques. ambulated ~ 30 ft using FWW SBA to CGA towards the platform step and completed up/down step using FWW CGA with max cues for techniques. repeated again with min cues. ambulated in the hallway ~ 30 ft FWW SBA to CGA but requiring cues for hip precautions. pt sat on the chair. reviewed precautions and stair climbing techniques but pt was having difficulty recalling and needs cues. pt agreed to do caregiver training tomorrow and set up for spouse to come in at 930 am. informed nurse. Gait Assessment Gait Gait Assistance Required: Standby Assistance,Contact Guard Assist Distance (Feet) 30 Able to Maintain Weight Bearing Status Yes During Gait Assistive Devices Assistive Device Gait Belt,Front Wheeled Walker Orthotic/Prosthetic Devices or Brace: No Gait Deviations General Gait Pattern Decreased Feet Clearance, Narrow Based Gait Factors Limiting Gait Function Factors Limiting Gait Function Decreased Activity Tolerance, Decreased Sensation,Decreased Strength,Difficulty Following Directions,Limited Range of Motion,Pain,Poor Balance,Poor Safety Awareness Stair Climbing Assessment Evaluation Level of Assist On Stairs Contact Guard Assistance,1 Person Assistance Devices Stair Climbing Assistive Devices Front Wheel Walker Technique/Endurance Stair Climbing Direction Ascend and Descend Stair Climbing Technique Step to Step Number of Steps Climbed 1 Query Text: Stair Climbing Set # Repetitions (reps) 2 PT-Balance Assessment Sitting Balance and Reactions Static Sitting Balance Ability Normal Dynamic Sitting Balance Ability Normal Standing Balance and Reactions Static Standing Balance Ability Fair Dynamic Standing Balance Ability Fair Device Used FWW M5 PT-IP Objective Assessments Start: 09/19/22 17:41 Freq: NEEDED Status: Active Protocol: Document 09/19/22 14:58 AB (Rec: 09/19/22 17:56 AB [id number]) Orientation Orientation/Cognition Level of Alertness Alert Orientation Name,Place,Situation Language Function Ability No Deficits Noted Safety Awareness Decreased Safety Awareness Memory Description Short Term Impaired Gross Range of Motion Lower Extremity ROM Assessment Within Functional Limits Strength Lower Extremity Strength Assessment Left Impaired Hip 3+/5 Knee 4-/5 Sensation Assessment Sensation Gross Sensation Left LE Impaired Sensation Description Numbness Comments Sensation Comments chronic L anterior thigh numbness Muscle Tone Muscle Tone WNL Yes M6 PT-IP Treatment Start: 09/19/22 17:41 Freq: NEEDED Status: Active Protocol: Document 09/19/22 14:58 AB (Rec: 09/19/22 17:56 AB [id number]) Physical Therapy Treatment Exercises Exercises Heel Slides Education Education Provided Precautions,Weight Bearing Status,Post-Op Packet,Safety M7 PT-IP Assessment and Plan Start: 09/19/22 17:41 Freq: NEEDED Status: Active Protocol: Document 09/19/22 14:58 AB (Rec: 09/19/22 17:56 AB [id number]) PT Summary Assessment and Plan Potential Rehabilitation Potential Fair Status of Condition at Evaluation Evolving Summary Impairments Pain,ROM,Strength,Balance, Coordination,Sensation,Tone, Cognition,Bed Mobility, Transfers,Gait,Activity Tolerance Assessment Summary pt s/p L TOYA anterior approach POD 0. pt requiring SBA to CGA with ambulation using FWW but requires cues for hip precautions and safety. Caregiver training set up for tomorrow at 930 am. will continue to assess progress. pt stated that she has outpt PT set up. Goals Bed Mobility Goal Independent Transfer Goal Independent,Front Wheeled Walker Gait Goal Independent,Front Wheel Walker Gait Distance 250 Other Goals up/down 2 platform steps using FWW SBA Days to Meet Goals 5 Frequency of Treatment Frequency Of Treatment Twice a Day Treatment Plan Physical Therapy Treatment Plan Bed Mobility Training,Transfer Training,Gait Training, Therapeutic Exercise,Balance Retraining,Post Op Education, Discharge Planning,Hot or Cold Pack,Neuromuscular Re-ed, Coordination Retraining,Manual Therapy Other Recommendations and Next Treatment Caregiver trainin/30 @ 930 Focus am Precautions Anterior Hip Precautions No Hip Extension,No Hip External Rotation Weight Bearing Status Weight Bearing Status Weight Bear as Tolerated Allowed Weight Bearing Amount (enter % LLE WBAT or #) (%) Recommendations To Nursing Amount of Assist Needed 1 Person Assist Discharge Recommendations PT Discharge Recommendations Home with Assistance, Outpatient PT Transportation Needs at Discharge Private Vehicle
[2022-09-19] MEDS: DOCUSATE 100 MG CAPSULE PO (20:37)
[2022-09-19] MEDS: ASPIRIN EC 81 MG TABLET PO (20:37)
[2022-09-20] MEDS: SODIUM CHLORIDE 0.9% FLUSH 10 ML IV (00:03)
[2022-09-20 03:37] VITALS: BP 120/56; PULSE 68; RESP 16; TEMP 36.3; O2SAT 99
[2022-09-20] MEDS: IBUPROFEN 400 MG TABLET PO ×2 (03:37→07:07)
[2022-09-20] MEDS: ACETAMINOPHEN 325 MG TABLET 650 MG PO ×2 (04:35→10:49)
[2022-09-20 06:04] LABS: Hematocrit 30.9 % (36-46); Hemoglobin 10.7 g/dL (12.0-16.0)
--- NOTE | 2022-09-20 07:14 | P.DS_ITS ---
History of Present Illness History of Present Illness Date Patient Seen: 09/20/22 Time Patient Seen: 07:15 Chief complaint: LT TOYA *OPB* Narrative: Operative Date/Time/Diagnoses Date of procedure: 09/19/22 Time of procedure: 07:55 Pre-op diagnosis: Left hip OA Post-op diagnosis: same Procedure & Clinicians Procedure: Left total hip arthroplasty anterior approach Same procedure as scheduled: Yes Indications: The patient has had progressively worsening left hip pain with radiographic changes consistent with arthritis. Non-operative management has failed and the patient has requested total hip replacement. The risks, benefits and alternatives to surgery were discussed with the patient prior to proceeding. Risks discussed included, but were not limited to, failure to relieve pain, leg length discrepancy, dislocation, stiffness, infection, nerve damage, deep venous thrombosis, pulmonary embolism, stroke, coma, heart attack, permanent paralysis and , as well as the potential need for eventual revision of the pro sthetic. Surgeon: Sheila Willard Poultry Farm Laborer: Petey Nice Anesthesia Type: Spinal Operative Notes Findings: Severe left hip osteoarthritis, adequate stability adequate bone Closure Type: primary Prosthetic devices, grafts, tissues, transplants, or devices: Willard [employer]hew size 50 R3 cup, neutral poly liner,one 6.5 mm screw, size 1 polar stem, 32 x -3 cobalt chromium head Estimated Blood Loss (mL): 250 Blood products transfused: none Discharge Providers Provider Discharge Date: 09/20/22 Primary care physician: EULALIO Viramontes Consults: 09/19/22 07:02 Consult to Anesthesiology Routine Comment: Consulting Provider: Anesthesiologist Reason for consultation: Regional block for post operative pain control 09/19/22 10:57 Consult to Discharge Planning Routine Comment: Consult to Occupational Therapy Evaluate & Treat Comment: Physician Instructions: Evaluate and treat Consult to Physical Therapy Evaluate & Treat Comment: Physician Instructions: post op TOYA protocol Discharge provider: Yvette Mauricio PA-C Summary Hospital Course Discharge Diagnosis: Left hip osteoarthritis, s/p left total hip arthroplasty Hospital Course: Ms Ni's hospital course was unremarkable. On POD# 1, she was feeling well and wanted to go home after caregiver training w/ PT. She was eating and voiding without difficulty and her pain was well-controlled with non-narcotic medication. Exam Vital Signs (past 8 hours): - 09/20/22 03:37 Temperature 97.3 F L Pulse Rate 68 Respiratory Rate 16 Blood Pressure 120/56 L Pulse Oximetry 99 Oxygen Flow Rate 0 Oxygen Delivery Method Room Air Oxygen Flow Rate 0 Narrative Exam Narrative: 5/5 strength in hip flexors, quadriceps, hamstrings, DF, PF, EHL on left. Sensation to light touch intact throughout LLE. Calf soft, compressible, nontender and without palpable cords or masses. Aquacel dressing CDI. Objective Labs 09/20/22 05:42 Labs: Laboratory Results - last 24 hr 09/20/22 05:42 Hgb 10.7 L Hct 30.9 L PFSH Medical History (Updated 09/09/22 @ 09:13 by Julia Haley RN) Anxiety Chicken pox Foot fracture History of Mohs micrographic surgery for skin cancer Measles Mumps Osteoarthritis (~1999) Osteopenia Osteoporosis Subcutaneous mass of left lower extremity Surgical History (Updated 09/20/22 @ 07:16 by Yvette Mauricio PA-C) History of bilateral tubal ligation History of surgery Hx of dilation and curettage Social History household members: spouse Smoking Status: Former smoker alcohol intake: current Discharge Assessment & Plan Assessment and Plan Assessment: Left hip osteoarthritis, s/p left total hip arthroplasty Plan of Treatment: Discharge home after PT, multimodal pain control, ASA BID x 6 weeks for VTE prophylaxis, f/u in office in 2 weeks as scheduled. Discharge Plan Discharge Plan Patient Disposition: Home Discharge orders & Medications Discharge Orders: Discharge (Order); Ordered 09/20/22 Ordered By: Yvette Mauricio Prescriptions: New acetaminophen 325 mg Tablet 650 mg PO Q6H Qty: 240 0RF docusate sodium 100 mg Capsule 100 mg PO BID PRN (Reason: constipation) Qty: 60 1RF ibuprofen 400 mg Tablet 400 mg PO Q4H Qty: 120 0RF oxycodone 5 mg Tablet 5 mg PO Q3H PRN (Reason: Pain, Moderate (4-6)) Qty: 30 0RF Continued estradiol 0.01 % (0.1 mg/gram) cream See Rx Instructions .ROUTE .COMPLEX Rx Instructions: 1 g vaginally once weekly on Tuesdays multivitamin [Daily Multi-Vitamin] Tablet 1 tab PO DAILY omega 2-uey-jpw-fish oil [Fish Oil] 300-1,000 mg capsule 1 cap PO DAILY Algae Based Calcium 333.33 mg-6.67 mcg-32 mg tablet 1 tab PO QAM ascorbic acid (vitamin C) 500 mg capsule 500 mg PO DAILY aspirin 325 mg Tablet 325 mg PO DAILY sertraline [Zoloft] 25 mg Tablet 25 mg PO DAILY Follow up/Referrals: Deanne Romero ARNP [Primary Care Provider] - Sheila Willard MD [Physician] - As previously scheduled (Follow up with Gail Trujillo PA-C, on 10/04/2022 @ 3:30 pm at [facility] in [place].) Diet/Activity/Treatments Diet: Diet as Tolerated Activity: Weight bearing as tolerated to left leg. Anterior hip precautions. Skin/Wound/Dressing Care Report to your healthcare provider any signs of infection, such as:: chills, fever, night sweats, unusual drainage and unusual redness Dressing: May shower. Leave dressing in place until follow up in office. No bathing or otherwise soaking incision. Call the office if the dressing becomes saturated inside. Visit Report/Discharge Packet Instructions: DI for Hip Replacement Stand Alone Forms: Patient Portal/API, Surgery Discharge Discharge Data Primary Care Provider: Deanne Romero Attending Provider: Sheila Willard Quality VTE Deep Vein Thrombosis/Pulmonary Embolism Present on Admission: No
[2022-09-20 08:00] VITALS: BP 100/57; PULSE 69; RESP 17; TEMP 36.6; O2SAT 98
[2022-09-20] MEDS: FISH OIL 1,000 MG CAPSULE 1000 MG PO (08:10)
[2022-09-20] MEDS: MULTIVITAMIN 1 TABLET 1 TAB PO (08:10)
[2022-09-20] MEDS: ASPIRIN EC 81 MG TABLET PO (08:10)
[2022-09-20] MEDS: ASCORBIC ACID 500 MG TABLET PO (08:11)
[2022-09-20] MEDS: SERTRALINE 50 MG TABLET 25 MG PO (08:11)
[2022-09-20] MEDS: DOCUSATE 100 MG CAPSULE PO (08:11)
--- NOTE | 2022-09-20 08:54 | CM.DANOTE ---
DCP: Case received, EMR reviewed and met with patient. Introduced self and role. Was able to obtain information regarding patient's baseline activity level prior to her surgery. DCP assessment completed with information currently available. Patient is a 72 year old female who admitted yesterday morning to the care of the orthopedic team. PCP: EULALIO Viramontes. Payer: confirmed: [employer] Medicare Advantage. Patient came to the hospital via private vehicle for a surgical procedure. Patient had left total hip anterior arthroplasty. Patient has history of left hip osteoarthritis. Met with patient in her room. She was sitting up in her chair, alert. Confirmed that she resides here in [place] with spouse, Faustino. She is independent at her baseline. P: Patient has discharge orders for home today, she did work with P.T. yesterday, and will do so again before she discharges. She is set up with outpatient P.T, here at [facility]. Agnes Wilkes RN/School Administrator Discharge Planning/Care Management CM Discharge Assessment Start: 09/20/22 08:52 Freq: Status: Active Protocol: Document 09/20/22 08:52 (Rec: 09/20/22 08:54 [id number]) Discharge Planning Assessment Assigned Tnt Powder Worker Agnes Wilkes RN/School Administrator Advance Directives? No History Provided By Patient,Medical Record Prior Living Arrangements House Household Members spouse Type of transporation used prior to Drives own vehicle admit Independent with ADL's Yes Is patient alert and oriented? Yes Caregiver for Another No Barriers to Discharge No Discharge Plan Home Transportation Arrangement Spouse Referrals Initiated None needed Whiteboard Updated in Patient Room with Yes name and ext. # of Tnt Powder Worker Review Status In Process Next Review Type Continued Stay Review Pre-Anesthesia Assessment Start: 09/09/22 08:45 Freq: Status: Complete Protocol: Document 09/09/22 08:45 CAB (Rec: 09/09/22 09:27 CAB [id number]) Pre-Anesthesia Assessment Preferred Name Justa Patient Information Reviewed Via Phone Assessment Assessment Completed With Patient Diagnostic Results BMP/CMP,CBC,EKG Comment Outside labs scanned, EKG @ 07/09/22 Primary Care Provider Deanne Romero Seen Specialist in Last 12 Months Yes Specialist Seen Emergency,Orthopedist Primary Language Kittitian Preferred Language Kittitian Technical Mgr Required No Height 5 ft 2 in Weight 103 lb Body Mass Index (BMI) 18.8 Hearing Ability Normal Visual Assist Glasses Dentition Type Teeth, Natural Present Barriers to Learning None Other Aids No Hx Anesthesia Reactions No Hx Family Anesthesia Reaction No Hx Malignant Hyperthermia No Hx Blood Transfusions No Anesthesia Review Requested No Radio Division Captain No alcohol intake current alcohol intake frequency a few times a week Smoking Status Former smoker Substance Use Type does not use Pain Present Pain Reported Musculoskeletal Symptoms Abnormal Gait,Difficulty Walking,Joint Pain History of Falling (Recent or History of No ) Patient is completely paralyzed or No completely immobile Mental Status Oriented to own ability Is patient on oxygen? No Does patient have CHRISTENSEN/SOB No Hx Sleep Apnea No Currently Taking a Beta Nick No Can You Climb a Flight of Stairs Without Yes SOB Hx Chest Pain No Hx SOB No Hx Syncope or Dizziness No Anti-Coagulant Therapy No Has a Rotor Winder No Cardiac Testing No Hx Pacemaker/ICD No Pacemaker Rep Required? No Cardiac Clearance Received Not Applicable Diet Type At Home Regular Dysphagia No Gastrointestinal Symptoms None Chronic UTI No Urinary Catheter Present No Hx Urinary Self Catheterization No Diabetes No HgbA1C 5.8 Date 06/10/22 Patient No Lactating No Hx Drug Resistant Organism No Presence of External or Internal Medical No Devices Received a COVID vaccine? Yes: x2 moderna booster Received all doses? Yes Marital Status Lives With spouse Current Living Arrangements House Number of Floors (Floors) Two Floors Number of Stairs To Enter/Railing? 2 Support System Spouse Does the Patient Have Assistance After Yes Surgery Patient Discharge Plan Description Return Home Comment Pt advised possible same day surgery per surgeon Feels Safe in Current Environment Yes Been Physically Hurt or Threatened By a No Person in Current Environment Do you have thoughts of harming yourself None or others? Are you currently considering suicide? No Do you have a plan to hurt yourself or No Plan others? Do You Have Any Spiritual Beliefs That No May Affect Your HC Choices? Do You Have Any Cultural Practices That No May Affect Your HC Choices? Comment Oriental Orthodox Who Can We Speak to About Patient's Care Family, friends Identifying Code for Release of Patient Declines to issue Information Health Care Proxy/Next of Kin Faustino () Health Care Proxy Emergency Contact Name Faustino () Emergency Contact Advance Directives? No Power of Food Beverage Attendant No PAC Instructions Do not shave/clip surgical site,Durable medical equipment ,Medications to take/avoid, Nasal antibiotic,No ETOH/ petroleum product on skin DOS, NPO,Pre-surgical wash,Sensory aids,Sturdy shoes/comfortable clothes,Do not bring valuables and remove jewelry
--- NOTE | 2022-09-20 09:37 | PT.IPTN ---
Current Diagnoses Unilateral post-traumatic osteoarthritis, left hip (09/19/22) Presence of unspecified artificial hip joint (09/19/22) Surgery Performed Operation Date: 09/19/22 07:45 Actual Procedures p Total Hip Arthroplasty/Anterior Approach(Left) - Sheila Willard MD Physical Therapy Treatment Note M2 PT-IP Current Condition Start: 09/19/22 17:41 Freq: NEEDED Status: Active Protocol: Document 09/19/22 14:58 AB (Rec: 09/19/22 17:56 AB [id number]) Physical Therapy Current Condition Current Condition Evaluation Date 09/19/22 Treatment Diagnosis s/p L TOYA anterior approach; difficulty in walking Onset Date 09/19/22 M3 PT-IP Subjective Start: 09/19/22 17:41 Freq: NEEDED Status: Active Protocol: Document 09/20/22 10:01 TS (Rec: 09/20/22 10:21 TS [id number]) Subjective Physical Therapy Visit Type Type Treatment Note Visit Start Time 09:37 Visit Stop Time 09:59 Total Visit Minutes 22 Number of FLEET SERVICE CLERK Visits 1 Physical Therapy Visit Comments Patient Comments Pt reports not having much pain just some soreness, agreeable to do PT Therapy Pain Assessment Pain When Pain Assessed During Mobility Pain Present Pain Present Pain Reported M4 PT-IP Mobility and Gait Start: 09/19/22 17:41 Freq: NEEDED Status: Active Protocol: Document 09/20/22 10:01 TS (Rec: 09/20/22 10:21 TS [id number]) PT-Transfer Assessment Sit to and From Stand Sit to and from Stand Standby Assistance,Use of Upper Extremities Equipment Transfer Assistive Device Gait Belt,Front Wheeled Walker Orthotic/Prosthetic Devices or Brace: No Comments Mobility Comments Pt found resting in chair, agreeable to PT. Sit to stand with FWW SBA, deonstrates good posture in standing with no retroleaning. She ambulated in hallway with step thru gait with FWW, denied any dizziness , no buckling or LOB. She performed x2 platform steps with FWW CGA, provided cues for FWW management and step sequencing. Educated pt on post-op exercises and the use of cane when at home. Pt was left in chair, RN notified. Gait Assessment Gait Gait Assistance Required: Standby Assistance Distance (Feet) 200 Able to Maintain Weight Bearing Status Yes During Gait Assistive Devices Assistive Device Gait Belt,Front Wheeled Walker Orthotic/Prosthetic Devices or Brace: No Gait Deviations General Gait Pattern Narrow Based Gait Factors Limiting Gait Function Factors Limiting Gait Function Decreased Strength,Limited Range of Motion Comments Gait Comments See mobility comments. Stair Climbing Assessment Evaluation Level of Assist On Stairs Contact Guard Assistance,1 Person Assistance Devices Stair Climbing Assistive Devices Front Wheel Walker Technique/Endurance Stair Climbing Direction Ascend and Descend Stair Climbing Technique Step to Step Number of Steps Climbed 1 Stair Climbing Set # Repetitions (reps) 2 Comments Stair Climbing Comments See mobility comments. PT-Balance Assessment Sitting Balance and Reactions Static Sitting Balance Ability Normal Dynamic Sitting Balance Ability Normal Standing Balance and Reactions Static Standing Balance Ability Good Dynamic Standing Balance Ability Good Device Used FWW M5 PT-IP Objective Assessments Start: 09/19/22 17:41 Freq: NEEDED Status: Active Protocol: Document 09/19/22 14:58 AB (Rec: 09/19/22 17:56 AB [id number]) Orientation Orientation/Cognition Level of Alertness Alert Orientation Name,Place,Situation Language Function Ability No Deficits Noted Safety Awareness Decreased Safety Awareness Memory Description Short Term Impaired Gross Range of Motion Lower Extremity ROM Assessment Within Functional Limits Strength Lower Extremity Strength Assessment Left Impaired Hip 3+/5 Knee 4-/5 Sensation Assessment Sensation Gross Sensation Left LE Impaired Sensation Description Numbness Comments Sensation Comments chronic L anterior thigh numbness Muscle Tone Muscle Tone WNL Yes M6 PT-IP Treatment Start: 09/19/22 17:41 Freq: NEEDED Status: Active Protocol: Document 09/20/22 10:01 (Rec: 09/20/22 10:21 [id number]) Physical Therapy Treatment Education Education Provided Precautions,Weight Bearing Status,Post-Op Packet,Safety Other Treatments Other Treatment Performed Educated pt on post-op exercises. M7 PT-IP Assessment and Plan Start: 09/19/22 17:41 Freq: NEEDED Status: Active Protocol: Document 09/20/22 10:01 TS (Rec: 09/20/22 10:21 [id number]) PT Summary Assessment and Plan Potential Rehabilitation Potential Excellent Summary Impairments Pain,ROM,Strength,Balance, Coordination,Sensation,Tone, Cognition,Bed Mobility, Transfers,Gait,Activity Tolerance Progress Towards Goals Progressing Toward Goals Assessment Summary Pt is progressing well with her mobility this session. She progressed her gait to ~200' SBA with FWW with step thru gait, no buckling or LOB. She performed steps x2 with FWW on platform steps CGA with spouse, provided education and cues for step sequencing. PT is recommending return home with assist from spouse. Goals Bed Mobility Goal Independent Transfer Goal Independent,Front Wheeled Walker Gait Goal Independent,Front Wheel Walker Gait Distance 250 Other Goals up/down 2 platform steps using FWW SBA Days to Meet Goals 5 Frequency of Treatment Frequency Of Treatment Twice a Day Treatment Plan Physical Therapy Treatment Plan Bed Mobility Training,Transfer Training,Gait Training, Therapeutic Exercise,Balance Retraining,Post Op Education, Discharge Planning,Hot or Cold Pack,Neuromuscular Re-ed, Coordination Retraining,Manual Therapy Precautions Anterior Hip Precautions No Hip Extension,No Hip External Rotation Weight Bearing Status Weight Bearing Status Weight Bear as Tolerated Allowed Weight Bearing Amount (enter % LLE WBAT or #) (%) Recommendations To Nursing Amount of Assist Needed Standby Assistance Discharge Recommendations PT Discharge Recommendations Home with Assistance, Outpatient PT Transportation Needs at Discharge Private Vehicle
--- NOTE | 2022-09-20 09:42 | OT.IP.EVAL ---
Current Diagnoses Unilateral post-traumatic osteoarthritis, left hip (09/19/22) Presence of unspecified artificial hip joint (09/19/22) Surgery Performed Operation Date: 09/19/22 07:45 Actual Procedures p Total Hip Arthroplasty/Anterior Approach(Left) - Sheila Willard MD Past Medical History (Last Updated 09/09/22 @ 09:13 by Julia Haley, RN) Anxiety Chicken pox Foot fracture History of Mohs micrographic surgery for skin cancer Measles Mumps Osteoarthritis (~1999) Osteopenia Osteoporosis Subcutaneous mass of left lower extremity Surgical History (Last Updated 09/09/22 @ 09:15 by Julia Haley, RN) History of bilateral tubal ligation History of surgery Hx of dilation and curettage Occupational Therapy Inpatient Evaluation/Re-Eval M1 PT/OT-IP Prior Functional Status Start: 09/19/22 17:41 Freq: NEEDED Status: Active Protocol: Document 09/20/22 11:06 CGR (Rec: 09/20/22 11:17 CGR [id number]) Medical Review Prior Functional Status Medical History Reviewed Yes Communication able to make needs known Mobility and Gait pt stated that she is independent with all mobilities and ambulation without AD Activities of Daily Living and IADL's Pt was Ind in all ADLs at baseline and 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 Social History Household Members spouse Living Arrangements House Number of Floors (Floors) Two Floors Number of Stairs To Enter/Railing? pt plans to stay on the main level of the house has 2 platform steps to enter from the back of the house Home Environment Standard Height Toilet,Tub/ Shower Home Equipment Front Wheel Walker,Four Wheel Walker,Straight Cane Employment Status Retired Additional Social History Comment Pt sleeps in a flat bed. M2 OT-IP Current Condition Start: 09/20/22 11:06 Freq: Status: Active Protocol: Document 09/20/22 11:06 CGR (Rec: 09/20/22 11:17 CGR [id number]) Occupational Therapy Current Condition Current Condition Evaluation Date 09/20/22 Treatment Diagnosis L TOYA anterior Diagnosis Onset Date 09/19/22 Post Operative Precautions Anterior Hip Precautions No Hip Extension,No Hip External Rotation Weight Bearing Status Weight Bearing Status Weight Bear as Tolerated M3 OT- IP Subjective and Pain Start: 09/20/22 11:06 Freq: Status: Active Protocol: Document 09/20/22 11:06 CGR (Rec: 09/20/22 11:17 CGR [id number]) OT- Subjective Occupational Therapy Visit Type Type Initial Evaluation Visit Start Time 09:01 Visit Stop Time 09:42 Total Visit Minutes 41 Notes Pt's present throughout session. OT Pain Assessment Pain When Pain Assessed At Rest Pain Present Pain Present Pain Reported Location Left Hip Intensity 1 Scale Used Numeric (0 - 10) Management Techniques Modification of Treatment,Re- positioning,Timing of Activity with Medications M4 OT- IP ADL's Start: 09/20/22 11:06 Freq: Status: Active Protocol: Document 09/20/22 11:06 CGR (Rec: 09/20/22 11:17 CGR [id number]) OT [id number] Comments OT Self-Feeding Comments not meal time OT ADL-Grooming General Evaluation Grooming Ability Independent Comments OT Grooming Comments washed hands at sink OT ADL-Oral Care Comments Oral Care Comments Pt declined to perform OT ADL-Dressing Comments OT Dressing Comments Pt is able to doff and don socks IND. Educated on sock aid and invasive cardiovascular technologist for LB dressing. OT ADL-Toileting General Evaluation Toileting Ability Independent Comments OT Toileting Comments simulated seated on toielt OT ADL-Bathing Comments OT Bathing Comments not performed M5 OT- IP IADL's Start: 09/20/22 11:06 Freq: Status: Active Protocol: Document 09/20/22 11:06 CGR (Rec: 09/20/22 11:17 CGR [id number]) OT-Instrumental Activities of Daily Living Deficits IADL Deficits Identified No Deficits Home Safety Awareness Awareness of Need for Assistance at Home Good Awareness Ability to Problem Solve Emergency Able to Problem Solve Situations Medication Management Medication Management No Deficits Identified Money Management Money Management No Deficits Identified Meal Preparation Meal Preparation No Deficits Identified, Caregiver Provides Assist Rubber Cutter Rubber Cutter No Deficits Identified, Caregiver Provides Assist Driving Driving Comments Pt understands that she should be cleared by MD prior to driving M6 OT- IP Functional Cognition Start: 09/20/22 11:06 Freq: Status: Active Protocol: Document 09/20/22 11:06 CGR (Rec: 09/20/22 11:17 CGR [id number]) Cognitive Factors Limiting Selfcare Function Cognitive Ability Level of Alertness Alert Patient Orientation Name,Age,Birthday,Month,Date, Year,Day of Week,Place, Situation Attention Span Ability Capable of Focused Attention, Capable of Sustained Attention Ability to Follow Commands Able to Follow Multi-Step Commands OT- Vision and Hearing OT- Hearing Assessment OT- Hearing Assessment WFL OT- Vision Assessment Visual Acuity Glasses All The Time Visual Attentiveness WFL Occular Pursuits WFL Visual Convergence WFL M7 OT- IP Mobility and Balance Start: 09/20/22 11:06 Freq: Status: Active Protocol: Document 09/20/22 11:06 CGR (Rec: 09/20/22 11:17 CGR [id number]) OT-Transfer Assessment Sit to and From Stand Sit to and from Stand Independent Transfers Transfer Ability Independent Technique Transfer Destination Chair,Toilet Transfer Technique Stand Step Pivot Devices Transfer Assistive Devices Gait Belt,Front Wheeled Walker Comments Mobility Comments mobility around the room OT- Balance Assessment Sitting Balance and Reactions Static Sitting Balance Ability Normal Dynamic Sitting Balance Ability Normal Standing Balance and Reactions Static Standing Balance Ability Normal Dynamic Standing Balance Ability Normal M8 OT- IP Objective Assessments Start: 09/20/22 11:06 Freq: Status: Active Protocol: Document 09/20/22 11:06 CGR (Rec: 09/20/22 11:17 CGR [id number]) OT Gross Range of Motion Upper Extremity Range of Motion Assessment Within Functional Limits OT Strength Upper Extremity Strength Assessment Within Functional Limits Comments Strength Comments 4+/5 OT- Coordination Assessment Upper Extremity Finger to Nose Test Within Functional Limits Finger Tapping Test Within Functional Limits OT-Muscle Tone Assessment Muscle Tone WNL Yes OT Sensation Assessment Edema Edema Absent M9 OT- IP Assessment and Plan Start: 09/20/22 11:06 Freq: Status: Active Protocol: Document 09/20/22 11:06 CGR (Rec: 09/20/22 11:17 R [id number]) OT Summary Assessment and Plan Potential Rehabilitation Potential Good Analytic Complexity at Evaluation Low Summary Progress Towards Goals Goals Met Assessment Summary Pt presents as a low complexity evaluation s/p admit for L TOYA anterior approach. Pt is close to her baseline and safe with DME at this time. No further OT needs . Frequency of Treatment Frequency Of Treatment Discharge Discharge Recommendations OT Discharge Recommendations Home with Assistance Transportation Needs at Discharge Private Vehicle
--- NOTE | 2022-09-20 11:35 | PC.NURSE ---
Day shift: Went over discharge instructions with pt and her spouse. Answered all questions and pt stated understanding. PIV d/c'ed. L hip dressing CDI. Rodolfo Jaquez escorted pt out via wheelchair with pt's spouse.
== END 2022-09-20 10:45 | disposition home or self-care (01) ==
LOC: OR 06:10 → AC 06:11
PROVIDERS: Family Provider Internal Medicine; PCP Internal Medicine; Referring Provider Orthopaedic Surgery; Visit Provider Orthopaedic Surgery
PROC: (CPT 27130; principal; 2022-09-19 07:45)
DX: M16.52 Unilateral post-traumatic osteoarthritis, left hip (principal)
CPT/HCPCS: 27130; 36415; 73502; 76000; 85014; 85018; 97116; 97162; 97165; 97530; 97535; C1776; A9270; C9290; J0171; J0690; J2250; J2704; J3010

== ENCOUNTER 2022-10-10 12:45 | Outpatient (RCR) | payer OTHER, SELFPAY ==
[2022-07-09 15:26] VITALS: BMI 19.3
--- NOTE | 2022-09-05 17:44 | PT.OIE ---
Current Diagnoses Unilateral primary osteoarthritis, left hip (09/05/22) Stiffness of left hip, not elsewhere classified (09/05/22) Past Medical History (Last Reviewed 07/09/22 @ 13:39 by Aris Anne DO) Chicken pox Foot fracture Measles Mumps Osteoarthritis (~1999) Osteopenia Osteoporosis Subcutaneous mass of left lower extremity Visit Care Team Role Provider Type EULALIO Viramontes Family Provider Advanced [employer] Facility Manager Primary Care Provider Specialty: Family Practice Address: [address] [place] [address], [facility] [place], [address] Email: [email or web address] Attending Provider Physician Referring Provider Specialty: Orthopedics Orthopedic Surgery Address: [address] [place] [address], [address] Email: [email or web address] Physical Therapy Initial Evaluation PT-OP-A Visit Information Start: 09/05/22 17:22 Freq: Status: Active Protocol: Document 09/05/22 16:30 DCW (Rec: 09/05/22 17:33 [facility] [id number]) Out-Patient Physical Therapy Visit Information Visit Information Visit Type Initial Evaluation Visit Start Time 16:30 Visit Stop Time 17:10 Total Visit Minutes 40 Visit Number 1 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 Pt has previously undergone conservative treatment for her hip at this clinic with mixed results, but continues to experience decreased ROM and weakness, and her hip x-ray helped convince her to go through with a TOYA. Prior Treatments and Tests Left hip x-ray: IMPRESSION: Severe degenerative changes of the left hip. per Alex Stoddard M.D. on 05/13/2022 PT-OP-C Subjective Start: 09/05/22 17:22 Freq: Status: Active Protocol: Document 09/05/22 16:30 DCW (Rec: 09/05/22 17:33 DCW [id number]) OP-PT Subjective Patient Comments Patient Comments I can't believe we're this close to surgery. I'm ready for it. Patient Questionnaires Lower Extremity Functional Scale LEFS Score 51/80 = 63.75% PT-OP-K Range of Motion Start: 09/05/22 17:22 Freq: Status: Active Protocol: Document 09/05/22 16:30 DCW (Rec: 09/05/22 17:33 DCW [id number]) Hip Goniometric Range of Motion Hip Right Passive Testing Position Supine Flexion w/Knee Flexed 125 Abduction 32 Internal Rotation 45 External Rotation 60 Left Passive Hip ROM WFL No Testing Position Supine Flexion w/Knee Flexed 105 Abduction 16 Internal Rotation 2 External Rotation 45 PT-OP-M Strength Start: 09/05/22 17:22 Freq: Status: Active Protocol: Document 09/05/22 16:30 DCW (Rec: 09/05/22 17:33 DCW [id number]) Hip Strength Hip Manual Muscle Testing Right Flexion (L2) 4 Good Abduction 4 Good Adduction 4 Good External Rotation 4+ Good+ Internal Rotation 4+ Good+ Left Flexion (L2) 3- Fair- Abduction 3- Fair- Adduction 4 Good External Rotation 4 Good Internal Rotation 4 Good PT-OP-Q Treatments Start: 09/05/22 17:22 Freq: Status: Active Protocol: Document 09/05/22 16:30 DCW (Rec: 09/05/22 17:33 DCW [id number]) Self-Care/Home Management Treatment Education Other Education Post-op sit<->stand, FWW, and stair training, FWW sizing, post-op HEP review (ankle pumps, quad sets, glute sets, heel slides, supine abduction) , anterior hip precautions review. PT-OP-T Assessment and Plan Start: 09/05/22 17:22 Freq: Status: Active Protocol: Document 09/05/22 16:30 DCW (Rec: 09/05/22 17:43 DCW [id number]) Physical Therapy Assessment Rehab Potential Rehabilitation Potential Good Goals One Impairment Pt does not have an appropriate home exercise program Short Term Goal (STG) Pt to be independent and compliant with an appropriate HEP STG Duration 10/19/22 Assessment Summary Assessment Pt presents for pre-op PT appointment. Pt shows very good understanding of assistive device use post-op, appropriate gait pattern, good sit<->stand ability from low seats/toilet. Pt able to demonstrate proper post-op technique for ascending/ descending stairs. Acknowledges understanding technique and importance of post-op HEP. Pt to return to skilled therapy for re- evaluation following TOYA on . First post-op PT visit currently scheduled 09/30/22. Physical Therapy Plan Frequency and Duration Frequency of Treatment return post-op Plan of Care Start Date 09/05/22 Plan of Care End Date 10/11/22 Therapeutic Interventions Therapeutic Interventions Balance Training,Gait Training ,Home Exercise Program,Joint Mobilizations,Manual Therapy, Patient/Caregiver Education, Self-Care/Home Management,Soft Tissue Mobilization, Therapeutic Activities, Therapeutic Exercises, Vestibular Rehabilitation Modalities Cold Pack/Ice Massage,Electric Stimulation,Hot Packs, Ultrasound Next Visit Focus/Plan Next Note Type Re-Evaluation Next Visit Plan Post-op re-evaluation
--- NOTE | 2022-09-05 17:45 | PT.OPPOC ---
Physical, Occupational & Speech Therapy At [facility] Current Diagnoses Unilateral primary osteoarthritis, left hip (09/05/22) Stiffness of left hip, not elsewhere classified (09/05/22) Visit Care Team Role Provider Type EULALIO Viramontes Family Provider Advanced Building Principal Primary Care Provider Specialty: Family Practice Address: [address] [place] [address], [place], [address] Email: [email or web address] Sheila [email or web address] MD Attending Provider Physician Referring Provider Specialty: Orthopedics Orthopedic Surgery Address: [address] [place] [address], [place], [address] Email: [email or web address] Plan Of Care PT-OP-T Assessment and Plan Start: 09/05/22 17:22 Freq: Status: Active Protocol: Document 09/05/22 16:30 DCW (Rec: 09/05/22 17:43 DCW [id number]) Physical Therapy Assessment Rehab Potential Rehabilitation Potential Good Goals One Impairment Pt does not have an appropriate home exercise program Short Term Goal (STG) Pt to be independent and compliant with an appropriate HEP STG Duration 10/19/22 Assessment Summary Assessment Pt presents for pre-op PT appointment. Pt shows very good understanding of assistive device use post-op, appropriate gait pattern, good sit<->stand ability from low seats/toilet. Pt able to demonstrate proper post-op technique for ascending/ descending stairs. Acknowledges understanding technique and importance of post-op HEP. Pt to return to skilled therapy for re- evaluation following TOYA on . First post-op PT visit currently scheduled 09/30/22. Physical Therapy Plan Frequency and Duration Frequency of Treatment return post-op Plan of Care Start Date 09/05/22 Plan of Care End Date 10/11/22 Therapeutic Interventions Therapeutic Interventions Balance Training,Gait Training ,Home Exercise Program,Joint Mobilizations,Manual Therapy, Patient/Caregiver Education, Self-Care/Home Management,Soft Tissue Mobilization, Therapeutic Activities, Therapeutic Exercises, Vestibular Rehabilitation Modalities Cold Pack/Ice Massage,Electric Stimulation,Hot Packs, Ultrasound Next Visit Focus/Plan Next Note Type Re-Evaluation Next Visit Plan Post-op re-evaluation Plan of Care Dates Plan of Care Start Date 09/05/22 Plan of Care End Date 10/11/22 Electronically Signed by: Feliz Barlow, PT 09/05/22 [id number] If you are in agreement with this Plan of Care, please return a signed and dated copy. I have reviewed this Plan of Care and certify that the skilled therapy services above are required to meet the patient?s needs. Physician Signature Date Printed Name and Credentials Clinical Instructor Signature Printed Name and Credentials
--- NOTE | 2022-09-30 17:11 | PT.OTRE ---
Current Diagnoses Unilateral primary osteoarthritis, left hip (09/30/22) Stiffness of left hip, not elsewhere classified (09/30/22) Past Medical History (Last Updated 09/09/22 @ 09:13 by Julia Haley RN) Anxiety Chicken pox Foot fracture History of Mohs micrographic surgery for skin cancer Measles Mumps Osteoarthritis (~1999) Osteopenia Osteoporosis Subcutaneous mass of left lower extremity Surgical History (Last Updated 09/09/22 @ 09:15 by Julia Haley RN) History of bilateral tubal ligation History of surgery Hx of dilation and curettage Visit Care Team Role Provider Type EULALIO Viramontes Family Provider Advanced Blower Room Attendant Primary Care Provider Specialty: Family Practice Address: [address] [place] [address], [id number] Email: [email or web address] Sheila Willard MD Attending Provider Physician Referring Provider Specialty: Orthopedics Orthopedic Surgery Address: [address] [place] [address], [id number] Email: [email or web address] Physical Therapy Re-Evaluation PT-OP-A Visit Information Start: 09/05/22 17:22 Freq: Status: Active Protocol: Document 09/30/22 12:45 DCW (Rec: 09/30/22 13:24 DCW [id number]) Out-Patient Physical Therapy Visit Information Visit Information Visit Type Re-Evaluation Visit Start Time 12:45 Visit Stop Time 13:20 Total Visit Minutes 35 Visit Number 2 Number of SHIRT TRIMMER Visits 0 Evaluation Information Evaluation Date 09/05/22 PT-OP-B Current Condition Start: 09/05/22 17:22 Freq: Status: Active Protocol: Document 09/05/22 16:30 DCW (Rec: 09/05/22 17:33 DCW [id number]) Current Condition History of Current Condition Onset Date 09/19/22 Current Complaints Pre-operative left TOYA, anterior approach History of Current Condition Pt is a 72 year old female presenting to her pre-op appointment prior to her anterior left TOYA on 09/19/22. Pt has previously undergone conservative treatment for her hip at this clinic with mixed results, but continues to experience decreased ROM and weakness, and her hip x-ray helped convince her to go through with a TOYA. Prior Treatments and Tests Left hip x-ray: IMPRESSION: Severe degenerative changes of the left hip. per Alex Stoddard M.D. on 05/13/2022 PT-OP-C Subjective Start: 09/05/22 17:22 Freq: Status: Active Protocol: Document 09/30/22 12:45 DCW (Rec: 09/30/22 13:24 DCW [id number]) OP-PT Subjective Patient Comments Patient Comments Pt reports she is feeling great. Was at a get-together this weekend where she had to walk around a grassy field, did not feel like she needed her cane, did well with everything. PT-OP-E Functional Tests Start: 09/05/22 17:22 Freq: Status: Active Protocol: Document 09/30/22 12:45 DCW (Rec: 09/30/22 13:24 DCW [id number]) Functional Tests 6 Minute Walk Test Distance 769' Device Used none Comments 2.13 ft/sec PT-OP-G Mobility & Gait Start: 09/30/22 13:25 Freq: Status: Active Protocol: Document 09/30/22 12:45 DCW (Rec: 09/30/22 13:27 DCW [id number]) OP Gait Assessment Gait Gait Assistance Required: Independent Distance (Feet) 769 Assistive Devices Assistive Device None,Straight Cane Gait Deviations General Gait Pattern Antalgic Comments Gait Comments Pt ambulates with and without a SPC, mild antalgic limp on left, otherwise no indications of impairment or loss of balance Stair Climbing Evaluation Evaluation Level of Assist On Stairs Independent Devices Stair Climbing Assistive Devices Left Railing,Right Railing Technique/Endurance Stair Climbing Direction Ascend and Descend Stair Climbing Technique Step Over Step,Step to Step Comments Stair Climbing Comments Started with step-to, then able to demonstrate step-over using bilateral railing with no difficulty PT-OP-K Range of Motion Start: 09/05/22 17:22 Freq: Status: Active Protocol: Document 09/30/22 12:45 DCW (Rec: 09/30/22 13:24 DCW [id number]) Hip Goniometric Range of Motion Hip Measured in Degrees Left Active Testing Position Supine Flexion w/Knee Flexed 67 Abduction 15 Left Passive Testing Position Supine Flexion w/Knee Flexed 105 Abduction 23 PT-OP-M Strength Start: 09/05/22 17:22 Freq: Status: Active Protocol: Document 09/30/22 12:45 DCW (Rec: 09/30/22 13:24 DCW [id number]) Hip Strength Hip Manual Muscle Testing Right Flexion (L2) 4 Good Abduction 4 Good Adduction 4 Good External Rotation 4+ Good+ Internal Rotation 4+ Good+ Left Flexion (L2) 4 Good Abduction 3 Fair Adduction 4 Good External Rotation 4 Good Internal Rotation 4 Good PT-OP-Q Treatments Start: 09/05/22 17:22 Freq: Status: Active Protocol: Document 09/05/22 16:30 DCW (Rec: 09/05/22 17:33 DCW [id number]) Self-Care/Home Management Treatment Education Other Education Post-op sit<->stand, FWW, and stair training, FWW sizing, post-op HEP review (ankle pumps, quad sets, glute sets, heel slides, supine abduction) , anterior hip precautions review. PT-OP-T Assessment and Plan Start: 09/05/22 17:22 Freq: Status: Active Protocol: Document 09/30/22 12:45 DCW (Rec: 09/30/22 17:11 DCW [id number]) Physical Therapy Assessment Rehab Potential Rehabilitation Potential Excellent Evaluation Complexity Number of Personal Factors/Comorbidities 1-2 Number of Body Systems Impaired 1-2 Clinical Presentation at Evaluation Stable Impairments Impairments Activity Tolerance,Functional Activities,Functional Mobility ,Gait,Pain,ROM,Strength Goals Three Impairment Left hip abduction weakness ( MMT 3/5) Mcfp Goal (LTG) Pt to exhibit increased left hip strength by demonstrating MMT of hip abduction of at least 4/5 in order to improve stability of left hiop s/p L TOYA LTG Duration 12/01/22 Two Impairment Pt ambulates with mild antalgia [employer] Goal (LTG) Pt to ambulate around the community without any evidence of antalgia or limp LTG Duration 12/01/22 One Impairment Pt does not have an appropriate home exercise program Short Term Goal (STG) Pt to be independent and compliant with an appropriate HEP STG Duration 10/31/22 Assessment Summary Assessment Pt presents to skilled therapy 11 s/p left anterior approach TOYA. Pt doing very well overall, ambulating with only mild antalgia and hip abduction weakness. Pt largely walking without any assistive device, using SPC for longer distances. Has been following post-op HEP. Still showing some mild loss of hip ROM and weakness post-op, but feels like her hip is much stronger and feels more stable. Occasionally ices it, has largely stopped NSAIDs, but experiences minimal pain. Continue skilled therapy focusing on gait, hip strengthening, ROM, and mobility. Pt is doing well enough that she will likely somewhat quickly transition to independent HEP. Physical Therapy Plan Frequency and Duration Frequency of Treatment 1-2x/week Plan of Care Start Date 09/30/22 Plan of Care End Date 12/01/22 Therapeutic Interventions Therapeutic Interventions Balance Training,Gait Training ,Home Exercise Program,Joint Mobilizations,Manual Therapy, Patient/Caregiver Education, Self-Care/Home Management,Soft Tissue Mobilization, Therapeutic Activities, Therapeutic Exercises, Vestibular Rehabilitation Modalities Cold Pack/Ice Massage,Electric Stimulation,Hot Packs, Ultrasound Next Visit Focus/Plan Next Note Type Treatment Note Next Visit Plan Hip strengthening, gait training
--- NOTE | 2022-09-30 17:11 | PT.OPPOC ---
Physical, Occupational & Speech Therapy At [facility] Current Diagnoses Unilateral primary osteoarthritis, left hip (09/30/22) Stiffness of left hip, not elsewhere classified (09/30/22) Visit Care Team Role Provider Type EULALIO Viramontes Family Provider Advanced Appointment Specialist Primary Care Provider Specialty: Family Practice Address: [address] [place] [address], [place], [address] Email: [email or web address] Sheila Willard MD Attending Provider Physician Referring Provider Specialty: Orthopedics Orthopedic Surgery Address: [address] [place] [address], [id number] Email: [email or web address] Plan Of Care PT-OP-T Assessment and Plan Start: 09/05/22 17:22 Freq: Status: Active Protocol: Document 09/30/22 12:45 DCW (Rec: 09/30/22 17:11 DCW [id number]) Physical Therapy Assessment Rehab Potential Rehabilitation Potential Excellent Evaluation Complexity Number of Personal Factors/Comorbidities 1-2 Number of Body Systems Impaired 1-2 Clinical Presentation at Evaluation Stable Impairments Impairments Activity Tolerance,Functional Activities,Functional Mobility ,Gait,Pain,ROM,Strength Goals Three Impairment Left hip abduction weakness ( MMT 3/5) Senior Care Goal (LTG) Pt to exhibit increased left hip strength by demonstrating MMT of hip abduction of at least 4/5 in order to improve stability of left hiop s/p L TOYA LTG Duration 12/01/22 Two Impairment Pt ambulates with mild antalgia Senior Care Goal (LTG) Pt to ambulate around the community without any evidence of antalgia or limp LTG Duration 12/01/22 One Impairment Pt does not have an appropriate home exercise program Short Term Goal (STG) Pt to be independent and compliant with an appropriate HEP STG Duration 10/31/22 Assessment Summary Assessment Pt presents to skilled therapy 11 s/p left anterior approach TOYA. Pt doing very well overall, ambulating with only mild antalgia and hip abduction weakness. Pt largely walking without any assistive device, using SPC for longer distances. Has been following post-op HEP. Still showing some mild loss of hip ROM and weakness post-op, but feels like her hip is much stronger and feels more stable. Occasionally ices it, has largely stopped NSAIDs, but experiences minimal pain. Continue skilled therapy focusing on gait, hip strengthening, ROM, and mobility. Pt is doing well enough that she will likely somewhat quickly transition to independent HEP. Physical Therapy Plan Frequency and Duration Frequency of Treatment 1-2x/week Plan of Care Start Date 09/30/22 Plan of Care End Date 12/01/22 Therapeutic Interventions Therapeutic Interventions Balance Training,Gait Training ,Home Exercise Program,Joint Mobilizations,Manual Therapy, Patient/Caregiver Education, Self-Care/Home Management,Soft Tissue Mobilization, Therapeutic Activities, Therapeutic Exercises, Vestibular Rehabilitation Modalities Cold Pack/Ice Massage,Electric Stimulation,Hot Packs, Ultrasound Next Visit Focus/Plan Next Note Type Treatment Note Next Visit Plan Hip strengthening, gait training Plan of Care Dates Plan of Care Start Date 09/30/22 Plan of Care End Date 12/01/22 Electronically Signed by: Feliz Barlow, PT 09/30/22 7550 If you are in agreement with this Plan of Care, please return a signed and dated copy. I have reviewed this Plan of Care and certify that the skilled therapy services above are required to meet the patient?s needs. Physician Signature Date Printed Name and Credentials Clinical Instructor Signature Printed Name and Credentials
--- NOTE | 2022-10-03 13:30 | PT.OTN ---
Current Diagnoses Unilateral primary osteoarthritis, left hip (10/03/22) Stiffness of left hip, not elsewhere classified (10/03/22) Physical Therapy Treatment Note PT-OP-A Visit Information Start: 09/05/22 17:22 Freq: Status: Active Protocol: Document 10/03/22 12:45 DCW (Rec: 10/03/22 13:30 DCW [id number]) Out-Patient Physical Therapy Visit Information Visit Information Visit Type Treatment Note Visit Start Time 12:45 Visit Stop Time 13:30 Total Visit Minutes 45 Visit Number 3 Number of RN DOCUMENTATION Visits 0 Evaluation Information Evaluation Date 09/05/22 PT-OP-B Current Condition Start: 09/05/22 17:22 Freq: Status: Active Protocol: Document 09/05/22 16:30 DCW (Rec: 09/05/22 17:33 DCW [id number]) Current Condition History of Current Condition Onset Date 09/19/22 Current Complaints Pre-operative left TOYA, anterior approach History of Current Condition Pt is a 72 year old female presenting to her pre-op appointment prior to her anterior left TOYA on 09/19/22. Pt has previously undergone conservative treatment for her hip at this clinic with mixed results, but continues to experience decreased ROM and weakness, and her hip x-ray helped convince her to go through with a TOYA. Prior Treatments and Tests Left hip x-ray: IMPRESSION: Severe degenerative changes of the left hip. per Alex Stoddard M.D. on 05/13/2022 PT-OP-C Subjective Start: 09/05/22 17:22 Freq: Status: Active Protocol: Document 10/03/22 12:45 DCW (Rec: 10/03/22 13:30 DCW [id number]) OP-PT Subjective Patient Comments Patient Comments The past few days, I don't know if I've been doing too much or I haven't been keeping up with the tylenol, but it's been a little more sore. PT-OP-E Functional Tests Start: 09/05/22 17:22 Freq: Status: Active Protocol: Document 09/30/22 12:45 DCW (Rec: 09/30/22 13:24 DCW [id number]) Functional Tests 6 Minute Walk Test Distance 769' Device Used none Comments 2.13 ft/sec PT-OP-G Mobility & Gait Start: 09/30/22 13:25 Freq: Status: Active Protocol: Document 09/30/22 12:45 DCW (Rec: 09/30/22 13:27 DCW [id number]) OP Gait Assessment Gait Gait Assistance Required: Independent Distance (Feet) 769 Assistive Devices Assistive Device None,Straight Cane Gait Deviations General Gait Pattern Antalgic Comments Gait Comments Pt ambulates with and without a SPC, mild antalgic limp on left, otherwise no indications of impairment or loss of balance Stair Climbing Evaluation Evaluation Level of Assist On Stairs Independent Devices Stair Climbing Assistive Devices Left Railing,Right Railing Technique/Endurance Stair Climbing Direction Ascend and Descend Stair Climbing Technique Step Over Step,Step to Step Comments Stair Climbing Comments Started with step-to, then able to demonstrate step-over using bilateral railing with no difficulty PT-OP-K Range of Motion Start: 09/05/22 17:22 Freq: Status: Active Protocol: Document 09/30/22 12:45 DCW (Rec: 09/30/22 13:24 DCW [id number]) Hip Goniometric Range of Motion Hip Left Active Testing Position Supine Flexion w/Knee Flexed 67 Abduction 15 Left Passive Testing Position Supine Flexion w/Knee Flexed 105 Abduction 23 PT-OP-M Strength Start: 09/05/22 17:22 Freq: Status: Active Protocol: Document 09/30/22 12:45 DCW (Rec: 09/30/22 13:24 DCW [id number]) Hip Strength Hip Manual Muscle Testing Right Flexion (L2) 4 Good Abduction 4 Good Adduction 4 Good External Rotation 4+ Good+ Internal Rotation 4+ Good+ Left Flexion (L2) 4 Good Abduction 3 Fair Adduction 4 Good External Rotation 4 Good Internal Rotation 4 Good PT-OP-Q Treatments Start: 09/05/22 17:22 Freq: Status: Active Protocol: Document 10/03/22 12:45 DCW (Rec: 10/03/22 13:30 DCW [id number]) Cardio Equipment Bicycle (Upright) Duration (Minutes) 6 Resistance 8 Seat Position 3 Gym Equipment Shuttle Recovery Unilateral Squats Resistance 25# (one new band) Shuttle Recovery Platform Stable Bilateral Squats Resistance 50# (one new band) Shuttle Recovery Platform Stable Therapeutic Exercises Supine Exercises Abduction Supine Exercise Name [facility] Side left Other Exercises BOSU Lunge Other Exercise Name BOSU Lunge Side bilateral Step-ups Other Exercise Name Step-ups/downs Side left Equipment Used 6 step Sit<->Stand Other Exercise Name StS Comments VCs for limited R lateral shift Resisted Ambulation Other Exercise Name Resisted side-stepping Resistance Yellow T-band PT-OP-T Assessment and Plan Start: 09/05/22 17:22 Freq: Status: Active Protocol: Document 10/03/22 12:45 DCW (Rec: 10/03/22 13:30 DCW [id number]) Physical Therapy Assessment Impairments Impairments Activity Tolerance,Functional Activities,Functional Mobility ,Gait,Pain,ROM,Strength Goals Three Impairment Left hip abduction weakness ( MMT 3/5) Shelter Goal (LTG) Pt to exhibit increased left hip strength by demonstrating MMT of hip abduction of at least 4/5 in order to improve stability of left hiop s/p L TOYA LTG Duration 12/01/22 Two Impairment Pt ambulates with mild antalgia Shelter Goal (LTG) Pt to ambulate around the community without any evidence of antalgia or limp LTG Duration 12/01/22 One Impairment Pt does not have an appropriate home exercise program Short Term Goal (STG) Pt to be independent and compliant with an appropriate HEP STG Duration 10/31/22 Assessment Summary Assessment Pt exhibits slight limp getting up and walking from waiting room, but otherwise continues to do incredibly well 2 weeks s/p L TOYA. Will likely cancel next visit, follow-up in one week from today, discuss potential problems or changes to HEP at that time. Physical Therapy Plan Frequency and Duration Frequency of Treatment 1-2x/week Plan of Care Start Date 09/30/22 Plan of Care End Date 12/01/22 Therapeutic Interventions Therapeutic Interventions Balance Training,Gait Training ,Home Exercise Program,Joint Mobilizations,Manual Therapy, Patient/Caregiver Education, Self-Care/Home Management,Soft Tissue Mobilization, Therapeutic Activities, Therapeutic Exercises, Vestibular Rehabilitation Modalities Cold Pack/Ice Massage,Electric Stimulation,Hot Packs, Ultrasound Next Visit Focus/Plan Next Note Type Treatment Note Next Visit Plan Hip strengthening, gait training
--- NOTE | 2022-10-10 13:18 | PT.OTN ---
Current Diagnoses Unilateral primary osteoarthritis, left hip (10/10/22) Stiffness of left hip, not elsewhere classified (10/10/22) Physical Therapy Treatment Note PT-OP-A Visit Information Start: 09/05/22 17:22 Freq: Status: Active Protocol: Document 10/10/22 12:45 DCW (Rec: 10/10/22 13:18 DCW [id number]) Out-Patient Physical Therapy Visit Information Visit Information Visit Type Discharge Summary Visit Start Time 12:45 Visit Stop Time 13:10 Total Visit Minutes 25 Visit Number 4 Number of [employer] DISPATCHER Visits 0 Evaluation Information Evaluation Date 09/05/22 PT-OP-B Current Condition Start: 09/05/22 17:22 Freq: Status: Active Protocol: Document 09/05/22 16:30 DCW (Rec: 09/05/22 17:33 DCW [id number]) Current Condition History of Current Condition Onset Date 09/19/22 Current Complaints Pre-operative left TOYA, anterior approach History of Current Condition Pt is a 72 year old female presenting to her pre-op appointment prior to her anterior left TOYA on 09/19/22. Pt has previously undergone conservative treatment for her hip at this clinic with mixed results, but continues to experience decreased ROM and weakness, and her hip x-ray helped convince her to go through with a TOYA. Prior Treatments and Tests Left hip x-ray: IMPRESSION: Severe degenerative changes of the left hip. per Alex Stoddard M.D. on 05/13/2022 PT-OP-C Subjective Start: 09/05/22 17:22 Freq: Status: Active Protocol: Document 10/10/22 12:45 DCW (Rec: 10/10/22 13:18 DCW [id number]) OP-PT Subjective Patient Comments Patient Comments Notes she has been having stiffness when she isn't moving around as much. Only complaint is that sometimes I have trouble going up stairs. PT-OP-E Functional Tests Start: 09/05/22 17:22 Freq: Status: Active Protocol: Document 09/30/22 12:45 DCW (Rec: 09/30/22 13:24 DCW [id number]) Functional Tests 6 Minute Walk Test Distance 769' Device Used none Comments 2.13 ft/sec PT-OP-G Mobility & Gait Start: 09/30/22 13:25 Freq: Status: Active Protocol: Document 09/30/22 12:45 DCW (Rec: 09/30/22 13:27 DCW [id number]) OP Gait Assessment Gait Gait Assistance Required: Independent Distance (Feet) 769 Assistive Devices Assistive Device None,Straight Cane Gait Deviations General Gait Pattern Antalgic Comments Gait Comments Pt ambulates with and without a SPC, mild antalgic limp on left, otherwise no indications of impairment or loss of balance Stair Climbing Evaluation Evaluation Level of Assist On Stairs Independent Devices Stair Climbing Assistive Devices Left Railing,Right Railing Technique/Endurance Stair Climbing Direction Ascend and Descend Stair Climbing Technique Step Over Step,Step to Step Comments Stair Climbing Comments Started with step-to, then able to demonstrate step-over using bilateral railing with no difficulty PT-OP-K Range of Motion Start: 09/05/22 17:22 Freq: Status: Active Protocol: Document 09/30/22 12:45 DCW (Rec: 09/30/22 13:24 DCW [id number]) Hip Goniometric Range of Motion Hip Left Active Testing Position Supine Flexion w/Knee Flexed 67 Abduction 15 Left Passive Testing Position Supine Flexion w/Knee Flexed 105 Abduction 23 PT-OP-M Strength Start: 09/05/22 17:22 Freq: Status: Active Protocol: Document 09/30/22 12:45 DCW (Rec: 09/30/22 13:24 DCW [id number]) Hip Strength Hip Manual Muscle Testing Right Flexion (L2) 4 Good Abduction 4 Good Adduction 4 Good External Rotation 4+ Good+ Internal Rotation 4+ Good+ Left Flexion (L2) 4 Good Abduction 3 Fair Adduction 4 Good External Rotation 4 Good Internal Rotation 4 Good PT-OP-Q Treatments Start: 09/05/22 17:22 Freq: Status: Active Protocol: Document 10/10/22 12:45 DCW (Rec: 10/10/22 13:18 DCW [id number]) Cardio Equipment Bicycle (Upright) Duration (Minutes) 8 Resistance 8 Seat Position 3 Gym Equipment Shuttle Recovery Unilateral Squats Resistance 37#->25# (one new band) Shuttle Recovery Platform Stable Bilateral Squats Resistance 62# (two new band) Shuttle Recovery Platform Stable Therapeutic Exercises Other Exercises BOSU Lunge Other Exercise Name BOSU Lunge Side bilateral Step-ups Other Exercise Name Step-ups Side left Equipment Used 6 step PT-OP-T Assessment and Plan Start: 09/05/22 17:22 Freq: Status: Active Protocol: Document 10/10/22 12:45 DCW (Rec: 10/10/22 13:18 DCW [id number]) Physical Therapy Assessment Impairments Impairments Activity Tolerance,Functional Activities,Functional Mobility ,Gait,Pain,ROM,Strength Goals Three Impairment Left hip abduction weakness ( MMT 3/5) Nursing Home Goal (LTG) Pt to exhibit increased left hip strength by demonstrating MMT of hip abduction of at least 4/5 in order to improve stability of left hip s/p L TOYA LTG Duration Met Two Impairment Pt ambulates with mild antalgia Budget Consultant Goal (LTG) Pt to ambulate around the community without any evidence of antalgia or limp LTG Duration Met One Impairment Pt does not have an appropriate home exercise program Short Term Goal (STG) Pt to be independent and compliant with an appropriate HEP STG Duration Met Progress Towards Goals Progress Towards Goals Goals Met Assessment Summary Assessment Pt has already met all goals, has no limitations or functional deficits. Ambulates without an assistive device and no limp, was out shopping in [place] for a long period of time yesterday with no difficulty. Pt agreeable to continue independent HEP, appropriate for discharge from skilled PT at this time. Physical Therapy Plan Frequency and Duration Frequency of Treatment 1-2x/week Plan of Care Start Date 09/30/22 Plan of Care End Date 12/01/22 Therapeutic Interventions Therapeutic Interventions Balance Training,Gait Training ,Home Exercise Program,Joint Mobilizations,Manual Therapy, Patient/Caregiver Education, Self-Care/Home Management,Soft Tissue Mobilization, Therapeutic Activities, Therapeutic Exercises, Vestibular Rehabilitation Modalities Cold Pack/Ice Massage,Electric Stimulation,Hot Packs, Ultrasound Discharge Physical Therapy Discharge Reasons Goals Met Next Visit Focus/Plan Next Note Type Discharge Summary
== END 2022-10-11 15:17 | disposition home or self-care (01) ==
LOC: PHYS 12:45
PROVIDERS: Absent Provider Internal Medicine; Family Provider Internal Medicine; PCP Internal Medicine; Referring Provider Orthopaedic Surgery; Visit Provider Orthopaedic Surgery
DX: M16.12 Unilateral primary osteoarthritis, left hip (principal); M25.652 Stiffness of left hip, not elsewhere classified
CPT/HCPCS: 97110; 97161; 97164; 97535

== ENCOUNTER → 2023-04-23 08:17 | Outpatient (CLI) | payer OTHER, SELFPAY ==
[2022-09-19 11:07] VITALS: BMI 21.4
--- NOTE | 2023-04-23 | DI.MG.S_ITS ---
BILATERAL DIGITAL SCREENING MAMMOGRAM 3D/2D WITH CAD: 04/23/2023 CLINICAL: Routine screening. Comparison is made to exams dated: 10/22/2021 mammogram, 10/19/2020 mammogram, and 10/18/2019 mammogram - [facility]. Both breasts are extremely dense, which lowers the sensitivity of mammography (category d />75% glandular tissue). Current study was also evaluated with a Computer Aided Detection (CAD) system. No significant masses, calcifications, or other findings are seen in either breast. There has been no significant interval change. IMPRESSION: NEGATIVE There is no mammographic evidence of malignancy. A 1 year screening mammogram is recommended. Based on the Tyrer Cuzick model (a risk assessment model) the patient's lifetime risk is 8.1% and her 10 year risk is 6.7%. According to the ACR, ACS, and NCCN guidelines, an annual breast MRI exam along with mammogram is recommended if the patient's lifetime risk is 20% or greater. This exam was interpreted at Station ID: [id number]. NOTE: For mammograms, a report in lay terms will be sent to the patient. Approximately 15% of breast malignancies will not be visualized mammographically. In the management of a palpable breast mass, a negative mammogram must not discourage biopsy of a clinically suspicious lesion. Electronically Signed By: Edgard akins/fan:04/23/2023 09:00:32 copy to: Deanne Romero letter sent: Normal Exam ACR BI-RADS Category 1: Negative [id number]
== END ==
PROVIDERS: Family Provider Internal Medicine; PCP Internal Medicine; Referring Provider Internal Medicine; Visit Provider Internal Medicine
DX: Z12.31 Encounter for screening mammogram for malignant neoplasm of breast (principal); R92.343 Mammographic extreme density, bilateral breasts
CPT/HCPCS: 77063; 77067

== ENCOUNTER → 2023-07-18 12:15 | Outpatient (CLI) | payer OTHER, SELFPAY ==
[2022-09-19 11:07] VITALS: BMI 21.4
--- NOTE | 2023-07-18 | DI.RAD.S_ITS ---
PROCEDURE: XR CHEST 2V INDICATIONS: ACUTE COUGH TECHNIQUE: 2 views of the chest were acquired. COMPARISON: [facility], CR, XR CHEST 1V, 07/09/2022, 12:58. FINDINGS: Surgical changes and devices: None. Lungs and pleura: There is hyperinflation. No focal infiltrate. No pleural effusions or pneumothorax. Mediastinum: Mediastinal contours are normal. Heart size is normal. Bones and chest wall: No suspicious bony abnormalities. Soft tissues appear unremarkable. IMPRESSION: Hyperinflation. No acute cardiopulmonary pathology. Dictated by: Shorty Swartz M.D. on 07/18/2023 at 13:44 Approved by: Shorty Swartz M.D. on 07/18/2023 at 13:44
== END ==
PROVIDERS: Family Provider Internal Medicine; PCP Internal Medicine; Referring Provider Registered Nurse; Visit Provider Registered Nurse
DX: R05.1 Acute cough (principal)
CPT/HCPCS: 71046

== ENCOUNTER → 2024-03-14 06:59 | Outpatient (CLI) | payer OTHER, SELFPAY ==
[2022-09-19 11:07] VITALS: BMI 21.4
--- NOTE | 2024-03-14 07:03 | DI.MRI.S_ITS ---
PROCEDURE: MR LUMBAR SPINE WO CON INDICATIONS: LUMBAR RADICULOPATHY TECHNIQUE: Noncontrast sagittal T1 spin echo and T2 fast echo, sagittal STIR, and T2 fast spin echo through the lumbar spine. In cases with scoliosis, additional coronal T2 fast spin echo may be performed. COMPARISON: None. FINDINGS: Image quality: Diagnostic, with note made of motion artifact. Alignment and Curvature: Mild levoconvex scoliotic curvature is noted. There is minimal anterolisthesis at L2-L3, with mild retrolisthesis at L3-L4. Mild grade 1 anterolisthesis is seen at L4-L5. Mild retrolisthesis is seen at L5-S1. Bone Marrow: Marrow is of normal overall signal. No acute vertebral body compression fractures. Spinal Cord: Conus medullaris terminates at the L1 level. Visualized cord demonstrates normal signal and size. Paraspinous Soft Tissues: No paravertebral masses. T12-L1: Moderate loss of disc height is seen. Loss of disc signal is seen. Reactive marrow endplate changes are seen posteriorly, which are hypointense on T1-weighted imaging and hyperintense on T2 weighted imaging, which is most consistent with edema (Modic type I changes). Mild to moderate disc bulge is seen, with a central disc protrusion. Mild facet joint hypertrophy is seen. There is at least moderate right-sided and moderate left-sided neural foraminal narrowing. Mild central canal narrowing is seen. L1-L2: The disc height is well-preserved. Loss of disc signal is seen at this level. Mild to moderate disc bulge is seen, which is slightly eccentric to the right. Mild facet joint hypertrophy is seen. There is at least moderate bilateral neural foraminal narrowing, right worse than left. There is a mild degree of compression seen upon the exiting right L1 nerve root. Mild central canal narrowing is seen. L2-L3: At least moderate loss of disc height and disc signal can be seen. At least moderate disc bulge is seen, which is eccentric to the right. There is at least moderate right-sided and moderate left-sided facet hypertrophy. There is at least moderate left-sided and moderate to severe right-sided neural foraminal narrowing. There is a degree of compression seen upon the exiting right L2 nerve root. Moderate to severe central canal narrowing is seen, as on series 6, image 18 L3-L4: At least moderate loss of disc height and disc signal can be seen. Moderate generalized disc bulge is seen. There is a central disc osteophyte protrusion. There is mild right-sided and at least moderate left-sided facet hypertrophy. There is moderate to severe bilateral neural foraminal narrowing, left worse than right. There is a degree of compression seen upon the exiting nerve roots. Moderate central canal narrowing is seen. L4-L5: Moderate loss of disc height is seen. Loss of disc signal is seen. Moderate generalized disc bulge is seen. There is a central disc osteophyte protrusion. At least moderate facet hypertrophy can be seen. There is at least moderate right-sided and moderate to severe left-sided neural foraminal narrowing. There is a degree of compression seen upon the exiting left L4 nerve root. Moderate central canal narrowing is seen. L5-S1: At least moderate loss of disc height and disc signal can be seen. Moderate disc bulge is seen, with a central disc osteophyte protrusion. Mild to moderate facet hypertrophy can be seen. There is moderate to severe bilateral neural foraminal narrowing seen, with an associated degree of compression seen upon the exiting nerve roots. Mild to moderate central canal narrowing can be seen IMPRESSION: Multiple levels of significant lumbar spine degenerative change can be seen. Several sites of significant neural foraminal narrowing can be seen, with associated exiting nerve root compression. Several sites of significant neural foraminal narrowing can be seen, with associated exiting nerve root compression. Dictated by: Adan Casarez M.D. on 03/15/2024 at 9:44 Approved by: Adan Casarez M.D. on 03/15/2024 at 9:49
== END ==
LOC: MRI 07:01
PROVIDERS: Family Provider Internal Medicine; PCP Internal Medicine; Referring Provider Orthopaedic Surgery; Visit Provider Orthopaedic Surgery
DX: M47.26 Other spondylosis with radiculopathy, lumbar region (principal); M47.27 Other spondylosis with radiculopathy, lumbosacral region; M48.061 Spinal stenosis, lumbar region without neurogenic claudication; M48.07 Spinal stenosis, lumbosacral region
CPT/HCPCS: 72148

== ENCOUNTER → 2024-05-06 11:30 | Outpatient (CLI) | payer OTHER, SELFPAY ==
[2022-09-19 11:07] VITALS: BMI 21.4
--- NOTE | 2024-05-06 11:31 | DI.MG.S_ITS ---
BILATERAL DIGITAL SCREENING MAMMOGRAM 3D/2D WITH CAD: 05/06/2024 CLINICAL: Routine screening. Comparison is made to exams dated: 04/23/2023 mammogram, 10/22/2021 mammogram, and 10/19/2020 mammogram - [facility]. The breasts are extremely dense, which lowers the sensitivity of mammography (category d />75% glandular tissue). Current study was also evaluated with a Computer Aided Detection (CAD) system. No significant masses, calcifications, or other findings are seen in either breast. There has been no significant interval change. IMPRESSION: NEGATIVE There is no mammographic evidence of malignancy. A 1 year screening mammogram is recommended. Based on the Tyrer Cuzick model (a risk assessment model) the patient's lifetime risk is 7.6% and her 10 year risk is 6.9%. According to the ACR, ACS, and NCCN guidelines, an annual breast MRI exam along with mammogram is recommended if the patient's lifetime risk is 20% or greater. This exam was interpreted at Station ID: [id number]. NOTE: For mammograms, a report in lay terms will be sent to the patient. Approximately 15% of breast malignancies will not be visualized mammographically. In the management of a palpable breast mass, a negative mammogram must not discourage biopsy of a clinically suspicious lesion. Electronically Signed By: Edgard akins/fan:05/06/2024 18:33:52 copy to: Deanne Romero letter sent: Normal Exam ACR BI-RADS Category 1: Negative
== END ==
PROVIDERS: Family Provider Internal Medicine; PCP Registered Nurse; Referring Provider Registered Nurse; Visit Provider Registered Nurse
DX: Z12.31 Encounter for screening mammogram for malignant neoplasm of breast (principal); R92.343 Mammographic extreme density, bilateral breasts
CPT/HCPCS: 77063; 77067

== ENCOUNTER 2024-12-07 14:07 | Outpatient (CLI) | payer OTHER, SELFPAY ==
[2022-09-19 11:07] VITALS: BMI 21.4
[2024-12-07] VITALS (7 sets, daily range): BP systolic 142–186; BP diastolic 60–81; PULSE 68–82; RESP 13–18; TEMP 36.2; O2SAT 99–100
[2024-12-07] MEDS: MIDAZOLAM 2 MG/2 ML VIAL IV (16:02)
[2024-12-07] MEDS: BETAMETHASONE 30 MG/5 ML MDV 12 MG INJ (16:07)
--- NOTE | 2024-12-07 16:26 | P.PCN_ITS ---
Date/Time/Diagnoses Date of procedure: 12/07/24 Time of procedure: 16:26 Pre-procedure diagnosis: FORAMINAL STENOSIS WITH LE SYMPTOMS Post-procedure diagnosis: same Procedure Notes Procedure: 1. FLUOROSCOPICALLY GUIDED CONTRAST CONTROLLED TRANSFORAMINAL EPIDURAL STEROID INJECTION - RIGHT L5/S1 TFESI Indications: Radha is referred by EULALIO Howard for treatment of Foraminal Stenosis with Right LE Symptoms Physician: Chris Patrick Total Fluoroscopy time (seconds): 11 Total sedation minutes: 16 Complications: none Procedure in detail & Post-procedure care: FINDINGS Foraminal Nerve Root Compression secondary to disc disease and facet hypertrophy DESCRIPTION OF PROCEDURE Following review of allergy and review of potential side effects and complications, including, but not necessarily limited to, infection, allergic reaction, local tissue breakdown, stroke, temporary or permanent nerve injury, paralysis, and possible , the patient indicated that the patient understood and agreed to proceed. An informed consent document was signed by the patient, witnessed by a nurse, and placed in the patient's chart. Additionally, other treatment options including medications, modalities, and physical therapy were reviewed with the patient. After review of previous anaesthesic history and IV conscious sedation the patient was deemed safe to proceed with today?s procedure with IV conscious sedation as ASA class II designation. Safety time-out was performed to confirm patient ID, procedure to be performed and site of procedure. IV sedation was accomplished with a combination of 2mg of Versed was administered by the RN after DO order, titrated to patient comfort during the course of the procedure while the patient remained responsive to all verbal commands In the prone position following sterile prep and drape of the lumbar region, the right L5/S1 posterior neuroforamen was identified fluoroscopically. The skin was anesthetized via a 25-gauge 1.5-inch needle with 1% lidocaine solution. At this point, a 25-gauge 3.5-inch spinal needle was atraumatically introduced and advanced under fluoroscopic guidance through the posterior right L5/S1 neuroforamen to approximately the anterior aspect of the canal. Depth was confirmed on lateral view. Following negative aspiration, injection of approximately 1.5cc of Isovue 200 under live fluoroscopy in the AP view confirmed excellent flow along the nerve root, into the epidural space without vascular or intrathecal uptake observed Radiological data, including multiple fluoroscopic views of the lumbosacral spine, reveal a spinal needle at the right L5/S1 posterior neuroforamen. Subsequent views show flow of contrast material flowing superiorly and inferiorly along the nerve root confirming epidural flow. Subsequently, a test dose of 1.5cc of 0.25% marcaine solution was administered and patient was observed for two minutes for signs or symptoms of complications, including abdominal pain, shortness of breath, bilateral upper or lower ex tremity weakness, nausea and vomiting, prior to steroid injection. At this point, a total of 3cc or 10mg of dexamethasone and 12mg of betamethasone was injected without incident. The procedure tolerated the procedure well without signs or symptoms of complications prior to transfer to the recovery area continued monitoring without incident. The patient was then transferred to the recovery area where they were observed for an appropriate time after the injection. The patient reported a VAS score of 7 prior to the procedure and a post- procedure VAS of 0. POST OP INSTRUCTIONS The patient was provided a Pain Log to continue to record their response to the target-specific procedure prior to follow-up visit with their referring physician. Additionally, specific post-injection care instructions and a contact number to our office were provided if concerns arise regarding possible complications associated with the procedure are suspected.
== END 2024-12-07 16:50 | disposition home or self-care (01) ==
LOC: RAD 14:07
PROVIDERS: Family Provider Internal Medicine; PCP Registered Nurse; Referring Provider Registered Nurse; Visit Provider Physical Medicine & Rehabilitation
DX: M48.07 Spinal stenosis, lumbosacral region (principal); M51.17 Intervertebral disc disorders with radiculopathy, lumbosacral region; M47.27 Other spondylosis with radiculopathy, lumbosacral region
CPT/HCPCS: 64483; 99152; J0702; J1100; J2250